=== PATIENT | male | born 1960 | race Caucasian/White ===

== ENCOUNTER 2023-04-23 03:15 | Emergency (ER) | payer BC, SELFPAY ==
[2023-04-23 03:21] VITALS: BP 136/75
--- NOTE | 2023-04-23 04:43 | ED.GENMED ---
History of Present Illness
<LON Canales - Last Filed: 04/23/23 05:30>
General
Chief Complaint: Abdominal Pain
Source: patient
Exam Limitations: none
Time Seen by Provider: 04/23/23 04:43
Nursing documentation reviewed up to this point in time: agreed with
Travel History
Have you had any contact with someone who has COVID-19?: No
Do you have any symptoms of coronavirus? Fever > 100 degrees, chills, cough, shortness of breath, sore throat, loss of taste or smell, muscle aches, or headache?: No
History of Present Illness
History of Present Illness:
This is a 63 YOM with PMHx of diverticulosis, renal stones presenting with epigastric pain x1 week. Pt mentioned intermittent nonradiating sharp/burning 4/10 abd pain with belching and acidic taste in his mouth upon waking. Pt was unable to sleep
due to the pain and worries related to his condition. Pt had one previous episode a few months ago. Pt took PeptoBismol and antacids with mild relief over the past week intermittently. Pt also mentioned feeling a bulging mass in epigastric area. Pt
mentioned feeling constipated over the past few days but had normal BM yesterday. Pt denied chest pain, SOB, N/V/D/C, FRANKS, dizziness, vision changes, MSK weakness, sensory changes. Pt has FHx of ACS in both parents, father with mild IA and mother
with CAD and stenting. PE significant for palpable epigastric ventral abd mass.
Past History
<LON Canales - Last Filed: 04/23/23 05:30>
Past History
ED Past Medical History: None; Negative HTN, Hypercholesterolemia or NIDDM
ED Past Surgical History: Urological (Kidney stone)
Social History
Tobacco: Former smoker
Alcohol: None
Personal:
Living: with family
Review of Systems
<LON Canales - Last Filed: 04/23/23 05:30>
Review of Systems
Allergies reviewed?: Yes
All Other Systems: ROS reviewed and negative except as documented in HPI and ROS
Constitutional: Reports no symptoms
EENT: Reports no symptoms
Respiratory: Reports no symptoms
Cardiac: Reports no symptoms
ABD/GI: Reports abdominal pain
: Reports no symptoms
Musculoskeletal: Reports no symptoms
Skin: Reports no symptoms
Neurological: Reports no symptoms
Hematologic/Lymphatic: Reports no symptoms
Psychiatric: Reports no symptoms
Phy Exam
<LON Canales - Last Filed: 04/23/23 05:30>
General Physical Exam
General Presentation: well appearing
General age: appears stated age
General Skin: warm and dry
General Habitus: normal
General Mental: alert
General Hydration: appears well hydrated
ENT Exam
ENT Exam: EOMI, neck supple and swallowing well
Eye Exam
Eye Exam: PERRL and EOMI
Cardiovascular Exam
Cardiovascular Exam: regular rate/rhythm
Pulmonary Exam
Pulmonary Exam: lungs clear, no respiratory distress, no rales, chest non tender, no crackles, no rhonchi, no stridor, no wheezing and no cough
Gastrointestinal Exam
Gastrointestinal Exam: normal bowel sounds, non tender, soft, no pulsatile mass, non distended and mass (ventral hernia)
Neurological Exam
Neurological Exam: alert, oriented x3, no motor deficits, no sensory deficits and speech normal
Skin Exam
Skin Exam: normal color and warm/dry
Psychiatric Exam
Psychiatric Exam: normal mood/affect
Course
<LON Canales - Last Filed: 04/23/23 05:30>
Orders/Labs/Results
Orders:
Orders
04/23/23 03:30
EKG [Electrocardiogram (*1)] Urgent
Reason for Study: Abdominal Pain
EKG- Treatment ONCE
04/23/23 05:16
IV Insert/Care/Rem.- Treatment PRN
04/23/23 05:18
Pantoprazole [Protonix IV] 40 mg IV NOW STA
04/23/23 05:33
Complete Blood Count/With Diff Urgent
Comprehensive Metabolic Panel Urgent
Lipase Urgent
Troponin I Urgent
Abnormal Lab Results
04/23/23
05:33
Absolute Monos (auto) 1.0 H 10^3/uL
(0.1-0.6)
Monocytes % 15.9 H %
(1.7-9.3)
Glucose 113 H mg/dl
(70-99)
04/23/23 05:33
04/23/23 05:33
Vital Signs
Initial and Last Documented VS:
Initial Vital Signs
Temp Pulse Resp BP Pulse Ox
98.1 F 70 16 136/75 97
04/23/23 03:21 04/23/23 03:21 04/23/23 03:21 04/23/23 03:21 04/23/23 03:21
Last Documented Vital Signs
Temp Pulse Resp BP Pulse Ox
98.1 F 60 23 125/64 97
04/23/23 03:21 04/23/23 05:45 04/23/23 05:42 04/23/23 05:42 04/23/23 05:45
<Toro Justice, DO - Last Filed: 04/23/23 06:30>
Orders/Labs/Results
Orders:
Orders
04/23/23 03:30
EKG [Electrocardiogram (*1)] Urgent
Reason for Study: Abdominal Pain
EKG- Treatment ONCE
04/23/23 05:16
IV Insert/Care/Rem.- Treatment PRN
04/23/23 05:18
Pantoprazole [Protonix IV] 40 mg IV NOW STA
04/23/23 05:33
Complete Blood Count/With Diff Urgent
Comprehensive Metabolic Panel Urgent
Lipase Urgent
Troponin I Urgent
Abnormal Lab Results
04/23/23
05:33
Absolute Monos (auto) 1.0 H 10^3/uL
(0.1-0.6)
Monocytes % 15.9 H %
(1.7-9.3)
Glucose 113 H mg/dl
(70-99)
04/23/23 05:33
04/23/23 05:33
Vital Signs
Initial and Last Documented VS:
Initial Vital Signs
Temp Pulse Resp BP Pulse Ox
98.1 F 70 16 136/75 97
04/23/23 03:21 04/23/23 03:21 04/23/23 03:21 04/23/23 03:21 04/23/23 03:21
Last Documented Vital Signs
Temp Pulse Resp BP Pulse Ox
98.1 F 60 23 125/64 97
04/23/23 03:21 04/23/23 05:45 04/23/23 05:42 04/23/23 05:42 04/23/23 05:45
<LON Canales - Last Filed: 04/23/23 05:30>
MDM/Problems Addressed
Differential Diagnosis Includes:
IA, cholecystitis, pancreatitis, GERD, hiatal hernia
MDM/Problems Addressed:
63 YOM presenting with epigastric pain
<LON Canales - Last Filed: 04/23/23 05:30>
*Pulse Oximetry
Patient hypoxic: no
*Critical Care Note
Total Time (30-74mins, 75-104mins- exclusive of procedures): Not Applicable
<Toro Justice DO - Last Filed: 04/23/23 06:30>
*EKG
Interpreted by ED Provider?: Yes
EKG Intrepretation Date: 04/23/23
EKG Intrepretation Time: 03:40
Interpretation: abnormal
Comparison EKG: no comparison EKG present
Heart Rate: 57
Rate: bradycardiac
Rhythm: sinus
[place]: normal axis
Interval: normal interval
QRS Pattern: normal QRS
Ischemia: no ischemia
*Telecommunications Professional Interpretation
Rate: bradycardiac
Interpretation: normal
Heart Rate: 58
Rhythm: sinus
Data Reviewed
Further Testing Considered But Not Given:
Chest x-ray, ultrasound abdomen and CT chest not indicated
<Toro Justice, - Last Filed: 04/23/23 06:30>
Patient Management
Social determinants of health affecting care: Living situation
Escalation/DeEscalation of care consider admission/obs:
Admit not indicated
ED Attending Note
<LON Canales - Last Filed: 04/23/23 05:30>
-
Portions of this chart may have been created with voice recognition software.� Occasional wrong word or��sound alike� substitutions may have occurred due to the inherent limitations of voice recognition software.
<Toro Justice DO - Last Filed: 04/23/23 06:30>
ED Attending Note
Patient seen and examined by attending physician: Yes
I performed the substantive portion of visit, reviewed & personally made and approve the management plan that is documented in note by myself or ANNI.: Yes
I performed a history and physical exam of patient and discussed management with resident, I reviewed resident's note and agree with documented findings and plan of care.: Yes
ED Attending Note:
I have reviewed and agree with history and treatment plan by Torie Astudillo. My exam revealed
Physical Exam
General: no apparent distress, not acutely ill
Neck: supple. no meningeal signs. normal posterior pharynx
Heart: s1/s2 regular rate and rhythm, no murmur. equal radial
pulses.
HEENT: Pupils equal round reactive to light, EOMI
Lungs: no acute respiratory distress. clear bilaterally
Abdomen: normal bowel sounds. not tender. no CVAT, ventral hernia, epigastric region
Neuro: alert and oriented. no focal neurological deficits cranial nerves II through XII intact
Skin: no rash
Psychiatric: well kept. interactive and cooperative
Extremities: no edema. no calf tenderness. negative homans. good distal pulses
63-year-old male with epigastric pain, symptoms consistent with reflux. EKG normal, troponin lipase and LFTs negative. Patient feels improved after IV Protonix. Discharged with prescription Protonix. Return precautions given.
Discharge Plan
Departure
Patient Disposition: Home (Routine Discharge)
Date of Disposition: 04/23/23
Time of Disposition: 06:22
Patient with high blood pressure during this ER visit?: Yes
Condition: Good
Discharge Problem:
Acute epigastric pain, Gastroesophageal reflux disease
Instructions: Acid Reflux and GERD in Adults (DC), Abdominal Pain, BLOOD PRESSURE
Prescriptions:
New
pantoprazole [Protonix] 40 mg tablet,delayed release (DR/EC)
40 mg PO DAILY Qty: 30 0RF
No Action
psyllium 425 GM powder
1 dose PO DAILY
Referrals:
Claude Argueta CRNP [Family Provider] -
Interventions
Interventions:
*General Assessment Last Done: 04/23/23 03:21
*Neglect/Abuse Screening Last Done: 04/23/23 03:21
ED- Fall Risk Assessment Last Done: 04/23/23 03:21
*ED COVID-19 Vaccine History Last Done: 04/23/23 03:21
[2023-04-23 05:37] LABS: % Basophils 0.5 % (0-2); % Eosinophils 0.8 % (0-6); % Immature Granulocytes 0.3 % (0-0.5); % Lymphocytes 25.8 % (20.5-51.1); % Monocytes 15.9 % (1.7-9.3); % Neutrophils 56.7 % (42.2-75.2); Absolute Eosinophils 0.1 10^3/uL (0-0.7); Absolute Lymphocytes 1.7 10^3/uL (1.2-3.4); Absolute Neutrophils 3.7 10^3/uL (1.4-6.5); Hematocrit 46.6 % (39.0-52.0); Hemoglobin 16.6 g/dL (13.0-18.0); Mean Corp Hgb Conc. 35.6 g/dL (33.0-37.0); Mean Corpuscular Hgb 30.9 pg (27.0-31.0); Mean Corpuscular Volume 86.6 fL (80.0-94.0); Mean Platelet Volume 8.1 fL (7.4-10.4); Nucleated Red Blood Cells % 0 % (-); Platelet Count 202 10^3/uL (130-400); Red Blood Cell Count 5.38 10^6/uL (4.70-6.10); Red Cell Dist. Width 13.2 % (11.5-14.5); White Blood Cell Count 6.6 10^3/uL (4.8-10.8)
[2023-04-23] MEDS: PROTONIX IV 40 MG IV (05:39)
[2023-04-23 05:42] VITALS: BP 125/64
[2023-04-23 05:54] LABS: ALT (SGPT) 29 U/L (0-50); AST (SGOT) 25 U/L (17-59); Albumin 4.2 g/dl (3.5-5.0); Alkaline Phosphatase 64 U/L (38-126); Blood Urea Nitrogen 16 mg/dl (9-20); Calcium 9.2 mg/dl (8.4-10.2); Carbon Dioxide 27 mmol/L (22-30); Chloride 106 mmol/L (98-107); Glucose 113 mg/dl (70-99); Lipase 131 U/L (23-300); Potassium 4.1 mmol/L (3.5-5.1); Sodium 136 mmol/L (135-145); Total Bilirubin 0.8 mg/dl (0.2-1.3); Total Protein 6.7 g/dl (6.3-8.2); eGFR > 60.00
[2023-04-23 06:05] LABS: Troponin I < 0.012 ng/ml
== END 2023-04-23 07:04 | disposition home or self-care (01) ==
LOC: EMR 03:15
PROVIDERS: EMERGENCY PHYSICIAN Emergency Medicine; FAMILY PHYSICIAN Registered Nurse
DX: R10.13 Epigastric pain (principal); K21.9 Gastro-esophageal reflux disease without esophagitis; Z82.49 Family history of ischemic heart disease and other diseases of the circulatory system; Z87.442 Personal history of urinary calculi; Z87.891 Personal history of nicotine dependence
CPT/HCPCS: 99283; 96374; 80053; 83690; 84484; 85025; 93005

== ENCOUNTER 2023-04-25 06:15 | Emergency (ER) | payer BC, SELFPAY ==
[2023-04-25 06:17] VITALS: BP 140/80
--- NOTE | 2023-04-25 07:50 | ED.GENMED ---
History of Present Illness
<CHARLES Lacey - Last Filed: 04/25/23 17:13>
General
Chief Complaint: Abdominal Pain
Source: patient
Exam Limitations: none
Time Seen by Provider: 04/25/23 07:06
Nursing documentation reviewed up to this point in time: agreed with
Travel History
Have you had any contact with someone who has COVID-19?: No
Do you have any symptoms of coronavirus? Fever > 100 degrees, chills, cough, shortness of breath, sore throat, loss of taste or smell, muscle aches, or headache?: No
History of Present Illness
History of Present Illness:
63-year-old male presents to the ER for evaluation of upper abdominal pain. Patient reports he was here 2 days ago. He was diagnosed with reflux at that time. He Does complain of pain in the epigastric area but now feels pain more in the right
upper quadrant area. Patient denies any nausea/vomiting. Patient was going to try Pepto-Bismol but did not. Patient reports pain seems to be constantly there but becomes worse at times. He is unsure if it is made worse with food. He was
diagnosed with ventral hernia when he was seen here 2 days ago. He does feel a bulge in his upper abdominal region.
He denies any chest pain back pain. He denies any recent fever chills.
Past History
<CHARLES Lacey - Last Filed: 04/25/23 17:13>
Past History
ED Past Medical History: None; Negative HTN, Hypercholesterolemia or NIDDM
ED Past Surgical History: Urological (Kidney stone)
Social History
Tobacco: Former smoker
Alcohol: None
Personal:
Living: with family
Review of Systems
<CHARLES Lacey - Last Filed: 04/25/23 17:13>
Review of Systems
Allergies reviewed?: Yes
All Other Systems: ROS reviewed and negative except as documented in HPI and ROS
Constitutional: Reports no symptoms; Denies fever, fatigue or chills
EENT: Reports no symptoms
Respiratory: Reports no symptoms
Cardiac: Reports no symptoms
ABD/GI: Reports abdominal pain; Denies nausea, vomiting or diarrhea
: Reports no symptoms
Skin: Reports no symptoms
Neurological: Reports no symptoms
Psychiatric: Reports no symptoms
Phy Exam
<CHARLES Lacey - Last Filed: 04/25/23 17:13>
General Physical Exam
General Presentation: no apparent distress
General age: appears stated age
General Skin: warm and dry
General Habitus: normal
General Mental: alert
General Hydration: appears well hydrated
Gastrointestinal Exam
Gastrointestinal Exam: non tender and soft
Neurological Exam
Neurological Exam: alert and oriented x3
Musculoskeletal Exam
Musculoskeletal Exam: full ROM
Skin Exam
Skin Exam: normal color and warm/dry
Psychiatric Exam
Psychiatric Exam: normal mood/affect
Course
<CHARLES Lacey - Last Filed: 04/25/23 17:13>
Orders/Labs/Results
Orders:
Orders
04/25/23 07:45
IV Insert/Care/Rem.- Treatment PRN
0.9% Sodium Chloride 1000 ml [Nss] 1,000 ml IV BOLUS
04/25/23 07:49
Mag Hydrox/Al Hydrox/Simeth [Maalox] 30 ml Phenobarb/Hyoscy/Atropine/Scop [] 10 ml PO NOW
04/25/23 07:51
US Abdomen Complete/Upper Urgent
Comment:
Reason For Exam: epigastric/ruq pain
04/25/23 08:08
Mag Hydrox/Al Hydrox/Simeth [Maalox] 30 ml .ROUTE .STK-MED ONE
Phenobarb/Hyoscy/Atropine/Scop [] 10 ml .ROUTE .STK-MED ONE
04/25/23 08:09
Complete Blood Count/With Diff Urgent
Comprehensive Metabolic Panel Urgent
Lipase Urgent
04/25/23 10:37
CT Abd/pelvis W Iv Cont Urgent
Comment:
Reason For Exam: Upper abd pain
Abnormal Lab Results
04/25/23
08:09
Absolute Monos (auto) 0.8 H 10^3/uL
(0.1-0.6)
Monocytes % 14.4 H %
(1.7-9.3)
Sodium 134 L mmol/L
(135-145)
Glucose 113 H mg/dl
(70-99)
04/25/23 08:09
04/25/23 08:09
Vital Signs
Initial and Last Documented VS:
Initial Vital Signs
Temp Pulse Resp BP Pulse Ox
97.8 F 70 24 140/80 98
04/25/23 06:17 04/25/23 06:17 04/25/23 06:17 04/25/23 06:17 04/25/23 06:17
Last Documented Vital Signs
Temp Pulse Resp BP Pulse Ox
97.8 F 63 18 119/70 97
04/25/23 06:17 04/25/23 12:18 04/25/23 12:18 04/25/23 12:18 04/25/23 12:18
Clinical Lab Scientist consulted with Physician
Clinical Lab Scientist consulted with physician?: Yes
Name of Physician Consulted: elmo
<Mark Prieto, DO - Last Filed: 04/25/23 10:43>
Orders/Labs/Results
Orders:
Orders
04/25/23 07:45
IV Insert/Care/Rem.- Treatment PRN
0.9% Sodium Chloride 1000 ml [Nss] 1,000 ml IV BOLUS
04/25/23 07:49
Mag Hydrox/Al Hydrox/Simeth [Maalox] 30 ml Phenobarb/Hyoscy/Atropine/Scop [] 10 ml PO NOW
04/25/23 07:51
US Abdomen Complete/Upper Urgent
Comment:
Reason For Exam: epigastric/ruq pain
04/25/23 08:08
Mag Hydrox/Al Hydrox/Simeth [Maalox] 30 ml .ROUTE .STK-MED ONE
Phenobarb/Hyoscy/Atropine/Scop [] 10 ml .ROUTE .STK-MED ONE
04/25/23 08:09
Complete Blood Count/With Diff Urgent
Comprehensive Metabolic Panel Urgent
Lipase Urgent
04/25/23 10:37
CT Abd/pelvis W Iv Cont Urgent
Comment:
Reason For Exam: Upper abd pain
Abnormal Lab Results
04/25/23
08:09
Absolute Monos (auto) 0.8 H 10^3/uL
(0.1-0.6)
Monocytes % 14.4 H %
(1.7-9.3)
Sodium 134 L mmol/L
(135-145)
Glucose 113 H mg/dl
(70-99)
04/25/23 08:09
04/25/23 08:09
Vital Signs
Initial and Last Documented VS:
Initial Vital Signs
Temp Pulse Resp BP Pulse Ox
97.8 F 70 24 140/80 98
04/25/23 06:17 04/25/23 06:17 04/25/23 06:17 04/25/23 06:17 04/25/23 06:17
Last Documented Vital Signs
Temp Pulse Resp BP Pulse Ox
97.8 F 63 18 119/70 97
04/25/23 06:17 04/25/23 12:18 04/25/23 12:18 04/25/23 12:18 04/25/23 12:18
<CHARLES Lacey - Last Filed: 04/25/23 17:13>
MDM/Problems Addressed
Differential Diagnosis Includes:
not limited to: Reflux, biliary colic, pancreatitis
MDM/Problems Addressed:
Patient was seen here 2 days ago diagnosed with acute epigastric pain/reflux. Patient was given a prescription for Protonix. He reports he took 1 dose of Protonix and actually 1 dose of Zantac. He believes the Zantac may have helped a little bit
but presented to the ER today again with complaints of epigastric discomfort more discomfort in the right upper quadrant. With pain increased in the right upper quadrant today and ultrasound was performed which was negative for acute findings.
LFTs are normal. Patient was given GI cocktail he will feel slight improve. Symptoms still consistent reflux will need GI, endoscopy.
Pt was eval by ED physician CAT scan ordered which does also show constipation.
Will DC with patient continuing Protonix will give GI follow-up and have patient start Miralax. Patient does have his own GI specialist Dr. Giovanni Tapia whom he will like to see
<CHARLES Lacey - Last Filed: 04/25/23 17:13>
*Radiology
Radiology exam reviewed: radiology read reviewed
*Pulse Oximetry
Patient hypoxic: no
*Critical Care Note
Total Time (30-74mins, 75-104mins- exclusive of procedures): Not Applicable
Data Reviewed
Review of Other/Old Records Reveals: Other (prior ED visit )
ED Attending Note
<CHARLES Lacey - Last Filed: 04/25/23 17:13>
-
Portions of this chart may have been created with voice recognition software.� Occasional wrong word or��sound alike� substitutions may have occurred due to the inherent limitations of voice recognition software.
<Mark Prieto DO - Last Filed: 04/25/23 10:43>
ED Attending Note
Patient seen and examined by attending physician: Yes
I performed the substantive portion of visit, reviewed & personally made and approve the management plan that is documented in note by myself or ANNI.: Yes
ED Attending Note:
I have seen and evaluated the patient with a [id number] encounter. I have spoken to the advance practicer provider and involved in the medical history, the physical exam, medical decision making.
Evaluation and management service: agree unless noted differently below.
Results interpretation: agree unless noted differently below.
Focused HPI: 63-year-old male presenting with upper abdominal pain. He was seen in the emergency department recently and discharged with plan for GI follow-up. It was presumed gastritis. However, symptoms have worsened.
Physical exam: Well-appearing and nontoxic. Mild epigastric discomfort
Medical Decision Making: Ultrasound performed showing no evidence of gallbladder pathology. Given the persistent symptoms, will obtain CT but discussed likely gastritis, treatment and follow-up with GI
Discharge Plan
Departure
Patient Disposition: Home (Routine Discharge)
Date of Disposition: 04/25/23
Time of Disposition: 12:03
Patient with high blood pressure during this ER visit?: Yes
Condition: Fair
Covid-19: Not Applicable
Discharge Problem:
upper abdominal pain , Acute constipation
Instructions: Constipation, Adult (DC), Abdominal Pain, BLOOD PRESSURE
Prescriptions:
No Action
pantoprazole [Protonix] 40 mg tablet,delayed release (DR/EC)
40 mg PO DAILY Qty: 30 0RF
acetaminophen [Tylenol Extra Strength] 500 mg Tablet
1,000 mg PO BIDPRN PRN (Reason: mild pain)
carboxymethylcellulose sodium [Refresh Tears] 0.5 % Drops
1 drp BOTH EYES BID PRN (Reason: dry eyes)
naproxen sodium [Aleve] 220 mg Tablet
220 mg PO DAILYPRN PRN (Reason: mild pain)
magnesium 200 mg Tablet
400 mg PO QPM
Visbiome 112.5 billion cell Capsule
1 cap PO DAILY
Centrum Silver 400-250 mcg Tablet,Chewable
2 tab PO DAILY
Metamucil 3.4 gram/5.4 gram Powder
1 tsp PO HS
Referrals:
Claude Argueta CRNP [Family Provider] -
Activity Restrictions/Additional Instructions:
Follow-up with your GI specialist as soon as possible for further reevaluation. You likely may need endoscopy. Call today for an appointment. Continue previously prescribed Protonix. You may also continue to take Metamucil as discussed and for
constipation please start MiraLAX daily. Return if any worsening of symptoms.
Interventions
Interventions:
*Risk Screen - Suicide Last Done: 04/25/23 06:17
*General Assessment Last Done: 04/25/23 09:35
*Neglect/Abuse Screening Last Done: 04/25/23 06:17
ED- Fall Risk Assessment Last Done: 04/25/23 09:35
*ED COVID-19 Vaccine History Last Done: 04/25/23 09:35
*Nursing Disposition Last Done: 04/25/23 12:18
[id number] Assessment Last Done: 04/25/23 09:35
Discharge Date and Time
Discharge Date/Time: 04/25/23 12:18
[2023-04-25] MEDS: MAALOX 40 PO (08:11)
[2023-04-25] MEDS: NSS 1000 IV (08:13)
[2023-04-25 08:25] LABS: % Basophils 0.9 % (0-2); % Eosinophils 0.7 % (0-6); % Immature Granulocytes 0.2 % (0-0.5); % Lymphocytes 23.9 % (20.5-51.1); % Monocytes 14.4 % (1.7-9.3); % Neutrophils 59.9 % (42.2-75.2); Absolute Basophils 0.1 10^3/uL (0-0.2); Absolute Lymphocytes 1.4 10^3/uL (1.2-3.4); Absolute Monocytes 0.8 10^3/uL (0.1-0.6); Absolute Neutrophils 3.4 10^3/uL (1.4-6.5); Hematocrit 46.7 % (39.0-52.0); Hemoglobin 16.5 g/dL (13.0-18.0); Mean Corp Hgb Conc. 35.3 g/dL (33.0-37.0); Mean Corpuscular Hgb 30.8 pg (27.0-31.0); Mean Corpuscular Volume 87.3 fL (80.0-94.0); Mean Platelet Volume 8.3 fL (7.4-10.4); Nucleated Red Blood Cells % 0 % (-); Platelet Count 203 10^3/uL (130-400); Red Blood Cell Count 5.35 10^6/uL (4.70-6.10); Red Cell Dist. Width 12.9 % (11.5-14.5); White Blood Cell Count 5.6 10^3/uL (4.8-10.8)
[2023-04-25 08:39] LABS: ALT (SGPT) 25 U/L (0-50); AST (SGOT) 24 U/L (17-59); Albumin 4.2 g/dl (3.5-5.0); Alkaline Phosphatase 63 U/L (38-126); Blood Urea Nitrogen 15 mg/dl (9-20); Calcium 8.7 mg/dl (8.4-10.2); Carbon Dioxide 29 mmol/L (22-30); Chloride 101 mmol/L (98-107); Glucose 113 mg/dl (70-99); Lipase 77 U/L (23-300); Potassium 4.2 mmol/L (3.5-5.1); Sodium 134 mmol/L (135-145); Total Bilirubin 0.8 mg/dl (0.2-1.3); Total Protein 6.5 g/dl (6.3-8.2); eGFR > 60.00
[2023-04-25 12:18] VITALS: BP 119/70
== END 2023-04-25 12:18 | disposition home or self-care (01) ==
LOC: EMR 06:15
PROVIDERS: Nurse Practitioner; EMERGENCY PHYSICIAN Student in an Organized Health Care Education/Training Program; FAMILY PHYSICIAN Registered Nurse
DX: R10.11 Right upper quadrant pain (principal); K59.09 Other constipation; K21.9 Gastro-esophageal reflux disease without esophagitis; Z87.442 Personal history of urinary calculi; Z87.891 Personal history of nicotine dependence
CPT/HCPCS: 99284; 96360; 74177; 76700; 80053; 83690; 85025; Q9967

== ENCOUNTER 2023-11-10 12:54 | Inpatient (IN) | payer BC, SELFPAY ==
[2023-11-10] VITALS (18 sets, daily range): BP systolic 109–151; BP diastolic 53–102; BMI 24.3
[2023-11-10 08:18] LABS: % Basophils 0.5 % (0-2); % Immature Granulocytes 0.2 % (0-0.5); % Lymphocytes 22.7 % (20.5-51.1); % Monocytes 13.9 % (1.7-9.3); % Neutrophils 59.7 % (42.2-75.2); Absolute Eosinophils 0.2 10^3/uL (0-0.7); Absolute Lymphocytes 1.4 10^3/uL (1.2-3.4); Absolute Monocytes 0.8 10^3/uL (0.1-0.6); Absolute Neutrophils 3.6 10^3/uL (1.4-6.5); Hematocrit 45.3 % (39.0-52.0); Hemoglobin 15.9 g/dL (13.0-18.0); Mean Corp Hgb Conc. 35.1 g/dL (33.0-37.0); Mean Corpuscular Hgb 30.2 pg (27.0-31.0); Mean Corpuscular Volume 86.1 fL (80.0-94.0); Mean Platelet Volume 8.3 fL (7.4-10.4); Nucleated Red Blood Cells % 0 % (-); Platelet Count 201 10^3/uL (130-400); Red Blood Cell Count 5.26 10^6/uL (4.70-6.10); Red Cell Dist. Width 12.8 % (11.5-14.5)
[2023-11-10 08:32] LABS: ALT (SGPT) 25 U/L (0-50); AST (SGOT) 26 U/L (17-59); Albumin 4.3 g/dl (3.5-5.0); Alkaline Phosphatase 57 U/L (38-126); Blood Urea Nitrogen 24 mg/dl (9-20); Calcium 9.5 mg/dl (8.4-10.2); Carbon Dioxide 26 mmol/L (22-30); Chloride 106 mmol/L (98-107); Estimated Creatinine Clearance 85 ml/min; Glucose 130 mg/dl (70-99); Potassium 4.2 mmol/L (3.5-5.1); Sodium 138 mmol/L (135-145); Total Bilirubin 0.5 mg/dl (0.2-1.3); Total Protein 6.4 g/dl (6.3-8.2); eGFR > 60.00
--- NOTE | 2023-11-10 08:36 | ED.GENMED ---
History of Present Illness
General
Chief Complaint: Chest Pain
Source: patient
Exam Limitations: none
Time Seen by Provider: 11/10/23 07:57
Nursing documentation reviewed up to this point in time: agreed with
History of Present Illness
History of Present Illness:
63-year-old male past medical history of hyperlipidemia presenting to the emergency department today with concerns of chest pain radiation to his neck and some degree of headache starting this morning after walking downstairs. Also some discomfort
into his left arm. Was doing some squats just prior to this exercising this morning. Denies similar symptoms in the past had some mild associated shortness of breath nausea and also felt mildly sweaty but believes this may have been from his
exercise. Denies any recent trauma surgery immobilization, leg swelling.
Past History
Past History
ED Past Medical History: None; Negative HTN, Hypercholesterolemia or NIDDM
ED Past Surgical History: Urological (Kidney stone)
Social History
Tobacco: Former smoker
Alcohol: None
Personal:
Living: with family
Review of Systems
Review of Systems
Allergies reviewed?: Yes
All Other Systems: ROS reviewed and negative except as documented in HPI and ROS
Phy Exam
Physical Exam
Physical Exam:
GENERAL: Alert , in no apparent distress
EYE: pupils equal and reactive
NECK: Supple, no significant adenopathy.
ENT: o/p clr, mmm.
CARDIAC: Regular rate and rhythm .
LUNGS: Clear breath sounds bilaterally, no acute respiratory distress, no wheezes/rales/rhonchi
ABDOMEN: Soft, without focal tenderness, no r/g, no cvat
NEUROLOGICAL: Alert and oriented, no focal neuro deficits
SKIN: Warm and dry, skin intact.
MUSCULOSKELETAL: No edema, well perfused.
PSYCH: Normal and appropriate interaction.
Scores
Heart Score for Chest Pain Patients
STEMI patient?: No
History: Highly Suspicious
ECG: Nonspecific Repolarization
Age: >45 - <65 years
Risk Factors: 1 or 2 Risk Factors
Troponin: >/= 3 x Normal Limit
Heart Score for Chest Pain Patients: 7
Heart Score Risk: 72.7 % MACE over next 6 weeks
Course
Orders/Labs/Results
Orders:
Orders
11/10/23
Electrocardiogram (*1) Stat
Comment: DONE EMR
11/10/23 07:37
Electrocardiogram (*1) Urgent
Reason for Study: Chest Pain
EKG- Treatment ONCE
11/10/23 08:08
Complete Blood Count/With Diff Urgent
Comprehensive Metabolic Panel Urgent
Troponin I Urgent
11/10/23 08:17
Aspirin 325 mg PO NOW STA
Chest [CR Chest - 2 Views ] Urgent
Comment:
Reason For Exam: cp
11/10/23 09:43
CT Head W/o Iv Contrast Urgent
Comment:
Reason For Exam: FRANKS, new severe, no hx
Diphenhydramine [Benadryl] 25 mg IV NOW STA
Metoclopramide [Reglan] 10 mg IV NOW STA
11/10/23 09:44
0.9% Sodium Chloride 1000 ml [Nss] 1,000 ml IV BOLUS
11/10/23 10:20
EKG [Electrocardiogram (*1)] Urgent
Reason for Study: Chest Pain
EKG- Treatment ONCE
11/10/23 11:02
Troponin I Urgent
Urinalysis Reflex To Culture Urgent
Date Specimen was Collected: 11/10/23
Time Specimen was Collected: 10:55
11/10/23 12:34
PTT Urgent
Comment: Obtain baseline before beginning heparin infusion if not already collected
Heparin 4,000 units IV NOW STA
Nursing to Place Non Medication Order As Directed
Physician Order: PTT 6 hours after initial start of Heparin infusion
11/10/23 12:36
Nitroglycerin Sublingual [Nitrostat (Sublingual)] 0.4 mg SL [id number] PRN
11/10/23 12:37
Admit/Transfer Patient As Directed
Co-Sign Provider:
Level of Care: Inpatient admission
Assign to:: IVU
Physician / Group: Dr. Avilez
Diagnosis: NSTEMI
Reason for Hospitalization: NSTEMI
Expected length of stay greater than two midnights?: Yes
ELOS- Estimated Length of Stay in days: 3
I certify the patient meets the requirements for IP care: Yes
11/10/23 12:45
Heparin 17391 Units/250 ml 25,000 units in 250 ml IV PER PROTOCOL
Weight to be used for heparin protocol in kilograms (kg):: 81.1
Protocol:: Cardiac Tx/Acute Coronary
PTT Goal Range to be used:: PTT 73 to 111 seconds
Order type:: Initial
INITIAL Infusion Dose (UNITS/KG/hr) & then follow protocol:: 15 units/kg/hr
Infusion Dose in UNITS/hr & then follow protocol (UNITS/hr):: 1,200
INFUSION RATE in mL/hr & then follow protocol (mL/hr):: 12
PTT less than or equal to 64 seconds:: Increase rate by 200 units/hr (+ 2 mL/hr)
PTT 64.1 to 72.9 seconds:: Increase rate by 100 units/hr (+ 1 mL/hr)
PTT 73 to 111 seconds:: Target Range. No change in rate.
PTT 111.1 to 130.9 seconds:: Decrease rate by 100 units/hr (- 1 mL/hr)
PTT 131 to 199.9 seconds:: HOLD for 1 hr. Then decrease rate by 200 units/hr (- 2 mL/hr)
PTT greater than or equal to 200 seconds:: HOLD for 2 hrs & Notify Provider. Then decrease by 200 units/hr (-
2 mL/hr)
Lab follow-up:: Each change, PTT q6h until 2 consecutive are therapeutic. Then PTT
daily.
Abnormal Lab Results
11/10/23 11/10/23
08:08 11:02
Absolute Monos (auto) 0.8 H 10^3/uL
(0.1-0.6)
Monocytes % 13.9 H %
(1.7-9.3)
BUN 24 H mg/dl
(9-20)
Glucose 130 H mg/dl
(70-99)
Troponin I 0.758 H* D ng/ml
11/10/23 08:08
11/10/23 08:08
Vital Signs
Initial and Last Documented VS:
Initial Vital Signs
Temp Pulse Resp BP Pulse Ox
97.7 F 64 16 137/81 99
11/10/23 07:46 11/10/23 07:46 11/10/23 07:46 11/10/23 07:46 11/10/23 07:46
Last Documented Vital Signs
Temp Pulse Resp BP Pulse Ox
97.7 F 50 18 132/75 98
11/10/23 07:46 11/10/23 12:00 11/10/23 12:00 11/10/23 12:00 11/10/23 12:00
MDM/Problems Addressed
MDM/Problems Addressed:
63-year-old male presenting to the emergency department today with concerns of chest pressure to the central chest with radiation to his neck he claims that he had some sweatiness and nausea associated. Also some mild shortness of breath. Symptoms
have improved since arrival here. Initial EKG appears normal no signs of ischemia or arrhythmia. No change from previous chest x-ray normal patient with mildly elevated blood pressure otherwise vital signs are normal labs unremarkable. Second
troponin ordered elevated concerning for NSTEMI EKG without significant changes Case discussed with cardiology that will accept to their care. Patient started on heparin drip
*Critical Care Note
Total Time (30-74mins, 75-104mins- exclusive of procedures): Not Applicable
ED Attending Note
-
Portions of this chart may have been created with voice recognition software.� Occasional wrong word or��sound alike� substitutions may have occurred due to the inherent limitations of voice recognition software.
Discharge Plan
Departure
Patient Disposition: Admit
Date of Disposition: 11/10/23
Time of Disposition: 12:59
Admit to: IVU
Admit to doctor: Fatmata
Presentation/result/management discussed w/ accepting MD/DO: Cardiology
Patient with high blood pressure during this ER visit?: No
Condition: Good
Covid-19: Not Applicable
Discharge Problem:
Acute non-ST elevation myocardial infarction (NSTEMI)
Interventions
Interventions:
*Risk Screen - Suicide Last Done: 11/10/23 07:56
*General Assessment Last Done: 11/10/23 07:56
*Neglect/Abuse Screening Last Done: 11/10/23 07:56
ED- Fall Risk Assessment Last Done: 11/10/23 07:56
*ED COVID-19 Vaccine History Last Done: 11/10/23 07:56
ED- Cardiac Assessment Last Done: 11/10/23 07:56
[2023-11-10 08:41] LABS: Troponin I 0.033 ng/ml
[2023-11-10] MEDS: ASPIRIN 325 MG PO (09:14)
[2023-11-10] MEDS: NSS 1000 IV (11:05)
[2023-11-10] MEDS: REGLAN 10 MG IV (11:06)
[2023-11-10] MEDS: BENADRYL 25 MG IV (11:06)
[2023-11-10 11:48] LABS: Urine Albumin Negative (Neg - Trace); Urine Bilirubin Negative (Negative); Urine Character Clear (Clear); Urine Color Yellow; Urine Glucose Negative (Negative); Urine Ketone Negative (Negative); Urine Leukocyte Negative (Negative); Urine Nitrite Negative (Negative); Urine Occult Blood Negative (Negative); Urine Specific Gravity 1.015 (<1.030); Urine Urobilinogen Negative (Neg - 1+)
[2023-11-10 11:52] LABS: Troponin I 0.758 ng/ml
--- NOTE | 2023-11-10 12:43 | HPS.HSE ---
Addendum entered and electronically signed by Geremias Avilez MD 11/10/23 14:20:
I saw and examined the patient.
The DIGITAL MEDIA COORDINATOR's note was reviewed and I agree with the note.
Comment: 63 y/o male with dyslipidemia and GERD who is here for evaluation of chest pressure radiating to his neck with associated SOB and FRANKS that started this AM. This is consistent with NSTEMI.
- Heparin gtt
- Risk factor modification
- aspirin statin
- TTE
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
Original Note:
Family Physician
-
Family Physician: CHARLES Stone
Chief Complaint
-
chest discomfort
History of Present Illness
63 y/o male with dyslipidemia and GERD who is here for evaluation of chest pressure radiating to his neck with associated SOB and FRANKS that started this AM. It is improved at the time of assessment. Troponin is 0.758. EKG shows SB, but is otherwise
unremarkable. He is in no distress at the time of my assessment.
Medical History
Past Medical History
Past Medical History: Reports GERD and Hypercholesterolemia
Past Surgical History: Reports Other (kidney stone procedure 2009)
Social History
Tobacco: Former Smoker
Family History
Family History: CAD (mom)
Allergies / Home Medications
Allergies reflects when Allergies were last updated in [employer].
Home Medications with original date entered in [employer]
Allergy/Medication List:
allergy: amoxicillin and codeine
home meds:
Tylenol 1000 mg PO BID PRN
vitamin B12 1000 mcg PO BID
magnesium 400 mg PO BID
pravastatin 20 mg PO QHS
Metamucil 1 tsp PO QHS
rabeprazole 20 mg PO daily
Review of Systems
-
History Source: Patient
A 12 point ROS was completed and negative except as noted: Yes
Respiratory: Reports Trouble Breathing
Cardiac: Reports Chest Pain
Neurological: Reports Headache
Physical Exam
Vital Signs
Vital Signs
Temp Pulse Resp BP Pulse Ox
97.7 F 50 18 132/75 98
11/10/23 07:46 11/10/23 12:00 11/10/23 12:00 11/10/23 12:00 11/10/23 12:00
Physical Exam
General: Well Developed, Well Nourished and No Apparent Distress
HEENT: NormoCephalic and Anicteric
Respiratory: Clear and Non Labored Respirations
Cardiac: Regular Rhythm (SB)
Skin: Warm and Dry
Neuro: AO x 3
Psych: Calm
Laboratory Results
-
11/10/23 08:08
11/10/23 08:08
Laboratory Results
Total Bilirubin 0.5 mg/dl (0.2-1.3) 11/10/23 08:08
AST 26 U/L (17-59) 11/10/23 08:08
ALT 25 U/L (0-50) 11/10/23 08:08
Alkaline Phosphatase 57 U/L (38-126) 11/10/23 08:08
Troponin I 0.758 ng/ml H* D 11/10/23 11:02
Data Reviewed
-
Diagnostic Radiology: Report Reviewed by me (No acute cardiopulmonary abnormality.)
CT Scan: Report Reviewed by me (No acute intracranial abnormality noted.)
Medical Tests (Nuc Med, Echo, EKG etc): Image Personally Visualized and interpreted (EKG SB 45 BPM)
Lab Data: Labs Reviewed by me
Impression/Plan
-
IMPRESSION/PLAN:
NSTEMI:
-this diagnosis is threat to life
-ASA, heparin, nitro. Heparin drip requires intensive monitoring for toxicity.
-trend trops to peak, follow EKG's
-check echo
-check lipids, hgbA1C
-cardiac cath today
Dyslipidemia:
-check lipids
-notes and convo suggest some intolerance to statins (muscle cramps), but does not think he has been on Crestor. Will trial Crestor 40 mg PO daily now with suspected CAD.
GERD:
-on PPI as OP, I ordered protonix here
[2023-11-10 13:15] LABS: APTT 28.7 Sec (23.4-35.0)
[2023-11-10] MEDS: HEPARIN 4000 UNITS IV (13:40)
[2023-11-10] MEDS: HEPARIN 25000 UNITS/250 ML IV (13:44)
[2023-11-10 15:25] LABS: ACT-LR - POC 295 Seconds (116-155)
[2023-11-10] MEDS: TYLENOL 650 MG PO (16:59)
--- NOTE | 2023-11-10 17:18 | PTCARENOTE ---
Patient received from medical laboratory technologist. Tylenol given for headache. SB HR 40's. Right radial band CDI, POX 98% on the right hand. Voided in the urinal, at bedside
[2023-11-10] MEDS: CRESTOR 40 MG PO (18:01)
--- NOTE | 2023-11-10 18:09 | ITS.CL.ANGIO ---
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
Angioplasty
Procedure Report:
Procedure Report:
CARDIAC CATHETERIZATION REPORT
Date of Procedure: 11/10/2023
Referring: Dr. Geremias vAilez MD
HEMODYNAMIC DATA
AO: 106/65 (mean 84) mmHg
LV: 104/6 (EDP 20) mmHg
PROCEDURES PERFORMED:
1. Coronary angiography
2. Left heart catheterization
3. iFR of LCx
4. IVUS of LCx
5. PCI in setting of acute PA to 100% occluded OM1 and 95% occluded OM2
CORONARY ANGIOGRAPHY
Dominance: Right
Left Main: Normal
LAD: gives rise a small early D1, small D2, and moderate sized D3. There is a 80% focal stenosis in the proximal vessel with MICHELE 3 flow. There appears to be a healthy landing zone in the ostial LAD.
Circumflex: The LCx gives rise to a large OM1 and moderate caliber OM2. There is a near flush occlusion of OM1 with MICHELE 0 flow distally (this was felt to be the culprit lesion for the patient's presentation). OM2 has a proximal 95% occlusion with
MICHELE 3 flow.
RCA: gives rise to a large RPDA and large RPL branch. There are serial 30-40% stenoses in the proximal to mid vessel.
Angioplasty (PCI to OM1 and OM2)
The decision was made to intervene on the LCx, both the 100% OM1 and 95% OM2. Given the patient's young age and pre-DM, PCI of the LAD was deferred with plan to offer staged revascularization with either HAWKINS-LAD vs. PCI. A Runthrough coronary wire
was placed in OM1. Serial balloon dilation was performed in OM1 with a 2.0x12 mm Euphora with adventist of distal flow. IVUS was performed demonstrating a 3.0 mm reference diameter in OM1, 4.0 mm reference diameter in the prox LCx, and lipid rich
plaque with minimal calcium extending back to the OM1 ostium. It was felt that stenting across the LCx continuation would potentially be required, thus jailing OM2, so, the decision was made to first intervene on the OM2. A second Runthrough wire
was placed in OM2. Initial lesion preparation was performed in OM2 with the 2.0x12 mm balloon taken to nominal pressure. This resulted in no reflow distally. The patient remained stable. Serial balloon dilation was performed without improvement. IC
nitroglycerin 150 mcg was given without improvement. A TwinPass dual lumen microcatheter was then advanced to the OM2 and used to directly inject 0.75 mg verapamil. This resulted in sinus bradycardiac that was asymptotic and rapidly improved with
administration of 0.5 mg atropine. Angiography demonstrated adventist of distal flow. IVUS was then performed demonstrating a 2.0 mm distal reference vessel and 2.75 mm proximal reference vessel (the mid-LCx). A 2.0x18 mm Medtronic [place] ROCIO was
deployed at nominal pressure. There was a small area of underexpansion angiographically which was post-dilated with a 2.0x12 mm NC balloon to high pressure with improvement. POT was performed in the mid-LCx with a 2.75x8 mm NC balloon to nominal
pressure. Final angiography demonstrated an excellent result with MICHELE 3 flow and no evidence of complication. We turned our attention back to OM1. A 3.0x22 mm Medtronic [place] ROCIO was delivered and deployed at nominal pressure. This was
placed 'nailing' the ostium of OM1. There was slight protrusion back into the prox-LCx with slight angiographic pinching of the continuation of the mid-LCx but MICHELE 3 flow. Repeat IVUS confirmed approximately 1 mm overhang proximally into the
mid-LCx but good apposition and expansion throughout and no distal edge dissection. Final angiograph demonstrated an excellent result without complication. The patient was loaded with 180 mg Ticagrelor and taken to the cath recovery unit in stable
condition.
Closure Device: Perclose x1
CONCLUSIONS:
1. Mildly elevated LV filling pressures with no aortic stenosis
2. Two-vessel obstructive coronary artery disease with culprit 100% thrombotic occlusion of a large OM1, as well as non-culprit 95% OM2 stenosis and 80% proximal LAD stenosis.
3. Successful IVUS-guided PCI to the OM2 with placement of a 2.0x18 mm [place] ROCIO post-dilated to high pressure with a 2.0 mm NC balloon and proximally with a 2.75 mm NC balloon.
4. Successful IVUS-guided PCI to the OM1 with placement of a 3.0x22 mm ROCIO
RECOMMENDATIONS:
1. DAPT with ASA/Ticagrelor for at least 1 year.
2. Aggressive secondary prevention of coronary artery disease including goal LDL<70
3. Cardiac rehab
4. Staged revascularization of the proximal LAD with consideration for robotic HAWKINS-LAD given young age and pre-DM, though PCI would be feasible in this vessel and would not jeopardize future HAWKINS touchdown if required
5. Follow up with Dr. Robb as scheduled
Copy To: Delano Robb,
Signed: Jose Mosquera MD, PhD
[2023-11-10] MEDS: MAG-TAB SR 84 MG PO (19:53)
[2023-11-10] MEDS: FLUSH (NSS) 1 FLUSH IV (19:54)
[2023-11-10] MEDS: VITAMIN B-12 PO (19:54)
[2023-11-10] MEDS: METAMUCIL, KONSYL 1 PACKET PO (21:21)
--- NOTE | 2023-11-10 22:07 | PTCARENOTE ---
Patient received at change of shift. Awake, alert, and oriented in bed. Right radial site clean, dry and intact. Removed radial band at 2029. New dressing applied to radial site. BP 109/62, HR SB-SR 50s-60s. Ambulatory to the bathroom. Discussed
calling the nurse if any pain or bleeding begins at site. Call clarke within reach.
Patient brought in medications from home. Sent down to pharmacy.
[2023-11-11 04:32] VITALS: BP 115/49
--- NOTE | 2023-11-11 04:53 | PTCARENOTE ---
No chest pain overnight. Vital signs stable. Right wrist clean, dry and intact. Patient ambulating in the room independently.
[2023-11-11 05:04] LABS: Hematocrit 40.6 % (39.0-52.0); Hemoglobin 14.6 g/dL (13.0-18.0); Mean Corpuscular Hgb 30.4 pg (27.0-31.0); Mean Corpuscular Volume 84.6 fL (80.0-94.0); Mean Platelet Volume 8.8 fL (7.4-10.4); Platelet Count 194 10^3/uL (130-400); Red Cell Dist. Width 12.9 % (11.5-14.5); White Blood Cell Count 9.5 10^3/uL (4.8-10.8)
[2023-11-11 05:30] LABS: Blood Urea Nitrogen 15 mg/dl (9-20); Calcium 8.9 mg/dl (8.4-10.2); Carbon Dioxide 23 mmol/L (22-30); Chloride 103 mmol/L (98-107); Estimated Creatinine Clearance 85 ml/min; Glucose 113 mg/dl (70-99); HDL Cholesterol 50 mg/dl; LDL Cholesterol, Calculated 117 mg/dl; Potassium 4.1 mmol/L (3.5-5.1); Sodium 133 mmol/L (135-145); Total Cholesterol 191 mg/dl (50-199); Triglyceride 121 mg/dl (10-149); Very Low Density Lipoprotein 24 mg/dl (0-30); eGFR > 60.00
[2023-11-11 06:34] VITALS: BP 114/70
--- NOTE | 2023-11-11 06:38 | PTCARENOTE ---
Patient had a 9 beat run of VT back into sinus rhythm. Asymptomatic, resting in bed. BP 114/70.
[2023-11-11 06:50] VITALS: BMI 23.8
[2023-11-11] MEDS: MAG-TAB SR 84 MG PO ×2 (07:36→20:00)
[2023-11-11] MEDS: VITAMIN B-12 1000 MCG PO (07:36)
[2023-11-11] MEDS: LOW STRENGTH ASPIRIN 81 MG PO (07:36)
[2023-11-11] MEDS: BRILINTA 90 MG PO ×2 (07:36→20:00)
[2023-11-11] MEDS: NON-FORMULARY ITEM 1 UNIT PO ×2 (07:37→07:38)
[2023-11-11 08:10] LABS: ACT-LR - POC > 397 Seconds (116-155)
[2023-11-11 10:12] LABS: Glycohemoglobin (HgbA1c) 6.1 % (4.0-5.6)
[2023-11-11 11:30] VITALS: BP 116/78
[2023-11-11] MEDS: LOPRESSOR 25 MG PO ×2 (11:40→20:00)
--- NOTE | 2023-11-11 12:01 | CM ---
Reviewed chart. Met with Mr. Nelson to review discharge plans. He states prior to admission he resides with his spouse in a two story home without any steps to enter. He states he has a full flight of steps to get to bedroom/full bathroom. He
states he has a powder room on the first floor. He states prior to admission he was independent with ambulation and adls. He states he does not have any DME in the home. He states he has a prescription plan with [facility] and uses [facility]. Medical work-up in progress. The discharge plan is to return home with her spouse when medically stable.
Telephone call to [facility], ([phone]) to check on co-pay for Brilinta 90 mg pobid. His co-pay for 30 day is $20.00 a month and for 90 day supply via mail order the co-pay is $30.00. He has commercial insurance so he can use the $5.00
coupon. Placed the coupon in his red discharge folder. Reviewed co-pay for him and he is agreeable to the co-pay. Telephone call to [facility] to check if they have Brilinta 90 mg po bid in stock. [facility] states they do not have it in
stock. If Brililnta is ordered today, they will have it in on Tuesday11/14/23 after 3:00 p.m. Reviewed with Anne and she will give him samples to cover him until the Brilinta comes in on Tuesday.
--- NOTE | 2023-11-11 14:42 | W.PN.CD ---
Today's Communication / Plan
-
monitor on tele for further NSVT; monitor HR/BP on new start metoprolol/lisinopril; check ticag for cost; discharge tomorrow if stable
Impression / Plan
-
63 year old man presenting with acute onset chest pain, found to have NSTEMI now status post PCI to LCx x2.
# NSTEMI
# CAD s/p ROCIO to LCx x2
- status post successful PCI to culprit 100% large OM1 and smaller 95% OM2, deferred stenting of 80% proximal LAD to allow discussion of revascularization options (surgical vs. percutaneous)
- troponin peak at 53
- TTE today without RWMA, normal EF
- short run of NSVT overnight, asymptomatic
--> asa/ticagrelor, which run for cost
--> beta girish and ACEi
--> will follow up with Dr. Robb for continued cardiology care and to discuss options for LAD revascularization. Though not technically a STEMI, he presented with an KAHLIL, thus, based on the COMPLETE trial, he is strongly indicated for non-culprit
revascularization of his proximal LAD. Given his young age and pre-DM status, it is reasonable to consider surgical revascularization with a robotic HAWKINS-LAD, with PCI as an alternative. These options will be discussed in follow up.
# HLD
- prior issues with statin intolerance and was on pravastatin at home
--> given AR, transitioned to high intensity statin
--> if further issues with intolerance, can trial different statin medications and other classes of agents, with goal LDL at least <70, ideally <55
# pre-DM
- A1c 6.2
- monitor for progression
# GERD: cont. PPI
Physical Exam
Vital Signs/Labs
Vital Signs
Temp Pulse Resp BP Pulse Ox
36.9 C 74 16 116/78 98
11/11/23 11:28 11/11/23 11:30 11/11/23 11:28 11/11/23 11:30 11/11/23 11:28
11/10/23 11/11/23 11/12/23
06:59 06:59 06:59
Actual Weight 79.5 kg
11/11/23 04:34
11/11/23 04:35
APTT Cancelled 11/10/23 19:45
Triglycerides 121 mg/dl (10-149) 11/11/23 04:35
LDL Cholesterol, Calc 117 mg/dl 11/11/23 04:35
VLDL Cholesterol, Calc 24 mg/dl (0-30) 11/11/23 04:35
HDL Cholesterol 50 mg/dl 11/11/23 04:35
LAB Results
11/10/23 11/10/23 11/10/23
08:08 11:02 17:24
Troponin I 0.033 0.758 H* D 59.100 H* D
11/10/23
22:47
Troponin I 53.400 H*
Physical Exam
Constitutional: No acute distress, Comfortable and Confusion
Cardiovascular: Rhythm & rate is regular, Pedal edema is absent, JVD pressure is normal, Systolic murmur absent and Diastolic murmur absent
Respiratory: Respiratory effort normal, Lungs clear to auscul., Wheeze Absent, Crackles Absent and Rhonchi Absent
GI: Soft and Distention absent
Neuro/Psych: Alert, Oriented and AO x 3
Other: Cath Site (c/d/i)
Data Reviewed
-
Date of Service: November 11, 2023
Medical Decision Making: Reviewed Test Results
EKG: Tracing Personally Visualized and interpreted
Echo: Tracing Personally Visualized and interpreted
Labs: Labs Reviewed by me
[2023-11-11 15:08] VITALS: BP 109/61
[2023-11-11] MEDS: CRESTOR 40 MG PO (17:13)
[2023-11-11 18:26] VITALS: BP 118/68
[2023-11-11] MEDS: VITAMIN B-12 PO (19:59)
[2023-11-11] MEDS: METAMUCIL, KONSYL 1 PACKET PO (21:36)
[2023-11-11 23:07] VITALS: BP 114/69
[2023-11-12 04:39] VITALS: BP 101/66
[2023-11-12 04:55] VITALS: BMI 23.2
[2023-11-12 05:49] LABS: Hematocrit 45.4 % (39.0-52.0); Hemoglobin 15.7 g/dL (13.0-18.0); Mean Corp Hgb Conc. 34.6 g/dL (33.0-37.0); Mean Corpuscular Hgb 30.5 pg (27.0-31.0); Mean Corpuscular Volume 88.2 fL (80.0-94.0); Mean Platelet Volume 8.5 fL (7.4-10.4); Platelet Count 190 10^3/uL (130-400); Red Blood Cell Count 5.15 10^6/uL (4.70-6.10); Red Cell Dist. Width 12.9 % (11.5-14.5); White Blood Cell Count 7.9 10^3/uL (4.8-10.8)
[2023-11-12 06:12] LABS: Blood Urea Nitrogen 16 mg/dl (9-20); Calcium 9.2 mg/dl (8.4-10.2); Carbon Dioxide 26 mmol/L (22-30); Chloride 104 mmol/L (98-107); Estimated Creatinine Clearance 85 ml/min; Glucose 109 mg/dl (70-99); Potassium 4.3 mmol/L (3.5-5.1); Sodium 137 mmol/L (135-145); eGFR > 60.00
[2023-11-12 08:50] VITALS: BP 113/59
[2023-11-12] MEDS: LOPRESSOR 25 MG PO (09:08)
[2023-11-12] MEDS: LOW STRENGTH ASPIRIN 81 MG PO (09:09)
[2023-11-12] MEDS: ZESTRIL 5 MG PO (09:09)
[2023-11-12] MEDS: MAG-TAB SR 84 MG PO (09:09)
[2023-11-12] MEDS: VITAMIN B-12 1000 MCG PO (09:09)
[2023-11-12] MEDS: BRILINTA 90 MG PO (09:10)
[2023-11-12] MEDS: NON-FORMULARY ITEM 1 UNIT PO ×2 (09:10→09:11)
--- NOTE | 2023-11-12 09:46 | W.PN.CD ---
Today's Communication / Plan
-
d/c today
Impression / Plan
-
63 year old man presenting with acute onset chest pain, found to have NSTEMI now status post PCI to LCx x2.
# NSTEMI
# CAD s/p ROCIO to LCx x2
- status post successful PCI to culprit 100% large OM1 and smaller 95% OM2, deferred stenting of 80% proximal LAD to allow discussion of revascularization options (surgical vs. percutaneous)
- troponin peak at 53
- TTE today without RWMA, normal EF
- short run of NSVT overnight, asymptomatic
--> asa/ticagrelor, which run for cost
--> beta girish and ACEi
--> will follow up with Dr. Robb for continued cardiology care and to discuss options for LAD revascularization. Though not technically a STEMI, he presented with an KAHLIL, thus, based on the COMPLETE trial, he is strongly indicated for non-culprit
revascularization of his proximal LAD. Given his young age and pre-DM status, it is reasonable to consider surgical revascularization with a robotic HAWKINS-LAD, with PCI as an alternative. These options will be discussed in follow up.
# HLD
- prior issues with statin intolerance and was on pravastatin at home
--> given PA, transitioned to high intensity statin
--> if further issues with intolerance, can trial different statin medications and other classes of agents, with goal LDL at least <70, ideally <55
# pre-DM
- A1c 6.2
- monitor for progression
# GERD: cont. PPI
Physical Exam
Vital Signs/Labs
Vital Signs
Temp Pulse Resp BP Pulse Ox
99.0 F 65 18 113/59 97
11/12/23 08:50 11/12/23 09:08 11/12/23 08:50 11/12/23 09:08 11/12/23 08:50
11/11/23 11/12/23 11/13/23
06:59 06:59 06:59
Actual Weight 175 lb 4.28 oz 170 lb 10.205 oz
11/12/23 04:52
11/12/23 04:52
APTT Cancelled 11/10/23 19:45
Triglycerides 121 mg/dl (10-149) 11/11/23 04:35
LDL Cholesterol, Calc 117 mg/dl 11/11/23 04:35
VLDL Cholesterol, Calc 24 mg/dl (0-30) 11/11/23 04:35
HDL Cholesterol 50 mg/dl 11/11/23 04:35
LAB Results
11/10/23 11/10/23 11/10/23
08:08 11:02 17:24
Troponin I 0.033 0.758 H* D 59.100 H* D
11/10/23
22:47
Troponin I 53.400 H*
Physical Exam
Constitutional: No acute distress and Comfortable
Cardiovascular: Rhythm & rate is regular and Pedal edema is absent
Respiratory: Respiratory effort normal and Lungs clear to auscul.
GI: Soft
Neuro/Psych: AO x 3
Data Reviewed
-
Date of Service: November 12, 2023
Medical Decision Making: Reviewed Test Results
EKG: Tracing Personally Visualized and interpreted (sr)
Echo: Tracing Personally Visualized and interpreted and Report Reviewed by me
Labs: Labs Reviewed by me
[2023-11-12 11:26] VITALS: BP 107/75
--- NOTE | 2023-11-14 08:13 | W.DS.TRANS ---
DC Summary - [employer]
-
Discharge Instructions:
Discharge Diagnosis/Procedures NSTEMI
Angioplasty with stent x1 to first OM and x1 to
Second OM arteries
Diet Low Cholesterol,Diabetic, Carb Controlled
Activity No strenuous activity
Additional Activity NO heavy lifting >10lbs, strenuous activity or
sexual intimacy until seen by Dr. Robb/after
cardiac surgery. If you get chest pain, place a
nitroglycerin under your tongue and call 911/go
to ER immediately.
Driving Restrictions No driving for 24 hours
Bathing Restrictions OK to Shower
Other Services Cardiac Rehab
Instructions:
Stand-Alone Forms: DC Instructions- Cath/EP Lab
Return to Work
Changes to Home Medications: Yes
Discharge Medications:
DC Medications w/original date entered in [employer]
acetaminophen 500 mg tablet (Tylenol Extra Strength) 1,000 mg PO BIDPRN PRN mild pain 04/25/23
magnesium 200 mg tablet 400 mg PO BID 04/25/23
psyllium husk 3.4 gram/5.4 gram oral powder (Metamucil) 1 tsp PO HS 04/25/23
cyanocobalamin (vitamin B-12) 1,000 mcg tablet 1,000 mcg PO BID 11/10/23
rabeprazole 20 mg tablet,delayed release 20 mg PO DAILY 11/10/23
aspirin 81 mg chewable tablet 81 mg PO DAILY #30 tabs 11/11/23
lisinopril 5 mg tablet 5 mg PO DAILY #90 tabs 11/11/23
metoprolol tartrate 25 mg tablet 25 mg PO BID #180 tabs 11/11/23
nitroglycerin 0.4 mg sublingual tablet 0.4 mg sublingual [id number] PRN chest pain #25 tabs 11/11/23
rosuvastatin 40 mg tablet 40 mg PO QPM #90 tabs 11/11/23
ticagrelor 90 mg tablet (Brilinta) 90 mg PO BID #60 tabs 11/11/23
Home Medication Changes
NEW: ticagrelor, rosuvastatin, nitrostat, metoprolol tartrate, lisinopril, aspirin
STOP: pravastatin
Pending Results: No
== END 2023-11-12 11:58 | disposition home or self-care (01) | DRG 322 ==
LOC: IVU 12:54
PROVIDERS: Nurse Practitioner; Physician Assistant; Student in an Organized Health Care Education/Training Program; ADMITTING PHYSICIAN Internal Medicine Cardiovascular Disease; EMERGENCY PHYSICIAN Emergency Medicine; FAMILY PHYSICIAN Registered Nurse
PROC: 4A033BC Measurement of Arterial Pressure, Coronary, Percutaneous Approach (ICD-10-PCS; 2023-11-10)
PROC: B240ZZ3 Ultrasonography of Single Coronary Artery, Intravascular (ICD-10-PCS; 2023-11-10)
PROC: 027135Z Dilation of Coronary Artery, Two Arteries with Two Drug-eluting Intraluminal Devices, Percutaneous Approach (ICD-10-PCS; 2023-11-10)
PROC: B2111ZZ Fluoroscopy of Multiple Coronary Arteries using Low Osmolar Contrast (ICD-10-PCS; 2023-11-10)
PROC: 4A023N7 Measurement of Cardiac Sampling and Pressure, Left Heart, Percutaneous Approach (ICD-10-PCS; 2023-11-10)
DX: I21.4 Non-ST elevation (NSTEMI) myocardial infarction (principal); I47.29 Other ventricular tachycardia; I25.10 Atherosclerotic heart disease of native coronary artery without angina pectoris; E78.00 Pure hypercholesterolemia, unspecified; K21.9 Gastro-esophageal reflux disease without esophagitis; R73.03 Prediabetes; Z79.899 Other long term (current) drug therapy; Z87.891 Personal history of nicotine dependence; Z87.442 Personal history of urinary calculi; Z88.8 Allergy status to other drugs, medicaments and biological substances; Z82.49 Family history of ischemic heart disease and other diseases of the circulatory system
CPT/HCPCS: 70450; 71046; 80048; 80053; 80061; 81003; 83036; 84484; 85025; 85027; 85347; 85730; 92978; 93005; 93306; 93458; 93571; 96361; 96365; 96375; 99285; C1725; C1753; C1874; C1887; C1894; C9600; C9601; Q9967

== ENCOUNTER 2023-11-14 18:20 | Observation (INO) | payer BC, SELFPAY ==
[2023-11-14] VITALS (13 sets, daily range): BP systolic 97–131; BP diastolic 63–90; BMI 23.7; BMI 22.9
[2023-11-14 11:37] LABS: % Basophils 0.4 % (0-2); % Eosinophils 1.9 % (0-6); % Immature Granulocytes 0.1 % (0-0.5); % Lymphocytes 17.7 % (20.5-51.1); % Monocytes 15.7 % (1.7-9.3); % Neutrophils 64.2 % (42.2-75.2); Absolute Eosinophils 0.1 10^3/uL (0-0.7); Absolute Lymphocytes 1.2 10^3/uL (1.2-3.4); Absolute Monocytes 1.1 10^3/uL (0.1-0.6); Absolute Neutrophils 4.5 10^3/uL (1.4-6.5); Hematocrit 45.2 % (39.0-52.0); Hemoglobin 15.7 g/dL (13.0-18.0); Mean Corp Hgb Conc. 34.7 g/dL (33.0-37.0); Mean Corpuscular Hgb 30.7 pg (27.0-31.0); Mean Corpuscular Volume 88.5 fL (80.0-94.0); Nucleated Red Blood Cells % 0 % (-); Platelet Count 218 10^3/uL (130-400); Red Blood Cell Count 5.11 10^6/uL (4.70-6.10); Red Cell Dist. Width 12.6 % (11.5-14.5)
--- NOTE | 2023-11-14 11:38 | ED.GENMED ---
History of Present Illness
<Mayrellen Rosen PA-C - Last Filed: 11/14/23 18:33>
General
Chief Complaint: Chest Pain
Source: patient
Exam Limitations: none
Time Seen by Provider: 11/14/23 10:56
Nursing documentation reviewed up to this point in time: agreed with
History of Present Illness
History of Present Illness:
Patient is a 63-year-old male with history CAD s/p 2 stents 3 days ago, known occlusion of LAD, hypertension, hyperlipidemia, Beyer's esophagus presenting to the emergency department with right-sided chest pressure starting this morning around
9:15 AM. Patient states that he was just sitting around this morning on 915 when he noticed a pressure in his right chest with some radiation up to his right jaw. Patient reports very mild associated shortness of breath and lightheadedness at that
time which is resolved. He did take 1 nitro at pain onset. Symptoms have somewhat improved but he still does notice pressure in his right chest.
Patient denies any diaphoresis, nausea, vomiting, severe back pain. He does state, however, that this was similar to pain he felt last prior to stent placement although less severe.
Patient has been taking all medications as prescribed upon discharge.
He is scheduled for an outpatient follow-up with Dr. Vergara to discuss possible bypass surgery in the near future for known LAD occlusion that was not stented.
Past History
<Maryellen Rosen PA-C - Last Filed: 11/14/23 18:33>
Past History
ED Past Medical History: None; Negative HTN, Hypercholesterolemia or NIDDM
ED Past Surgical History: Urological (Kidney stone)
Social History
Tobacco: Former smoker
Alcohol: None
Personal:
Living: with family
Review of Systems
<Maryellen Rosen PA-C - Last Filed: 11/14/23 18:33>
Review of Systems
Allergies reviewed?: Yes
All Other Systems: ROS reviewed and negative except as documented in HPI and ROS
Phy Exam
<Maryellen Rosen PA-C - Last Filed: 11/14/23 18:33>
Physical Exam
Physical Exam:
Vitals: Patient's vital signs are stable. Afebrile
General: Patient is well appearing, no acute distress. Nontoxic-appearing
Skin: Warm and dry, no rashes or lesions
Head: Normocephalic, atraumatic
Eyes: Sclera nonicteric. EOMs intact. No nystagmus.
Throat: Protecting airway
Neck: Normal ROM, no cervical spine tenderness, no meningismus
Cardiac: Regular rate and rhythm, no murmurs. No JVD
Pulm: Normal respiratory effort, no wheezes, rales, rhonchi heard on exam.
Abdomen: Abdomen soft. No abdominal tenderness.
Extremities: No evidence of cyanosis or edema. Bilateral upper and lower extremities with palpable and equal pulses.
Neuro: AAOx3. CN II-XII intact. No focal neurologic deficits.
Psychiatric: Normal affect.
Scores
<Maryellen Rosen PA-C - Last Filed: 11/14/23 18:33>
Heart Score for Chest Pain Patients
STEMI patient?: No
History: Moderately Suspicious
ECG: Nonspecific Repolarization
Age: >45 - <65 years
Risk Factors: >/= 3 Risk Factors or History of CAD
Troponin: >/= 3 x Normal Limit
Heart Score for Chest Pain Patients: 7
Heart Score Risk: 72.7 % MACE over next 6 weeks
<Toro Justice DO - Last Filed: 11/15/23 19:10>
Heart Score for Chest Pain Patients
Heart Score for Chest Pain Patients: 7
Heart Score Risk: 72.7 % MACE over next 6 weeks
Course
<Maryellen Rosen PA-C - Last Filed: 11/14/23 18:33>
Orders/Labs/Results
Orders:
Orders
11/14/23 10:00
ECG [Electrocardiogram (*1)] Urgent
Reason for Study: Chest Pain
EKG- Treatment ONCE
11/14/23 11:14
CMP [Comprehensive Metabolic Panel] Urgent
Complete Blood Count/With Diff Urgent
Troponin I Urgent
11/14/23 11:53
Consult Cardiology [CARDIOLOGY CONSULT] Urgent
Consulting Provider: Ivan Rodriguez
Was physician already notified: Yes
11/14/23 12:29
Morphine Sulfate 2 mg IV NOW STA
Ondansetron Injectable [Zofran] 4 mg IV NOW STA
11/14/23 14:15
Electrocardiogram (*1) Urgent
Reason for Study: Chest Pain
EKG- Treatment ONCE
11/14/23 14:35
Troponin I Urgent
11/14/23 14:41
Nitroglycerin Sublingual [Nitrostat (Sublingual)] 0.4 mg SL [id number] PRN
11/14/23 Dinner
Cholesterol Lowering
At Your Request: Full Participation
Does patient need a safe tray?: No
Cholesterol Lowering: Sodium, 2 Gram
Cholesterol Lowering
At Your Request: Full Participation
11/14/23 16:49
Troponin I Urgent
11/14/23 16:50
Electrocardiogram (*1) Urgent
Reason for Study: Chest Pain
EKG- Treatment ONCE
11/14/23 17:36
Admit/Transfer Patient As Directed
Co-Sign Provider:
Level of Care: Observation services
Assign to:: IVU
Physician / Group: Dr. Robb
Diagnosis: chest pain
11/14/23 19:31
Acetaminophen [Tylenol] 1,000 mg PO BIDPRN PRN
Enoxaparin Sodium [Lovenox] 40 mg SC QPM
Nitroglycerin Sublingual [Nitrostat (Sublingual)] 0.4 mg SL [id number] PRN
Rosuvastatin Calcium [Crestor] 40 mg PO QPM
11/14/23 19:31
Activity As Directed
Activity Level: Bathroom Privileges
With Assistance
INT (Intravenous Needle Therapy) As Directed
Comment: maintain peripheral IV access
Intake/ Output As Directed
Frequency: Per unit guidelines
Nursing to Place Non Medication Order As Directed
Physician Order: Please notify environmental health sanitarian MD if troponin level rises
Above order entered?: Yes
Vital Signs As Directed
Frequency: q4h
Weight As Directed
Frequency: Once
DX Deep Vein Thrombosis Video Routine
11/14/23 20:00
Cyanocobalamin [Vitamin B-12] 1,000 mcg PO BID
Magnesium l-Lactate [Mag-Tab Sr] 84 mg PO BID
Metoprolol [Lopressor] 25 mg PO BID
Ticagrelor [Brilinta] 90 mg PO BID
11/14/23 22:00
Electrocardiogram (*1) Q6H
Reason for Study: Chest Pain
Comment: at admission and Q3H for total of 3, to be done with each troponin
Psyllium [Metamucil, Konsyl] 1 packet PO HS
11/14/23 22:07
Troponin I Q6H
11/15/23 04:00
Electrocardiogram (*1) Q6H
Reason for Study: Chest Pain
Comment: at admission and Q3H for total of 3, to be done with each troponin
11/15/23 04:23
Basic Metabolic Panel IN AM
Complete Blood Count/No Diff IN AM
11/15/23 04:25
Troponin I Q6H
Comment: at admit & Q3H for 3 total including ED draws, obtain ECG with each level
11/15/23 Breakfast
NPO
Allow oral meds: Yes
Allow clear liquids: No
11/15/23 08:00
Aspirin Chewable [Low Strength Aspirin] 81 mg PO DAILY
Lisinopril [Zestril] 5 mg PO DAILY
rabeprazole 20 mg PO DAILY
Abnormal Lab Results
11/14/23 11/14/23 11/14/23
11:14 14:35 16:49
Absolute Monos (auto) 1.1 H 10^3/uL
(0.1-0.6)
Lymphocytes % 17.7 L %
(20.5-51.1)
Monocytes % 15.7 H %
(1.7-9.3)
BUN 25 H mg/dl
(9-20)
Glucose 101 H mg/dl
(70-99)
Troponin I 4.190 H* ng/ml 4.060 H* ng/ml 4.060 H* ng/ml
11/14/23 11:14
11/14/23 11:14
Vital Signs
Initial and Last Documented VS:
Initial Vital Signs
Temp Pulse Resp BP Pulse Ox
98.3 F 59 18 110/63 97
11/14/23 09:57 11/14/23 09:57 11/14/23 09:57 11/14/23 09:57 11/14/23 09:57
Last Documented Vital Signs
Temp Pulse Resp BP Pulse Ox
98.7 F 60 16 95/84 97
11/15/23 11:58 11/15/23 11:40 11/15/23 11:58 11/15/23 11:40 11/15/23 11:58
<Toro Justice, DO - Last Filed: 11/15/23 19:10>
Orders/Labs/Results
Orders:
Orders
11/14/23 10:00
ECG [Electrocardiogram (*1)] Urgent
Reason for Study: Chest Pain
EKG- Treatment ONCE
11/14/23 11:14
CMP [Comprehensive Metabolic Panel] Urgent
Complete Blood Count/With Diff Urgent
Troponin I Urgent
11/14/23 11:53
Consult Cardiology [CARDIOLOGY CONSULT] Urgent
Consulting Provider: Ivan Rodriguez
Was physician already notified: Yes
11/14/23 12:29
Morphine Sulfate 2 mg IV NOW STA
Ondansetron Injectable [Zofran] 4 mg IV NOW STA
11/14/23 14:15
Electrocardiogram (*1) Urgent
Reason for Study: Chest Pain
EKG- Treatment ONCE
11/14/23 14:35
Troponin I Urgent
11/14/23 14:41
Nitroglycerin Sublingual [Nitrostat (Sublingual)] 0.4 mg SL [id number] PRN
11/14/23 Dinner
Cholesterol Lowering
At Your Request: Full Participation
Does patient need a safe tray?: No
Cholesterol Lowering: Sodium, 2 Gram
Cholesterol Lowering
At Your Request: Full Participation
11/14/23 16:49
Troponin I Urgent
11/14/23 16:50
Electrocardiogram (*1) Urgent
Reason for Study: Chest Pain
EKG- Treatment ONCE
11/14/23 17:36
Admit/Transfer Patient As Directed
Co-Sign Provider:
Level of Care: Observation services
Assign to:: IVU
Physician / Group: Dr. Robb
Diagnosis: chest pain
11/14/23 19:31
Acetaminophen [Tylenol] 1,000 mg PO BIDPRN PRN
Enoxaparin Sodium [Lovenox] 40 mg SC QPM
Nitroglycerin Sublingual [Nitrostat (Sublingual)] 0.4 mg SL [id number] PRN
Rosuvastatin Calcium [Crestor] 40 mg PO QPM
11/14/23 19:31
Activity As Directed
Activity Level: Bathroom Privileges
With Assistance
INT (Intravenous Needle Therapy) As Directed
Comment: maintain peripheral IV access
Intake/ Output As Directed
Frequency: Per unit guidelines
Nursing to Place Non Medication Order As Directed
Physician Order: Please notify environmental health sanitarian MD if troponin level rises
Above order entered?: Yes
Vital Signs As Directed
Frequency: q4h
Weight As Directed
Frequency: Once
DX Deep Vein Thrombosis Video Routine
11/14/23 20:00
Cyanocobalamin [Vitamin B-12] 1,000 mcg PO BID
Magnesium l-Lactate [Mag-Tab Sr] 84 mg PO BID
Metoprolol [Lopressor] 25 mg PO BID
Ticagrelor [Brilinta] 90 mg PO BID
11/14/23 22:00
Electrocardiogram (*1) Q6H
Reason for Study: Chest Pain
Comment: at admission and Q3H for total of 3, to be done with each troponin
Psyllium [Metamucil, Konsyl] 1 packet PO HS
11/14/23 22:07
Troponin I Q6H
11/15/23 04:00
Electrocardiogram (*1) Q6H
Reason for Study: Chest Pain
Comment: at admission and Q3H for total of 3, to be done with each troponin
11/15/23 04:23
Basic Metabolic Panel IN AM
Complete Blood Count/No Diff IN AM
11/15/23 04:25
Troponin I Q6H
Comment: at admit & Q3H for 3 total including ED draws, obtain ECG with each level
11/15/23 Breakfast
NPO
Allow oral meds: Yes
Allow clear liquids: No
11/15/23 08:00
Aspirin Chewable [Low Strength Aspirin] 81 mg PO DAILY
Lisinopril [Zestril] 5 mg PO DAILY
rabeprazole 20 mg PO DAILY
Abnormal Lab Results
11/14/23 11/14/23 11/14/23
11:14 14:35 16:49
Absolute Monos (auto) 1.1 H 10^3/uL
(0.1-0.6)
Lymphocytes % 17.7 L %
(20.5-51.1)
Monocytes % 15.7 H %
(1.7-9.3)
BUN 25 H mg/dl
(9-20)
Glucose 101 H mg/dl
(70-99)
Troponin I 4.190 H* ng/ml 4.060 H* ng/ml 4.060 H* ng/ml
11/14/23 11:14
11/14/23 11:14
Vital Signs
Initial and Last Documented VS:
Initial Vital Signs
Temp Pulse Resp BP Pulse Ox
98.3 F 59 18 110/63 97
11/14/23 09:57 11/14/23 09:57 11/14/23 09:57 11/14/23 09:57 11/14/23 09:57
Last Documented Vital Signs
Temp Pulse Resp BP Pulse Ox
98.7 F 60 16 95/84 97
11/15/23 11:58 11/15/23 11:40 11/15/23 11:58 11/15/23 11:40 11/15/23 11:58
<Maryellen Rosen PA-C - Last Filed: 11/14/23 18:33>
MDM/Problems Addressed
Differential Diagnosis Includes:
Not limited to: Stable angina, unstable angina/ACS, pericarditis, myocarditis, muscle strain
MDM/Problems Addressed:
63-year-old male with history of hypertension, hyperlipidemia, CAD s/p 2 stent placements 4 days ago and known 80% occlusion of LAD presenting with right-sided chest discomfort with radiation to right jaw this morning at 9:15 AM. No significant
associated lightheadedness, dizziness, nausea, or diaphoresis. Symptoms not exertional or pleuritic in nature. Patient did take 1 nitro at home with mild resolution of pain prior to arrival.
On arrival vital signs are stable. Patient is well-appearing, in no apparent distress. Heart regular rate and rhythm, lungs clear bilaterally. Patient is perfusing well with great distal pulses equally. Initial EKG obtained in triage shows some
nonspecific ST changes although similar to prior. Labs were initiated which show no acute abnormalities. Initial troponin obtained was elevated at 4.190. Did compare to patient's most recent admission following stent placement last week where
troponin did peak at 59.1 on 11/10/23.
Case discussed with cardiology, Dr. Rodriguez. Recommended nitro and morphine for patient symptomatic chest pain. Patient's blood pressure has been soft in 100s/60s�will avoid nitro at this time. Patient was given 2 mg morphine for chest pain.
Troponin will be repeated in 3 hours and trended.
Into reassess patient�chest pain-free following morphine. Patient asymptomatic without any acute complaints.
Repeat troponin is 4.060. Mildly decreased from initial. Patient seen by Dr. Robb with interventional cardiology. Current plan for patient is bypass for LAD occlusion in a month or so. Dr. Vergara recommends 1 additional repeat troponin to
determine whether patient safe for discharge if continues to trend down versus admit for emergent cardiac catheterization.
Repeat troponin completely stable at 4.060. Patient once again seen by Dr. Vergara who recommends observation overnight to continue to trend troponins given no further decline. Patient remains asymptomatic and chest pain-free. Patient will be
admitted Dr. Garner service. Patient seen with attending physician.
Chronic conditions affecting care:
CAD, hypertension, hyperlipidemia
Acute Exacerbation and/or Progression of Chronic Illness:
CAD, elevated troponin
<Maryellen Rosen PA-C - Last Filed: 11/14/23 18:33>
*Pulse Oximetry
Patient hypoxic: no
*EKG
Interpreted by ED Provider?: Yes
EKG Intrepretation Date: 11/14/23
Interpretation: normal
Comparison EKG: no changes
Heart Rate: 54
Rate: bradycardiac
Rhythm: sinus
[place]: normal axis
Interval: normal interval
QRS Pattern: normal QRS
Ischemia: non-specific ST changes
*[employer] Interpretation
Rate: bradycardiac
Interpretation: normal
Heart Rate: 54
Rhythm: sinus
*Critical Care Note
Total Time (30-74mins, 75-104mins- exclusive of procedures): Not Applicable
Data Reviewed
Review of Other/Old Records Reveals: Labs (Troponin peaking on 11/09 at 59), Records, Operative Reports (Cardiac catheterization from 11/09 showing stent placement in OM1 and OM 2 with 80% occlusion of LAD) and Progress Notes
<Maryellen Rosen PA-C - Last Filed: 11/14/23 18:33>
Patient Management
Discussion with other providers: Call Center Agent (Dr. Robb)
Escalation/DeEscalation of care consider admission/obs:
Admit for observation and further trending of troponin
ED Attending Note
<Maryellen Rosen PA-C - Last Filed: 11/14/23 18:33>
-
Portions of this chart may have been created with voice recognition software.� Occasional wrong word or��sound alike� substitutions may have occurred due to the inherent limitations of voice recognition software.
<Toro Justice, - Last Filed: 11/15/23 19:10>
ED Attending Note
Patient seen and examined by attending physician: Yes
I performed a history and physical exam of patient and discussed management with resident, I reviewed resident's note and agree with documented findings and plan of care.: Yes
ED Attending Note:
I have reviewed and agree with history treatment plan by Magnus Nelson. My exam revealed
Physical Exam
General: no apparent distress, not acutely ill
Neck: supple. no meningeal signs. normal posterior pharynx
Heart: s1/s2 regular rate and rhythm, no murmur. equal radial
pulses.
HEENT: Pupils equal round reactive to light, EOMI
Lungs: no acute respiratory distress. clear bilaterally
Abdomen: normal bowel sounds. not tender. no CVAT
Neuro: alert and oriented. no focal neurological deficits cranial nerves II through XII intact
Skin: no rash
Psychiatric: well kept. interactive and cooperative
Extremities: no edema. no calf tenderness. negative homans. good distal pulses
Admit to Dr. Robb for further eval of chest pain, elevated troponin.
Discharge Plan
Departure
Patient Disposition: Admit
Date of Disposition: 11/14/23
Time of Disposition: 17:40
Presentation/result/management discussed w/ accepting MD/DO: Dr. Robb
Discharge Problem:
Elevated troponin, CAD (coronary artery disease)
Interventions
Interventions:
*Risk Screen - Suicide Last Done: 11/14/23 09:57
*General Assessment Last Done: 11/14/23 09:57
*Neglect/Abuse Screening Last Done: 11/14/23 09:57
ED- Fall Risk Assessment Last Done: 11/14/23 10:55
*ED COVID-19 Vaccine History Last Done: 11/14/23 10:55
*Nursing Disposition Last Done: 11/14/23 19:10
ED- Cardiac Assessment Last Done: 11/14/23 10:55
Discharge Date and Time
Discharge Date/Time: 11/14/23 19:10
[2023-11-14 12:00] LABS: ALT (SGPT) 25 U/L (0-50); AST (SGOT) 33 U/L (17-59); Albumin 4.2 g/dl (3.5-5.0); Alkaline Phosphatase 50 U/L (38-126); Blood Urea Nitrogen 25 mg/dl (9-20); Calcium 8.8 mg/dl (8.4-10.2); Carbon Dioxide 25 mmol/L (22-30); Chloride 102 mmol/L (98-107); Estimated Creatinine Clearance 77 ml/min; Glucose 101 mg/dl (70-99); Potassium 4.3 mmol/L (3.5-5.1); Sodium 135 mmol/L (135-145); Total Bilirubin 0.7 mg/dl (0.2-1.3); Total Protein 6.5 g/dl (6.3-8.2); eGFR > 60.00
[2023-11-14] MEDS: ZOFRAN 4 MG IV (12:34)
[2023-11-14] MEDS: MORPHINE SULFATE 2 MG IV (12:35)
--- NOTE | 2023-11-14 16:33 | CON.CAR ---
Addendum entered and electronically signed by Delano Robb DO 11/14/23 17:50:
Repeat troponin 4.060 (exactly the same).
We will admit for overnight observation.
Check troponin q6h.
If troponin rises significantly, we will restart heparin gtt.
Original Note:
Documented by User: CHARLES Nails 11/14/23 16:39
Consultation
Consultation Request
Date/Time Consultation Requested: 11/14/23 1153
Date/Time Consultation Performed: 11/14/23 1300
Requesting Provider: Maryellen MITCHELL
Performing Provider: Breanne SOTO for Dr. Robb
Reason for Consultation: chest pain
Medical History
-
Chief Complaint: chest pain
History of Present Illness:
63 y/o male with dyslipidemia, GERD, preDM, and CAD with recent NSTEMI and stenting (s/p PCI to OM2 and OM1) with residual LAD disease (80%) with plans to discuss management as OP (percutaneous versus surgery). However, this AM around 9 AM at rest,
he developed right-sided chest pressure with radiation to neck, and he felt a little SOB. It was not as bad as his [facility] presentation, but felt a little similar overall. He is CP free at the time of my assessment s/p IV morphine. Nitro not given due to
BP's borderline, but BP is fine currently. He took one nitro at home and is not sure if it helped.
Past Medical History
Past Medical History: CAD, GERD and Hypercholesterolemia
Social History
Tobacco: Former Smoker
Family History
Family History: CAD (mom)
Allergies / Home Medications
Allergy/AdvReac Type Severity Reaction Status Date / Time
amoxicillin Allergy Shortness Verified 11/14/23 09:57
of Breath
codeine Allergy Nausea Verified 11/14/23 09:57
�Medication �Instructions �Recorded �Confirmed �Type
acetaminophen 500 mg tablet 1,000 mg PO BIDPRN PRN mild pain 04/25/23 11/14/23 History
(Tylenol Extra Strength)
magnesium 200 mg tablet 400 mg PO BID 04/25/23 11/14/23 History
psyllium husk 3.4 gram/5.4 gram 1 tsp PO HS 04/25/23 11/14/23 History
oral powder (Metamucil)
cyanocobalamin (vitamin B-12) 1,000 mcg PO BID 11/10/23 11/14/23 History
1,000 mcg tablet
rabeprazole 20 mg tablet,delayed 20 mg PO DAILY 11/10/23 11/14/23 History
release
aspirin 81 mg chewable tablet 81 mg PO DAILY #30 tabs 11/11/23 11/14/23 Rx
lisinopril 5 mg tablet 5 mg PO DAILY #90 tabs 11/11/23 11/14/23 Rx
metoprolol tartrate 25 mg tablet 25 mg PO BID #180 tabs 11/11/23 11/14/23 Rx
nitroglycerin 0.4 mg sublingual 0.4 mg sublingual [id number] PRN 11/11/23 11/14/23 Rx
tablet chest pain #25 tabs
rosuvastatin 40 mg tablet 40 mg PO QPM #90 tabs 11/11/23 11/14/23 Rx
ticagrelor 90 mg tablet (Brilinta) 90 mg PO BID #60 tabs 11/11/23 11/14/23 Rx
Review of Systems
-
History Source: Patient
All other systems: Negative unless noted
Respiratory: Trouble Breathing
Cardiac: Chest Pain
Physical Exam
Vital Signs
Temp Pulse Resp BP Pulse Ox
98.3 F 48 21 110/68 98
11/14/23 09:57 11/14/23 15:00 11/14/23 15:00 11/14/23 15:00 11/14/23 14:00
Lab Results
11/14/23 11:14
11/14/23 11:14
Troponin I 4.060 ng/ml H* 11/14/23 14:35
Physical Exam
General: Well Developed, Well Nourished and No Apparent Distress
HEENT: Normocephalic and Anicteric
Respiratory: Clear and Non Labored Respirations
Cardiac: Regular Rhythm (SB/SR)
Musculoskeletal: No Edema
Skin: Warm and Dry
Neuro: AO x 3
Psych: Calm
Impression / Plan
-
Chest pain: resolved
-give nitro if needed
-recent ACS with peak troponin 59
-trop here 4. Check another troponin. Will discuss case with Dr. Robb.
-EKG is stable
CAD with recent stenting (OM1, OM2), residual 80% LAD disease:
-Continue ASA, Brilinta- he took this AM
-continue metoprolol, lisinopril, and statin
Dyslipidemia:
-continue Crestor
Pre-DM:
-diet control
-monitor over time with PCP
GERD:
-on PPI
Data Reviewed
-
EKG: Tracing Personally Visualized and interpreted (SB 54 BPM)
Medical Tests (Nuc Med, Echo etc): Report Reviewed by me (echo 11/11/23: 60-65% by Patel's method of discs. Normal diastolic function. Normal right ventricular size and function. No significant valvular disease.)
Labs: Labs Reviewed by me

Documented by User: Delano Robb, DO 11/14/23 17:35
Impression / Plan
-
Chest pain: resolved
-give nitro if needed
-recent ACS with peak troponin 59
-trop here 4. Check another troponin. Will discuss case with Dr. Robb.
-EKG is stable
CAD with recent stenting (OM1, OM2), residual 80% LAD disease:
-Continue ASA, Brilinta- he took this AM
-continue metoprolol, lisinopril, and statin
Dyslipidemia:
-continue Crestor
Pre-DM:
-diet control
-monitor over time with PCP
GERD:
-on PPI
Attestation: I have seen and examined the patient. I can confirm Ms. Shields's findings and I agree with her assessment and plan as documented.
63-year-old gentleman with a history of GERD/Beyer's esophagus and coronary artery disease/NSTEMI presenting with atypical, right-sided chest pain/pressure. Past medical history is notable for hyperlipidemia with statin intolerance and recent
non-ST elevation myocardial infarction treated with PCI to the obtuse marginal tree. The patient had a residual 80% proximal LAD lesion which was deferred at that time for staged PCI versus MIDCAB. This morning, the patient was in his normal state
of health when he began experiencing right-sided chest discomfort with a slight pain along the right rib cage radiating up into his right neck. This was different than the pain that brought him in for his non-ST elevation myocardial infarction. He
has been faithful with taking his medications. Because of his recent cardiac issues, he decided to present to [facility] emergency room. Initial EKG is unchanged from discharge EKG. His initial troponin is 4.190, then trending down to
4.060 over 3 hours. Recall that peak troponin for the NSTEMI was 59.1 on 11/10/2023, thus a troponin around 4 and falling would be appropriate given the time course of his cardiac consult.
The patient has been chest pain-free since his arrival at [facility].
His exam is benign.
Aside from his elevated troponin, his there are no other significant abnormal lab findings.
As noted, his EKG is unchanged from discharge EKG. There is very mild T wave inversion in the high lateral limb leads. This was present at his discharge.
The patient has atypical chest discomfort and has not been experiencing any exertional pain.
His pain is different from his prior presentation and he does carry a diagnosis of GERD/Beyer's esophagus.
Review of his coronary angiography shows that his proximal LAD lesion, while significant, did not appear unstable and it would be unlikely that a lesion of that caliber would be electrocardiographically silent.
He was previously discussed for proximal LAD PCI versus MIDCAB given his borderline diabetes and relatively young age.
We will cycle 1 more troponin. If his troponin continues to trend down, he may be discharged for outpatient follow-up including a referral to CT surgery for consideration of single-vessel bypass.
If his troponin elevates, we will admit him for overnight observation and likely staged PCI of the LAD tomorrow.
Continue aggressive secondary prevention measures.
Data Reviewed
-
Radiology: Report Reviewed by me
Medical Tests (Nuc Med, Echo etc): Image Personally Visualized and interpreted
Labs: Discussed with Physician and Discussed with Nurse
--- NOTE | 2023-11-14 17:49 | W.PN.UPDATE ---
Update Note
Progress Note Update
Patient trop is unchanged. Discussed with Dr. Robb and will admit patient for observation. Follow trops overnight- if they go up start heparin, but currently will hold off. Will make NPO after MN, then reassess plan in AM. Dr. Robb to discuss
with patient.
[2023-11-14] MEDS: MAG-TAB SR 84 MG PO (20:02)
[2023-11-14] MEDS: BRILINTA 90 MG PO (20:02)
[2023-11-14] MEDS: LOVENOX 40 MG SC (20:02)
[2023-11-14] MEDS: LOPRESSOR 25 MG PO (20:02)
[2023-11-14] MEDS: VITAMIN B-12 PO (20:03)
[2023-11-14] MEDS: CRESTOR 40 MG PO (20:11)
--- NOTE | 2023-11-14 20:15 | PTCARENOTE ---
Pt admitted to room 2250. Pt AAOx3. Denies pain or discomfort. Able to ambulate without help. Oriented to room. All safety measures in place
[2023-11-14] MEDS: METAMUCIL, KONSYL 1 PACKET PO (22:11)
[2023-11-15 04:01] VITALS: BP 102/61
[2023-11-15 04:37] LABS: Hematocrit 41.5 % (39.0-52.0); Hemoglobin 14.8 g/dL (13.0-18.0); Mean Corp Hgb Conc. 35.7 g/dL (33.0-37.0); Mean Corpuscular Volume 84.2 fL (80.0-94.0); Mean Platelet Volume 8.6 fL (7.4-10.4); Platelet Count 208 10^3/uL (130-400); Red Blood Cell Count 4.93 10^6/uL (4.70-6.10); Red Cell Dist. Width 12.7 % (11.5-14.5); White Blood Cell Count 6.4 10^3/uL (4.8-10.8)
[2023-11-15 05:05] LABS: Blood Urea Nitrogen 25 mg/dl (9-20); Calcium 9.1 mg/dl (8.4-10.2); Carbon Dioxide 24 mmol/L (22-30); Chloride 104 mmol/L (98-107); Estimated Creatinine Clearance 76 ml/min; Glucose 93 mg/dl (70-99); Potassium 4.6 mmol/L (3.5-5.1); Sodium 136 mmol/L (135-145); eGFR > 60.00
[2023-11-15 07:41] VITALS: BP 105/79
[2023-11-15] MEDS: LOPRESSOR 25 MG PO (08:29)
[2023-11-15] MEDS: BRILINTA 90 MG PO (08:29)
[2023-11-15] MEDS: MAG-TAB SR 84 MG PO (08:30)
[2023-11-15] MEDS: ZESTRIL 5 MG PO (08:30)
[2023-11-15] MEDS: VITAMIN B-12 1000 MCG PO (08:30)
[2023-11-15] MEDS: LOW STRENGTH ASPIRIN 81 MG PO (08:30)
--- NOTE | 2023-11-15 09:12 | W.PN.CD ---
Today's Communication / Plan
-
discharge on current regimen, follow up with Dr. Robb nd Dr. Fink
Impression / Plan
-
63M with HLD, pre-DM, Beyer's esophagus, and recent NSTEMI s/p PCIx2 to LCx with unrevascularized 80% proximal LAD, who presented with recurrent chest pain.
Chest pain: resolved
-notes pain was less severe and of different quality than index presentation
-recent NSTEMI with peak troponin 59, continued to downtrend 4-->3 on this admission
-EKG is stable from prior discharge
-will discharge today on same medical regimen with plan to follow up with Dr. Robb and Dr. Fink for consideration of robotic HAWKINS-LAD
CAD with recent stenting (OM1, OM2), residual 80% LAD disease:
-Continue ASA, Brilinta
-continue metoprolol, lisinopril, and statin
Dyslipidemia:
-continue Crestor
Pre-DM:
-diet control
-monitor over time with PCP
GERD:
-on PPI
Physical Exam
Vital Signs/Labs
Vital Signs
Temp Pulse Resp BP Pulse Ox
36.7 C 54 18 102/61 97
11/15/23 07:47 11/15/23 04:01 11/15/23 07:47 11/15/23 04:01 11/15/23 07:47
11/14/23 11/15/23 11/16/23
06:59 06:59 06:59
Actual Weight 76.6 kg
11/15/23 04:23
11/15/23 04:23
LAB Results
11/14/23 11/14/23 11/14/23
11:14 14:35 16:49
Troponin I 4.190 H* 4.060 H* 4.060 H*
08/19/24 08/20/24
22:07 04:25
Troponin I 3.590 H* 3.150 H*
Physical Exam
Constitutional: No acute distress
Cardiovascular: Rhythm & rate is regular
Respiratory: Respiratory effort normal
Neuro/Psych: Alert, Oriented and AO x 3
Data Reviewed
-
Date of Service: November 15, 2023
Medical Decision Making: Reviewed Test Results
EKG: Tracing Personally Visualized and interpreted
Labs: Labs Reviewed by me
--- NOTE | 2023-11-15 09:17 | PTCARENOTE ---
Received pt from care management specialist RN; pt AAOx3 and resting comfortably in bed; Sinus Jeff on monitor and VSS; lungs clear; positive bowel sounds and pt voiding clear yellow urine; no edema noted; palpable pulse throughout; see nursing documentation for
further details.
--- NOTE | 2023-11-15 09:28 | W.DS.TRANS ---
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
-
Discharge Instructions:
Discharge Diagnosis/Procedures Chest pain
Diet Diabetic, Carb Controlled,Low Cholesterol
Activity No strenuous activity
Additional Activity Continue post-procedure activity restrictions.
No heavy lifting >10lbs, strenuous activity or
sexual intimacy until seen by Dr. Robb and/or
cardiac surgeon.
Driving Restrictions As prior to admission
Bathing Restrictions OK to Shower
Instructions:
Stand-Alone Forms:
Changes to Home Medications: No
Discharge Medications:
DC Medications w/original date entered in [employer]
acetaminophen 500 mg tablet (Tylenol Extra Strength) 1,000 mg PO BIDPRN PRN mild pain 04/25/23
magnesium 200 mg tablet 400 mg PO BID 04/25/23
psyllium husk 3.4 gram/5.4 gram oral powder (Metamucil) 1 tsp PO HS 04/25/23
cyanocobalamin (vitamin B-12) 1,000 mcg tablet 1,000 mcg PO BID 11/10/23
rabeprazole 20 mg tablet,delayed release 20 mg PO DAILY 11/10/23
aspirin 81 mg chewable tablet 81 mg PO DAILY #30 tabs 11/11/23
lisinopril 5 mg tablet 5 mg PO DAILY #90 tabs 11/11/23
metoprolol tartrate 25 mg tablet 25 mg PO BID #180 tabs 11/11/23
nitroglycerin 0.4 mg sublingual tablet 0.4 mg sublingual [id number] PRN chest pain #25 tabs 11/11/23
rosuvastatin 40 mg tablet 40 mg PO QPM #90 tabs 11/11/23
ticagrelor 90 mg tablet (Brilinta) 90 mg PO BID #60 tabs 11/11/23
Home Medication Changes
Pending Results: No
--- NOTE | 2023-11-15 09:38 | CM ---
Reviewed chart. Met with Mr. Nelson to review discharge plans. He states prior to admission he resides with his spouse in a two story home without any steps to enter. He states he has a full flight of steps to get to bedroom/full bathroom. He
states he a powder room on the first floor. He states prior to admission he was independent with ambulation and adls. He states he does not have any DME in the home. He states he has a prescription plan and uses [facility]. The discharge
plan is to return home with his spouse when medically stable.
[2023-11-15 11:40] VITALS: BP 95/84
== END 2023-11-15 13:00 | disposition home or self-care (01) ==
LOC: IVU 18:20
PROVIDERS: Nurse Practitioner; Physician Assistant; ADMITTING PHYSICIAN Internal Medicine Cardiovascular Disease; EMERGENCY PHYSICIAN Emergency Medicine; FAMILY PHYSICIAN Registered Nurse
DX: R07.89 Other chest pain (principal); I25.10 Atherosclerotic heart disease of native coronary artery without angina pectoris; I21.4 Non-ST elevation (NSTEMI) myocardial infarction; I10 Essential (primary) hypertension; E11.9 Type 2 diabetes mellitus without complications; K21.9 Gastro-esophageal reflux disease without esophagitis; E78.00 Pure hypercholesterolemia, unspecified; I25.2 Old myocardial infarction; Z87.442 Personal history of urinary calculi; Z87.891 Personal history of nicotine dependence; Z95.5 Presence of coronary angioplasty implant and graft; Z87.19 Personal history of other diseases of the digestive system; Z82.49 Family history of ischemic heart disease and other diseases of the circulatory system; Z88.5 Allergy status to narcotic agent; Z88.0 Allergy status to penicillin; Z79.82 Long term (current) use of aspirin; Z79.02 Long term (current) use of antithrombotics/antiplatelets
CPT/HCPCS: 80048; 80053; 84484; 85025; 85027; 93005; 96374; 96375; 99285; G0378

== ENCOUNTER → 2023-12-19 07:29 | Outpatient (REF) | payer BC, SELFPAY | LOC: RAD 07:29 | PROVIDERS: ATTENDING PHYSICIAN Registered Nurse | DX: R31.0 Gross hematuria (principal); R04.2 Hemoptysis | CPT/HCPCS: 71270; 76770; Q9967 ==

== ENCOUNTER 2023-12-20 07:34 | Inpatient (IN) | payer BC, SELFPAY ==
[2023-12-14 12:12] VITALS: BMI 23.3
--- NOTE | 2023-12-14 13:21 | CM ---
Addendum entered by Damaris Ansari RN 12/14/23 13:24:
Confirmed patient is going for CT Scan 12/18 at .
Original Note:
Chart reviewed. Met with the patient in PAT. Patient is independent of ADLS, lives with his in a 2 STH, 0 MARIAJOSE, 0 DME. 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 Reviewed preoperative and postoperative instructions and restrictions,
along with showering guidelines. Gave patient 2 soaps. Patient is agreeable to a home visit by CT Transitional RN. Plan is for the patient to return home with CT Transitional RN.
[2023-12-14 14:27] LABS: Urine Albumin Negative (Neg - Trace); Urine Bilirubin Negative (Negative); Urine Character Clear (Clear); Urine Color Yellow; Urine Glucose Negative (Negative); Urine Ketone Negative (Negative); Urine Leukocyte Negative (Negative); Urine Nitrite Negative (Negative); Urine Occult Blood Negative (Negative); Urine Urobilinogen Negative (Neg - 1+); Urine pH 6.5 (5.0-9.0)
[2023-12-14 14:32] LABS: % Basophils 0.8 % (0-2); % Immature Granulocytes 0.3 % (0-0.5); % Lymphocytes 23.7 % (20.5-51.1); % Monocytes 12.1 % (1.7-9.3); % Neutrophils 58.1 % (42.2-75.2); Absolute Basophils 0.1 10^3/uL (0-0.2); Absolute Eosinophils 0.3 10^3/uL (0-0.7); Absolute Lymphocytes 1.5 10^3/uL (1.2-3.4); Absolute Monocytes 0.8 10^3/uL (0.1-0.6); Absolute Neutrophils 3.8 10^3/uL (1.4-6.5); Hematocrit 44.4 % (39.0-52.0); Hemoglobin 15.2 g/dL (13.0-18.0); Mean Corp Hgb Conc. 34.2 g/dL (33.0-37.0); Mean Corpuscular Hgb 29.9 pg (27.0-31.0); Mean Corpuscular Volume 87.2 fL (80.0-94.0); Mean Platelet Volume 9.1 fL (7.4-10.4); Nucleated Red Blood Cells % 0 % (-); Platelet Count 194 10^3/uL (130-400); Red Blood Cell Count 5.09 10^6/uL (4.70-6.10); Red Cell Dist. Width 12.6 % (11.5-14.5); White Blood Cell Count 6.5 10^3/uL (4.8-10.8)
[2023-12-14 14:41] LABS: PT 13.2 Sec (11.4-14.6)
[2023-12-14 14:42] LABS: APTT 30.8 Sec (23.4-35.0)
[2023-12-14 15:46] LABS: ALT (SGPT) 34 U/L (0-50); AST (SGOT) 31 U/L (17-59); Albumin 4.7 g/dl (3.5-5.0); Alkaline Phosphatase 56 U/L (38-126); Blood Urea Nitrogen 20 mg/dl (9-20); Calcium 9.3 mg/dl (8.4-10.2); Carbon Dioxide 27 mmol/L (22-30); Chloride 100 mmol/L (98-107); Direct Bilirubin 0.2 mg/dl (0.0-0.4); Estimated Creatinine Clearance 85 ml/min; Glucose 85 mg/dl (70-99); Potassium 4.4 mmol/L (3.5-5.1); Sodium 142 mmol/L (135-145); Total Bilirubin 0.7 mg/dl (0.2-1.3); Total Protein 6.7 g/dl (6.3-8.2); eGFR > 60.00
[2023-12-20] VITALS (16 sets, daily range): BP systolic 89–135; BP diastolic 49–76; PULSE 2–46
--- NOTE | 2023-12-20 08:00 | PTCARENOTE ---
Pt admitted to CVICU 2264 as SDA. Pt reports being NPO since midnight, and having taken 2 CHG showers. Admission history completed and home medication list reviewed. Pt clipped and prepped per guidelines. CHG wipe bath completed. ABO2 obtained. Call
clarke within reach. Pt's went home, contact information in chart.
[2023-12-20] MEDS: LOPRESSOR 25 MG PO (10:28)
[2023-12-20] MEDS: BACTROBAN 2% OINTMENT 1 APPLIC NASAL ×2 (10:28→20:31)
[2023-12-20] MEDS: NON-FORMULARY ITEM 20 MG PO (10:29)
[2023-12-20] MEDS: MAGNESIUM OXIDE 500 MG PO (10:29)
--- NOTE | 2023-12-20 11:30 | CM ---
Chart reviewed. Patient is in the OR today. Patient is independent of ADLS, lives with his in a 2 STH, 0 MARIAJOSE, 0 DME. Plan is for the patient to return home with CT Transitional RN. CM to follow
[2023-12-20 12:03] LABS: ACT+ - POC 104 Seconds (82-134)
[2023-12-20 12:42] LABS: Urine Albumin Negative (Neg - Trace); Urine Bilirubin Negative (Negative); Urine Character Clear (Clear); Urine Color Yellow; Urine Glucose Negative (Negative); Urine Ketone Negative (Negative); Urine Leukocyte Negative (Negative); Urine Nitrite Negative (Negative); Urine Occult Blood 4+ (Negative); Urine Urobilinogen Negative (Neg - 1+)
[2023-12-20 13:12] LABS: Urine Bacteria Few (Negative); Urine Mucus Few; Urine Red Blood Cell 26-30 /HPF (0-2); Urine White Cell 0-2 /HPF (0-5)
[2023-12-20 13:58] LABS: B.E. - POC 0.1 mmol/L; Glucose - POC 102 mg/dl (70-99); HCO3 - POC 25 mmol/L (21-29); Hematocrit - POC 41 % PCV (42-52); Hemodilution- POC Yes; Hemoglobin Calculated - POC 13.9; Ionized Calcium - POC 1.15 mmol/L (1.12-1.27); PCO2 - POC 39 mmHg (35-45); PO2 - POC 406 mmHg (80-100); POC Comment PRE; Potassium - POC 3.7 mmol/L (3.6-5.0); Sodium - POC 141 mmol/L (135-145); pH - POC 7.41 (7.35-7.45)
[2023-12-20 14:08] LABS: ACT+ - POC 520 Seconds (82-134)
--- NOTE | 2023-12-20 14:55 | CON.INTV ---
Consultation
Consultation Request
Date/Time Consultation Requested: 12/20/2023 - 1559
Date/Time Consultation Performed: 12/20/2023 - 1428
Requesting Provider: Padmini Jaffe PA-C
Performing Provider: Ok Cardoso MD
Reason for Consultation: s/p MIDCAB
Medical History
-
Chief Complaint: Elective MIDCAB
History of Present Illness:
63-year-old male former tobacco smoker (quit in 1979) with a past medical history of hepatitis A, hyperlipidemia, IFG, BPH, Beyer's esophagus, hiatal hernia, GERD and CAD with history of NSTEMI (October 2023 - ROCIO to OM1 and OM2) who presents with
elective MIDCAB. Patient known to cardiothoracic service with last visit on 12/07/[address] Fink. Patient had an NSTEMI in October 2023 with LHC performed on 11/10/2023 showing two-vessel obstructive coronary disease requiring IVUS guided PCI to
the OM 2+ OM1 with placement of ROCIO to each vessel. Patient had mildly elevated filling pressures with LVEDP of 20 mmHg. Since the cath, patient has been feeling well except had an episode of right-sided dull chest pain that subsided with rest.
Last echo on 11/11/2023 showed LVEF preserved at 60-65% with normal RV size and function with mild pulmonary hypertension with PASP 25 mmHg assuming an RAP of 3 mmHg. There was no significant valvular disease either. Surgical intervention with
robotic assisted MIDCAB with HAWKINS to LAD bypass was discussed including its risks and benefits. Today he underwent robotic assisted MIDCAB with robotic assisted harvest of internal mammary artery with anterolateral minithoracotomy for CABG.
Patient tolerated the procedure well with no immediate complications and was transferred to the CVICU postoperatively. Pulmonary Physical Therapist services consulted for additional management/recommendations.
When I saw the patient he was resting in bed. He was already extubated in the OR. He was currently on BiPAP 10/5 bled with 8 L/min, with TVe of 360 mL. Heart rate 68, BP via A-line (right radial) of 106/52, SpO2 96% and BP via NIBP: 94/55. He is
currently on insulin drip at 2.3 units/hr. Left pleural chest tube in place. He is still slightly sedated from his procedure and also had mild hypercapnia (pCO2 58). He otherwise denies chest pain, FRANKS, abdominal pain, nausea, fevers or chills.
PMHx: Headaches, history of hepatitis A, seasonal allergies, hyperlipidemia, impaired fasting glucose, BPH, Beyer's esophagus, hiatal hernia, CAD s/p stents x 2, prediabetes, GERD, dyslipidemia
PSHx: Kidney stone, coronary stent x 2 (October 2023)
Past Medical History
Past Medical History: Other (Above as per HPI)
Past Surgical History: Other (Above as per HPI)
Social History
Tobacco: Former Smoker (Quit smoking in 1979)
Alcohol: None
Drug: None
Personal:
Living: With Family
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
Family History
Family History: CAD (Mother), Cancer (Father: Prostate cancer + bladder cancer; mother: Adrenal gland cancer), Hypertension (Mother) and Other (Mother: Thyroid disease)
Allergies / Home Medications
Allergies
Allergy/AdvReac Type Severity Reaction Status Date / Time
atorvastatin Allergy Mild Leg pain Verified 12/20/23 08:11
amoxicillin Allergy Shortness Verified 12/09/23 10:05
of Breath
codeine AdvReac Nausea, Verified 12/09/23 10:05
anxiety
Home Medications
�Medication �Instructions �Recorded �Confirmed �Last Taken �Type
acetaminophen 500 mg tablet 500 mg PO BIDPRN PRN mild pain 04/25/23 12/20/23 12/18/23 History
(Tylenol Extra Strength)
psyllium husk 3.4 gram/5.4 gram 1 tsp PO HS 04/25/23 12/20/23 12/12/23 22:15 History
oral powder (Metamucil)
rabeprazole 20 mg tablet,delayed 20 mg PO DAILY 08/12/20/23 12/19/23 08:00 History
release
aspirin 81 mg chewable tablet 81 mg PO DAILY #30 tabs 11/11/23 12/20/23 12/19/23 08:00 Rx
lisinopril 5 mg tablet 5 mg PO DAILY #90 tabs 11/11/23 12/20/23 12/17/23 08:17 Rx
metoprolol tartrate 25 mg tablet 25 mg PO BID #180 tabs 11/11/23 12/20/23 12/19/23 20:00 Rx
nitroglycerin 0.4 mg sublingual 0.4 mg sublingual [id number] PRN 11/11/23 12/20/23 11/14/23 Rx
tablet chest pain #25 tabs
rosuvastatin 40 mg tablet 40 mg PO QPM #90 tabs 11/11/23 12/20/23 12/19/23 20:00 Rx
ticagrelor 90 mg tablet (Brilinta) 90 mg PO BID #60 tabs 11/11/23 12/20/23 12/14/23 20:00 Rx
cyanocobalamin (vitamin B-12) 500 500 mcg PO BID 12/09/23 12/20/23 12/12/23 14:00 History
mcg tablet (Vitamin B-12)
magnesium glycinate 210 mg PO BID 12/09/23 12/20/23 12/19/23 16:00 History
Lactobacillus acidophilus 10 10,000 mmu cells PO DAILY 12/20/23 12/20/23 12/12/23 08:00 History
billion cell capsule (Probiotic)
Review of Systems
-
History Source: Patient
All other systems: Negative unless noted
Vitals / Labs / Diagnostic Testing
Vital Signs
Temp Pulse Resp BP Pulse Ox
97.1 F 67 27 124/76 96
12/20/23 16:00 12/20/23 16:00 12/20/23 16:00 12/20/23 10:28 12/20/23 16:00
Lab Data
12/20/23 16:13
Laboratory Results
12/20/23 12/20/23
16:12 16:13
PT 16.4 H
INR 1.34
APTT 32.9
pH 7.25 L
pCO2 58 H
pO2 87
HCO3 25.4
O2 Delivery Level
Diagnostic Testing:
Physical Exam
-
HEENT: Normocephalic and Anicteric
Cardiovascular: S1/S2 and Peripheral Edema (negative)
Respiratory: Wheeze (negative), Rales (negative), Rhonchi (negative), Non-Labored Respirations and Other (On BiPAP with full face mask)
GI: Soft, Non Distended, Non Tender and Normal Bowel Sounds
Neurology: Other (Lethargic but easily arousable and answering questions appropriately)
Skin: Warm and Dry
General: Respiratory Distress (negative), Comfortable, Chills (negative) and Sweats (negative)
Assessment
-
Assessment: 63-year-old male former tobacco smoker (quit in 1979) with a past medical history of hepatitis A, hyperlipidemia, IFG, BPH, Beyer's esophagus, hiatal hernia, GERD and CAD with history of NSTEMI (October 2023 - ROCIO to OM1 and OM2) who
presents with elective MIDCAB. Patient known to cardiothoracic service with last visit on 12/07/[address] Fink. Patient had an NSTEMI in October 2023 with LHC performed on 11/10/2023 showing two-vessel obstructive coronary disease requiring IVUS
guided PCI to the OM 2+ OM1 with placement of ROCIO to each vessel. Patient had mildly elevated filling pressures with LVEDP of 20 mmHg. Since the cath, patient has been feeling well except had an episode of right-sided dull chest pain that subsided
with rest. Last echo on 11/11/2023 showed LVEF preserved at 60-65% with normal RV size and function with mild pulmonary hypertension with PASP 25 mmHg assuming an RAP of 3 mmHg. There was no significant valvular disease either. Surgical
intervention with robotic assisted MIDCAB with HAWKINS to LAD bypass was discussed including its risks and benefits. On 12/20/2023, the pt underwent robotic assisted MIDCAB with robotic assisted harvest of internal mammary artery with anterolateral
minithoracotomy for CABG. Patient tolerated the procedure well with no immediate complications and was transferred to the CVICU postoperatively. Pulmonary Physical Therapist services consulted for additional management/recommendations.
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
Impression:
#CAD with proximal LAD involvement with recent NSTEMI requiring PCI + LCx stenting s/p robotic assisted MIDCAB (POD #0)
#Acute respiratory failure with hypercapnia now on BiPAP
#Personal history COVID-19 (diagnosed in February 2020)
#Former tobacco smoker (quit in 1979)
#Impaired fasting glucose/prediabetes (HbA1C: 6 on 12/14/2023)
#BPH
#CAD with history of NSTEMI s/p ROCIO x 2 to OM1 + OM2 (10/2023)
Plan:
Patient already extubated to BiPAP in the OR and is currently tolerating PAP with appropriate exhale tidal volume
Trend blood gas to assure pCO2 + pH are improving
Keep SpO2 >90-94%
If hypercapnia still persists despite being on BiPAP then would continue with BiPAP with sleep
prn nebulized bronchodilators � patient currently not bronchospastic
Pulmonary artery catheter parameters will be followed
Pressors/antihypertensive/inotropes/diuretics will be provided as needed
Maintain MAP>65
Replete electrolytes with K>4, Mg>2
Monitor chest tube output (left pleural chest tube X1)
Monitor hemoglobin
Monitor platelet count and coags
Transfuse blood products as needed to maintain Hb>7g/dL, plt>50k (given post-operative status)
CT surgery managing chest tubes
Monitor blood sugar to maintain euglycemia with goal BG 140-180
Insulin drip per protocol
Aspiration precautions
DVT prophylaxis
Early nutrition
Early mobilization
Critical care statement: A total of 41 minutes of critical care time was provided for this patient today. This includes management of ventilator, spontaneous breathing trial, arterial blood gases, pressors, of unstable vital signs, evaluation of the
patient at bedside, reviewing the patient's pertinent medical records including radiographs, microbiology, laboratory evaluations, and discussion with primary team and critical care nursing.
Data:
CXR 12/20/2023: Right apical and perihilar patchy opacities, likely atelectasis in the setting of recent surgery. No visible pneumothorax.
[2023-12-20 14:59] LABS: B.E. - POC -2.3 mmol/L; Glucose - POC 170 mg/dl (70-99); HCO3 - POC 24 mmol/L (21-29); Hematocrit - POC 43 % PCV (42-52); Hemodilution- POC Yes; Hemoglobin Calculated - POC 14.7; Ionized Calcium - POC 1.09 mmol/L (1.12-1.27); O2 Saturation %Calculated-POC 99.8 5 (92-96); PCO2 - POC 48 mmHg (35-45); PO2 - POC 251 mmHg (80-100); POC Comment ABG; Potassium - POC 4.3 mmol/L (3.6-5.0); Sodium - POC 141 mmol/L (135-145); pH - POC 7.31 (7.35-7.45)
[2023-12-20 15:04] LABS: ACT+ - POC 93 Seconds (82-134)
--- NOTE | 2023-12-20 15:26 | W.PN.CT.SURG ---
CT Surgery Operative Note
-
CARDIAC SURGERY OPERATIVE REPORT
Preoperative Diagnosis: Coronary Artery Disease with proximal LAD involvement and recent NSTEMI requiring PCI and stenting to circumflex
Postoperative Diagnosis: Same
Procedure(s) Performed:
1. Robotic assisted MIDCAB (single-vessel bypass HAWKINS in situ to LAD)
2. Robotic assisted harvest of internal mammary artery with anterolateral mini thoracotomy for CABG
3. Transesophageal echocardiography
4. Transonic Flowprobe assessment of HAWKINS graft
Date of Surgery: 12/20/2023
Comorbidities:
1. Residual coronary artery disease involving the proximal LAD
2. Recent NM requiring urgent stenting to both OM's
3. Hepatitis A [remote]
4. Hyperlipidemia
5. Beyer's esophagus
6. Hiatal hernia
7. Prediabetes
8. Hyperlipidemia
9. GERD
Attending Surgeon: Anthony Fink MD, MS
Assistants: Padmini Jaffe PA-C (present and necessary to workforce development assistant, exchanging robotic instruments, retraction, suction, exposure, suture management, and wound closure under my direction)
Anesthesiology: Jacob Rosen MD and Otoniel Gutiérrez CRNA
Scrub and Circulating RNs: Erin Yu RN, Gege Sanchez RN
Practice Architect: Kaity Hoffmann CCP
Anesthesia: GETA
EBL: per perfusion records
Products: None
Indication(s) for Procedures: This is a 63-year-old male who back in October had an NSTEMI requiring IVUS guided PCI stenting of OM1 and OM 2. He is also found to have residual proximal LAD disease and so was referred for HAWKINS to LAD grafting. The
STS risk was discussed with the patient in the office and the shared decision making was to pursue a single-vessel bypass using his mammary artery to his LAD via a mini invasive approach.
Conduit(s) Quality/Internal Diameter:
HAWKINS -good size, excellent conduit, flow probe analysis, mean flow of 31 cc/min, PI of 2.7
Target(s) Quality/Internal Diameter:
LAD -good sized target, easily accommodated a 2.0 mm shunt, could have accommodated a 2.5 mm shunt as there was still flow around the shunt
Findings: His left ventricular ejection fraction preoperatively was 60 to 65% with no significant regional wall motion abnormalities. Following surgery his EF remained the same. There were no new regional wall motion abnormalities at the inclusion
of the case. The HAWKINS was harvested in a skeletonized fashion. The mammary graft was verified with Transonic flow probe to have excellent signals. Of note, we identified a fruit fly toward the end of the case while we were closing the wound, which
did not land into the surgical field, however, we did exchange suction tips and gloves as I swatted at the fly. Risk, ID, and our charge nurse were all notified of the event.
Description of Procedure: The patient was taken to the operating room. Their identity and procedure to be performed were verified and they were positioned supine on the operating table. Induction via general anesthesia with endotracheal intubation
was performed and central venous access and arterial monitoring were inserted. A preoperative transesophageal echocardiogram was performed to assess cardiac function and valvular function. The patient was then prepped and draped from chin to feet in
a sterile fashion and positioned with left side bumped up and left arm down. A preoperative time-out was performed with all members of the team present. A Veress needle was used to enter the chest after stopping ventilation with the left lung
verified by anesthesia. We started with slow pressure insufflation which they tolerated. An 8 mm port was inserted in the fourth intercostal space laterally and a camera was inserted verifying no intrathoracic iatrogenic injuries. 2 additional
ports(12 mm and 8mm) were placed along the midaxillary line on either side of the camera port. The robotic platform was then docked and targeted towards the mammary. The mammary was harvested in a skeletonized fashion. A posterior pericardiotomy
was created to facilitate drainage. Once sufficient length was obtained, an anterior pericardiotomy was created to identify the distal target. This was marked with a marker robotically. The cardiac stabilizer arm was then inserted through one of
the robotic ports under direct vision and aimed up towards the anterior chest wall. Full heparinization was given (a total of 24,000 units). 3 Hem-o-leslie clips were used to occlude and divide the mammary distally at its bifurcation, and a single 5-0
prolene suture was used to secure the mammary to the pericardium overlying the LAD target. The robot platform was then undocked and the patient and a left anterior thoracotomy was created over the target vessel. Upon entering the thoracic cavity
the mammary and LAD were visible. A soft tissue and thoracotomy retractor was placed to facilitate exposure and a pericardial well was created. The ACT was confirmed to be over 400.
The cardiac suction stabilizer was used to isolate the LAD target. The distal end of the mammary was prepped and beveled to size. We verified orientation and length of the REN and found brisk flow. A coronary arteriotomy was created and enlarged
with coronary rock scissors. A 2mm shunt was inserted to facilitate exposure and continued chitina coronary perfusion. There is still significant amount of flow around the shunt and so a Silastic blunt tip vessel loop was placed around the
proximal LAD and cinched down. An end-to-side anastomosis was created with a 7-0 prolene and secured with a micro corknot. The bulldog on the mammary was removed which demonstrated excellent graft flow. The shunt was then remove and demonstrated
excellent chitina flow. Appropriate hemostasis was confirmed. The mammary graft was inspected and was free from kinking or twisting and flowprobe evaluation demonstrated good flow and PI. A test dose of protamine was administered and the patient was
monitored for any adverse reaction before resuming protamine. A 19F angie drain into the pericardium and through the posterior pericardiotomy into the left chest. Fascia was approximated with #1 vicryl suture. Local analgesia was administered to
the surgical sites. The subcutaneous, dermis and epidermis were closed in layers in a running fashion. The skin wound was cleansed and dressed.
All instrument, sponge, and needle counts were confirmed to be correct x 2 at the end of the operation. The patient was transferred to the cardiac intensive care unit extubated in critical but stable condition.
I, Dr. Anthony Fink, was present, scrubbed for, and performed all critical elements of this procedure.
Anthony Fink MD, MS
Cardiothoracic Surgeon
[facility]
This operative dictation was created using the [employer] dictation system. Please excuse any grammatical, typographical, or 'sound alike' errors
--- NOTE | 2023-12-20 15:43 | W.PN.CD ---
Addendum entered and electronically signed by Geremias Avilez MD 12/20/23 16:33:
I saw and examined the patient.
The INFORMATION SYSTEMS CONSULTANT's note was reviewed and I agree with the note.
Comment: 63M with HLD, pre-DM, Beyer's esophagus, and recent NSTEMI s/p PCIx2 to LCx with unrevascularized 80% proximal LAD, who presented for MIDCAB
- ECG NSR
- extubated and doing OK without any pressor support
- cont routine postop care
Original Note:
Today's Communication / Plan
-
Follow telemetry
Impression / Plan
-
BACKGROUND: 63M with HLD, pre-DM, Beyer's esophagus, and recent NSTEMI s/p PCIx2 to LCx with unrevascularized 80% proximal LAD, who presented for MIDCAB
Primary Optometry Assistant: Dr. Robb
CAD S/P MIDCABG (HAWKINS-LAD) on 12/20/[address] Fink
-NSTEMI with ROCIO OM1, OM2 (11/10/2023)
-Ticagrelor resumption per cardiac surgery
-Pre-LVEF 60-65% without regional wall motion abnormality, unchanged postoperatively
-EKG sinus rhythm
-Already extubated, requiring no vasopressor support
-Follow telemetry
HLD with statin intolerance (atorvastatin), on rosuvastatin, goal LDL < 55, update fasting lipid panel around mid December
Prediabetes, Hgba1c 6.0%
Former smoker, continued cessation recommended
SUBJECTIVE:
Operative notes reviewed.
DATA:
Coronary angiography, 11/10/2023 (Dr. Mosquera):
1. Mildly elevated LV filling pressures with no aortic stenosis
2. Two-vessel obstructive coronary artery disease with culprit 100% thrombotic occlusion of a large OM1, as well as non-culprit 95% OM2 stenosis and 80% proximal LAD stenosis.
3. Successful IVUS-guided PCI to the OM2 with placement of a 2.0x18 mm [place] ROCIO post-dilated to high pressure with a 2.0 mm NC balloon and proximally with a 2.75 mm NC balloon.
4. Successful IVUS-guided PCI to the OM1 with placement of a 3.0x22 mm ROCIO
Transthoracic echocardiogram, 11/11/2023:
Normal left ventricular size, wall thickness and systolic function.
LV ejection fraction is 60-65% by Patel's method of discs. Normal diastolic
function.
Normal right ventricular size and function.
No significant valvular disease.
Estimated pulmonary artery pressure of 25 mmHg. Assuming a right atrial
pressure of 3 mmHg.
No prior study available for comparison.
Physical Exam
Vital Signs/Labs
Vital Signs
Temp Pulse Resp BP Pulse Ox
98.1 F 62 20 124/76 99
12/20/23 07:36 12/20/23 10:28 12/20/23 07:36 12/20/23 10:28 12/20/23 07:36
12/14/23 12:01
PT 13.2 Sec (11.4-14.6) 12/14/23 12:01
INR 1.00 12/14/23 12:01
APTT 30.8 Sec (23.4-35.0) 12/14/23 12:01
Physical Exam
Constitutional: No acute distress and Comfortable
EENT: Anicteric and Moist mucous membranes
Cardiovascular: Rhythm & rate is regular, S1S2 is normal and Rub present
Respiratory: Respiratory effort normal and Lungs clear to auscul.
GI: Soft, Distention absent, Flat and Non tender
Neuro/Psych: Other (Drowsy)
Other: Skin (Warm and dry)
Data Reviewed
-
Date of Service: December 20, 2023
EKG: Report Reviewed by me
Labs: Labs Reviewed by me
Old Records: Reviewed
[2023-12-20 15:59] LABS: Glucose - Point of Care 130 mg/dl (70-99)
[2023-12-20 16:19] LABS: B.E. -2.9 mmol/L; HCO3 25.4 mmol/L (21-28); Hematocrit 40.6 % (39.0-52.0); Hemoglobin 14.1 g/dL (13.0-18.0); PCO2 58 mmHg (35-48); PO2 87 mmHg (83-108); Platelet Count 157 10^3/uL (130-400); Potassium 3.9 mMOL/L (3.5-5.1); Sodium 134 mMOL/L (136-145); pH 7.25 (7.35-7.45)
--- NOTE | 2023-12-20 16:22 | PTCARENOTE ---
received pt from [facility], pt awake drowsy, temp 97.2 w/ elder hugger, able to verbalize name and date of , pt able to move al extremities, NSR per monitor, BP 97/63 MAP 66, CVP 6, palpable pulses, pox 95% 15L non rebreather, CTx1 L pleural to -20
wall suction, no air leaks or crepitus draining red in color, hypoactive bs, galvez draining clear yellow urine, left chest incisions approx. with surgical adhesive, insulin per glycemic protocol, RIJ Cordis w/ KVO infusing w/ slic, R A-line intact,
post-op EKG, labs collected,
[2023-12-20 16:33] LABS: INR 1.34; PT 16.4 Sec (11.4-14.6)
[2023-12-20 16:34] LABS: APTT 32.9 Sec (23.4-35.0)
[2023-12-20 16:38] LABS: Blood Urea Nitrogen 18 mg/dl (9-20); Estimated Creatinine Clearance 95 ml/min; Glucose 136 mg/dl (70-99); Magnesium 2.2 mg/dl (1.6-2.3)
[2023-12-20 17:06] LABS: Glucose - Point of Care 119 mg/dl (70-99)
[2023-12-20] MEDS: NSS 500 IV (17:11)
[2023-12-20] MEDS: KCL 50 IV ×2 (17:12→18:07)
[2023-12-20] MEDS: CALCIUM CHLORIDE 10% SYRINGE 50 ML IV (17:12)
[2023-12-20] MEDS: CALCIUM CHLORIDE 10% SYRINGE 50 MG IV (17:12)
[2023-12-20] MEDS: AZACTAM 2000 MG IV ×2 (17:13)
[2023-12-20] MEDS: NEURONTIN PO (17:14)
[2023-12-20] MEDS: NOVOLOG FLEXPEN SC ×2 (17:14→17:15)
[2023-12-20] MEDS: PACERONE PO (17:15)
[2023-12-20] MEDS: LR 250 ML IV ×2 (17:20→21:34)
--- NOTE | 2023-12-20 17:31 | PTCARENOTE ---
labs reviewed, iCal & K replaced, pt placed on BiPap per order. CVP 5-8 LR bolus 250 given.
[2023-12-20] MEDS: VANCOCIN 200 IV ×2 (17:34→21:58)
[2023-12-20 17:51] LABS: Glucose - Point of Care 117 mg/dl (70-99)
[2023-12-20 17:57] LABS: B.E. -1.8 mmol/L; HCO3 23.7 mmol/L (21-28); O2 Saturation % 99.3 % (94-98); PCO2 42 mmHg (35-48); PO2 99 mmHg (83-108); Potassium 3.8 mMOL/L (3.5-5.1); Sodium 135 mMOL/L (136-145); pH 7.36 (7.35-7.45)
[2023-12-20] MEDS: CRESTOR PO (18:22)
[2023-12-20 19:00] LABS: Glucose - Point of Care 109 mg/dl (70-99)
[2023-12-20] MEDS: OFIRMEV 100 IV (19:09)
--- NOTE | 2023-12-20 20:00 | PTCARENOTE ---
Assumed care of patient at 1900. Patient found in bed at time of assessment. Patient is AOx4, reports drowsiness, follows commands appropriately, moves all extremities. Lung sounds are diminished throughout, patient was on Bipap@8L however recently
transitioned to 6L via NC with ABG to be drawn at 2030. There is a L pleural CT in place draining red sanguineous. Heart sounds are audible, patient is SB on the monitor, there are normal palpable pulses, and no observable edema. Patient has active
BS throughout all four quadrants and an indwelling galvez catheter draining clear yellow. There is a L upper chest incision approx with surg adhesive DISPENSARY ATTENDANT ecchymotic around site, a L lateral chest incisionx2 approx with surg adhesive DISPENSARY ATTENDANT, and a 4x[address] dressing over CT wound site that is CDI. Patient has a R IJ cordis with slic, R radial [place], and R FA PIV. Patient is on an insulin gtt. Vital signs as follows T-98.0 P-55 BP-135/64 MAP-87 RR-21 saO2-100% CVP-4. Patient given ofirmev for 10/04
pain 2/2 L upper chest incision.
[2023-12-20 20:08] LABS: Glucose - Point of Care 93 mg/dl (70-99)
[2023-12-20] MEDS: SENOKOT-S 1 TABLET PO (20:30)
[2023-12-20] MEDS: BRILINTA 90 MG TUBE (20:30)
[2023-12-20 20:45] LABS: B.E. -1.3 mmol/L; HCO3 23.7 mmol/L (21-28); Ionized Calcium 1.23 mMOL/L (1.15-1.33); PCO2 40 mmHg (35-48); PO2 166 mmHg (83-108); Potassium 4.8 mMOL/L (3.5-5.1); pH 7.38 (7.35-7.45)
[2023-12-20 21:00] LABS: Hemoglobin 13.8 g/dL (13.0-18.0); Platelet Count 150 10^3/uL (130-400)
[2023-12-20] MEDS: ROXICODONE 5 MG PO (21:58)
[2023-12-20] MEDS: NEURONTIN 100 MG PO (21:58)
[2023-12-20] MEDS: LOW STRENGTH ASPIRIN 81 MG PO (21:58)
[2023-12-20] MEDS: TYLENOL PO (21:59)
[2023-12-20 22:09] LABS: Glucose - Point of Care 96 mg/dl (70-99)
[2023-12-21] VITALS (25 sets, daily range): BP systolic 80–118; BP diastolic 44–76; PULSE 61; O2SAT 98–99; BMI 23.2
[2023-12-21 00:16] LABS: Glucose - Point of Care 120 mg/dl (70-99)
[2023-12-21] MEDS: FLEXERIL 5 MG PO ×2 (00:17→13:31)
[2023-12-21] MEDS: DILAUDID 0.25 MG IV (02:11)
[2023-12-21 02:19] LABS: Glucose - Point of Care 100 mg/dl (70-99)
[2023-12-21] MEDS: LR 250 ML IV ×2 (03:15→16:29)
--- NOTE | 2023-12-21 03:30 | PTCARENOTE ---
Patient received resting in bed. Patient A+A+Ox3. No neurological deficits noted. Patient with c/o 6/10 Left chest and left middle back pain - IV Dilaudid 0.25 mg administered with positive relief provided. No s/s of respiratory distress. No
c/o SOB. O2 at 6L via NC. SpO2 100%. Left Pleural chest tube - Intact and patent - No air leak, tidaling or crepitus noted. Dressing intact. Sinus Bradycardia. Heart rate 50's. Patient with no c/o chest pain, pressure or discomfort.
Normoactive bowel sounds. No BM. No c/o nausea. No vomiting. Sams catheter - Temperature sensing - Yellow urine - Outputs as documented. Right I.J. Cordis with [place] Catheter. Right radial arterial line. A-Line and CVP - Pressure bag and
saline flush - Flush without difficulty - Zeroed and calibrated - waveform within normal limits. CVP 5. LR Bolus 250 ml administered for decreased urine output and CVP <6. Left anterior chest with incision - Intact - Surgical adhesive. Left
lateral chest with two puncture sites open to air. Positive, palpable pulses. Assessment as documented.
--- NOTE | 2023-12-21 03:43 | W.PN.CT ---
Today's Communication / Plan
-
-pod #1
-no significant issues overnight, mild hypotension - improved with ivf (got total 750 LR)
-sinus alesha low 50s overnight (preop ECG with sinus alesha hr 48)
-Brilinta restarted 12/19 d/t recent ROCIO stents in October
-drips: insulin
-L pleural CT put out 90/170 in 1224 hrs, no air leak
-deline
-continue insulin (HgA1c 6.0)
-d/c Sams
-current meds (ASA, Brilinta, Crestor, Lopressor, Amio, Aciphex)
-encourage IS, OOB
Assessment / Plan
-
- CAD with proximal LAD involvement - s/p Robotic assisted MIDCAB (single-vessel bypass HAWKINS in situ to LAD) on 12/20/23, pod #1
- Intraop RADHA: LVEF preop and post was 60 to 65% with no significant regional wall motion abnormalities.
- Recent NSTEMI requiring PCI and stents to OM1 and OM2 on 11/10/23- on ASA and Brilinta preop
- Hepatitis A [remote]
- HTN/Hyperlipidemia
- Beyer's esophagus
- Hiatal hernia
- Prediabetes (HgA1c 6.0)
- GERD
- BPH
- Former tobacco, quit 1979
- Headaches
- Acute postop pericarditis/ +rub
- Acute postop atelectasis
- Acute postop hypovolemia with subsequent hypervolemia
Discussed patient care with: Nursing and Care Team
Subjective
Procedure
- s/p Robotic assisted MIDCAB (single-vessel bypass HAWKINS in situ to LAD) on 12/20/23
-
Date of Service: December 21, 2023
Objective Data
-
PT 16.4 Sec (11.4-14.6) H 12/20/23 16:12
INR 1.34 12/20/23 16:12
APTT 32.9 Sec (23.4-35.0) 12/20/23 16:12
Vital Signs
Vital Signs
Temp Pulse Resp BP Pulse Ox
98.2 F 52 13 94/57 98
12/21/23 03:00 12/21/23 03:30 12/21/23 03:30 12/21/23 03:00 12/21/23 03:30
CT Intake/Output/Weight
12/20/23 12/20/23 12/21/23
06:59 18:59 06:59
Intake Total 471.0 / 919.0 448.0 / 919.0
Output Total 220 / 820 600 / 820
Balance 251.0 / 99.0 -152.0 / 99.0
SaO2: 98
Physical Exam
-
General: Awake and AOx3
Cardiovascular: Regular rate & rhythm, No Murmurs and Rub
Respiratory: Decreased Breath Sounds
Sternum: Stable
Incision: Clean, Dry and Dressing Intact
Extremities: No Edema (2+ DPs b/l)
Abdomen: soft, nontender, nondistended, + decreased bowel sounds
Data Reviewed
-
Lab Results: Results Reviewed
Medications: Active Meds Reviewed
Chest X-Ray: Report Reviewed and Image Reviewed
ECG: Report Reviewed and Image Reviewed
[2023-12-21 04:32] LABS: Glucose - Point of Care 92 mg/dl (70-99)
[2023-12-21 04:47] LABS: Hematocrit 36.9 % (39.0-52.0); Mean Corp Hgb Conc. 35.2 g/dL (33.0-37.0); Mean Corpuscular Hgb 29.7 pg (27.0-31.0); Mean Corpuscular Volume 84.4 fL (80.0-94.0); Mean Platelet Volume 8.9 fL (7.4-10.4); Platelet Count 146 10^3/uL (130-400); Red Blood Cell Count 4.37 10^6/uL (4.70-6.10); Red Cell Dist. Width 12.4 % (11.5-14.5); White Blood Cell Count 12.4 10^3/uL (4.8-10.8)
[2023-12-21] MEDS: ROXICODONE 5 MG PO ×4 (05:10→19:46)
[2023-12-21] MEDS: TYLENOL 1000 MG PO ×3 (05:10→19:48)
[2023-12-21 05:14] LABS: Blood Urea Nitrogen 17 mg/dl (9-20); Calcium 8.5 mg/dl (8.4-10.2); Carbon Dioxide 24 mmol/L (22-30); Chloride 106 mmol/L (98-107); Estimated Creatinine Clearance 95 ml/min; Glucose 93 mg/dl (70-99); Magnesium 2.1 mg/dl (1.6-2.3); Potassium 4.6 mmol/L (3.5-5.1); Sodium 139 mmol/L (135-145); eGFR > 60.00
[2023-12-21 05:59] LABS: Glucose - Point of Care 114 mg/dl (70-99)
--- NOTE | 2023-12-21 06:35 | PTCARENOTE ---
Patient A+A+Ox3. No neurological deficits noted. AM labs collected and sent. Patient de-lined. Sams d/c - Due to void at 1230 pm. OOB to chair without difficulty. Assessment/Interventions as documented.
--- NOTE | 2023-12-21 07:39 | W.PN.ANS.POP ---
Anesthesia Post Operative
- Anesthesia Post Op Note
Vital Signs Stable-See Nursing Note: Yes
Airway Patent: Yes
Adequate Pain Control: Yes
Change in Mental Status: No
Current Postoperative Nausea & Vomiting: No
Anesthesia Complications: No
General Anesthetic Recall: No
Unplanned Admission: No
Post Op Hydration Adequate: Yes
--- NOTE | 2023-12-21 08:08 | W.PN.CD ---
Today's Communication / Plan
-
Continue DAPT.
Restart rosuvastatin.
Incentive spirometry.
Limited TTE this morning to assess wall motion, pericardium.
Impression / Plan
-
Impression/Plan: 63M with HLD, pre-DM, Beyer's esophagus, and recent NSTEMI s/p PCIx2 to LCx with unrevascularized 80% proximal LAD, admitted for elective MIDCAB.
#CAD
-Chronic, stable.
-S/P Medtronic [place] 2.0 x 18 ROCIO to culprit OM2, Medtronic [place] 3.0 x 22 to OM1 for NSTEMI, 11/10/2023.
-S/P MIDCABG (HAWKINS-LAD) on 12/20/[address] Fink.
-Pre-LVEF 60-65% without regional wall motion abnormality, unchanged postoperatively.
-Continue aspirin, metoprolol, ticagrelor.
-Restart rosuvastatin 40 mg daily when taking PO.
-Encourage incentive spirometry/ambulation.
-ST/T wave changes with recent MID-CAB. Concern for pericarditis (much less likely an acute ischemic insult).
-Limited TTE this morning to assess wall motion, pericardium.
#HLD with statin intolerance (atorvastatin)
-Chronic, stable.
-Continue rosuvastatin, goal LDL < 55.
#Prediabetes, Hgba1c 6.0%
#Former smoker, continued cessation recommended
Primary Fiber Product Cutting Machine Operator: Dr. Robb
Subjective/Interval History:
Operative notes reviewed.
Weight down 0.6 kg (77.4 <-- 78 kg).
HR 40's to 60.
BP relatively stable.
SaO2 98% on 2LNC.
Chest pain managed with roxicodone.
EKG shows T wave peaking > QRS segment in anteroseptal precordium. There is somewhat diffuse ST elevation in most leads.
DATA:
Coronary angiography, 11/10/2023 (Dr. Mosquera):
1. Mildly elevated LV filling pressures with no aortic stenosis
2. Two-vessel obstructive coronary artery disease with culprit 100% thrombotic occlusion of a large OM1, as well as non-culprit 95% OM2 stenosis and 80% proximal LAD stenosis.
3. Successful IVUS-guided PCI to the OM2 with placement of a 2.0x18 mm [place] ROCIO post-dilated to high pressure with a 2.0 mm NC balloon and proximally with a 2.75 mm NC balloon.
4. Successful IVUS-guided PCI to the OM1 with placement of a 3.0x22 mm ROCIO
Transthoracic echocardiogram, 11/11/2023:
Normal left ventricular size, wall thickness and systolic function.
LV ejection fraction is 60-65% by Patel's method of discs. Normal diastolic
function.
Normal right ventricular size and function.
No significant valvular disease.
Estimated pulmonary artery pressure of 25 mmHg. Assuming a right atrial
pressure of 3 mmHg.
No prior study available for comparison.
Physical Exam
Vital Signs/Labs
Vital Signs
Temp Pulse Resp BP Pulse Ox
36.7 C 54 18 105/58 98
12/21/23 06:00 12/21/23 07:00 12/21/23 06:00 12/21/23 06:00 12/21/23 06:00
12/19/23 12/20/23 12/21/23
11:59 11:59 11:59
Actual Weight 77.4 kg
12/21/23 04:28
12/21/23 04:28
PT 16.4 Sec (11.4-14.6) H 12/20/23 16:12
INR 1.34 12/20/23 16:12
APTT 32.9 Sec (23.4-35.0) 12/20/23 16:12
Magnesium 2.1 mg/dl (1.6-2.3) 12/21/23 04:28
Physical Exam
Constitutional: No acute distress and Comfortable
EENT: Anicteric and Moist mucous membranes
Cardiovascular: Rhythm & rate is regular, Pedal edema is absent, JVD pressure is normal, S1S2 is normal and Murmur/rub/gallop absent
Respiratory: Respiratory effort normal, Lungs clear to auscul., Wheeze Absent, Crackles Absent and Rhonchi Absent
GI: Soft, Distention absent, Flat, Non tender and Normal bowel sounds
Neuro/Psych: AO x 3
Data Reviewed
-
Date of Service: December 21, 2023
Medical Decision Making: Reviewed Test Results, Independent Historian Assessment, Test Interpretation and Review of Case with other Provider
EKG: Tracing Personally Visualized and interpreted and Report Reviewed by me
Echo: Ordered by me
X-Ray/CT/US/MRI/NUC/PET: Image Personally Visualized and interpreted and Report Reviewed by me
Medical Tests (PFT, Pathology etc): Image Personally Visualized and interpreted and Report Reviewed by me
Labs: Labs Reviewed by me
Old Records: Reviewed
[2023-12-21 08:24] LABS: Glucose - Point of Care 82 mg/dl (70-99)
--- NOTE | 2023-12-21 08:30 | PTCARENOTE ---
Assumed care of patient at 0700. Pt is awake, alert, and oriented. Pt with complaints of left lateral chest pain, pain medication administered per order. Pt remains SR/SB with HR 50's-60's. BP 107/66 MAP 78. Pulse oximetry 98% on room air. Left
lateral pleural chest tube in place, no sign of air leak or crepitus, drainage serosanguineous. Pt tolerating PO medications. Pt due to void. Left chest incision approximated and VERNELL. Right IJ cordis in place with KVO. Pt currently resting
comfortably OOB in chair at this time with call clarke within reach.
[2023-12-21] MEDS: TORADOL 15 MG IV ×3 (08:32→19:48)
[2023-12-21] MEDS: MAGNESIUM OXIDE 500 MG PO ×2 (08:32→19:48)
[2023-12-21] MEDS: NEURONTIN 100 MG PO ×3 (08:32→19:47)
[2023-12-21] MEDS: NON-FORMULARY ITEM 20 MG PO (08:32)
[2023-12-21] MEDS: LOW STRENGTH ASPIRIN 81 MG PO (08:32)
[2023-12-21] MEDS: BRILINTA 90 MG TUBE ×2 (08:33→19:47)
[2023-12-21] MEDS: PACERONE PO ×2 (08:33→08:40)
[2023-12-21] MEDS: SENOKOT-S 1 TABLET PO ×2 (08:33→19:48)
[2023-12-21] MEDS: COLCHICINE 0.3 MG PO (08:33)
[2023-12-21] MEDS: BACTROBAN 2% OINTMENT 1 APPLIC NASAL ×2 (08:33→19:48)
--- NOTE | 2023-12-21 08:34 | W.PN.INTV ---
Today's Communication / Plan
Recommendations
Up OOB as tolerated
Encourage incentive spirometer use
Cardiac rehab consult
Maintain SpO2 >90-94%
To be weaned off insulin drip this afternoon and then would recommend insulin SQ supplementation to maintain BG goal at 140�180
Once off insulin drip and downgraded to telemetry then [employer]/Pulmonary service will sign off. Please call back with any questions or concerns.
Assessment
-
Assessment: 63-year-old male former tobacco smoker (quit in 1979) with a past medical history of hepatitis A, hyperlipidemia, IFG, BPH, Beyer's esophagus, hiatal hernia, GERD and CAD with history of NSTEMI (October 2023 - ROCIO to OM1 and OM2) who
presents with elective MIDCAB. Patient known to cardiothoracic service with last visit on 12/07/[address] Fink. Patient had an NSTEMI in October 2023 with LHC performed on 11/10/2023 showing two-vessel obstructive coronary disease requiring IVUS
guided PCI to the OM 2+ OM1 with placement of ROCIO to each vessel. Patient had mildly elevated filling pressures with LVEDP of 20 mmHg. Since the cath, patient has been feeling well except had an episode of right-sided dull chest pain that subsided
with rest. Last echo on 11/11/2023 showed LVEF preserved at 60-65% with normal RV size and function with mild pulmonary hypertension with PASP 25 mmHg assuming an RAP of 3 mmHg. There was no significant valvular disease either. Surgical
intervention with robotic assisted MIDCAB with HAWKINS to LAD bypass was discussed including its risks and benefits. On 12/20/2023, the pt underwent robotic assisted MIDCAB with robotic assisted harvest of internal mammary artery with anterolateral
minithoracotomy for CABG. Patient tolerated the procedure well with no immediate complications and was transferred to the CVICU postoperatively. [employer] services consulted for additional management/recommendations.
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
Impression:
#CAD with proximal LAD involvement with recent NSTEMI requiring PCI + LCx stenting s/p robotic assisted MIDCAB (POD #1)
#Acute respiratory failure with hypercapnia requiring BiPAP --> now on room air
#Personal history COVID-19 (diagnosed in February 2020)
#Former tobacco smoker (quit in 1979)
#Impaired fasting glucose/prediabetes (HbA1C: 6 on 12/14/2023)
#BPH
#CAD with history of NSTEMI s/p ROCIO x 2 to OM1 + OM2 (10/2023)
Plan:
Patient already extubated to BiPAP in the OR on 12/20/2023, and is now on room air and saturating well with SpO2 98%
Keep SpO2 >90-94%
prn nebulized bronchodilators � patient currently not bronchospastic
Maintain MAP>65
Replete electrolytes with K>4, Mg>2
Monitor chest tube output (left pleural chest tube X1)
Monitor hemoglobin
Monitor platelet count and coags
Transfuse blood products as needed to maintain Hb>7g/dL, plt>50k (given post-operative status)
CT surgery managing chest tubes
Monitor blood sugar to maintain euglycemia with goal BG 140-180
Insulin drip per protocol --> planning on being stopped this afternoon, at which point would recommend starting insulin SQ supplementation to keep BG at goal as above
Aspiration precautions
DVT prophylaxis
Early nutrition
Encourage IS use - 10x per hour for at least 4 hrs total a day
Early mobilization/cardiac rehab consult
Patient will be weaned off insulin drip this afternoon and then transferred to CVICU�telemetry status. Once off insulin drip and downgraded to telemetry then we will sign off. Please call back with any questions or concerns. Thank you for
allowing us to be involved in the care of this patient.
Data:
CXR 12/20/2023: Right apical and perihilar patchy opacities, likely atelectasis in the setting of recent surgery. No visible pneumothorax.
CXR 12/21/2023: No active pulmonary process; Stable support devices.
Total time spent today was 75 minutes for this encounter. Time includes reviewing laboratory test/imaging results, reviewing pertinent medical records, obtaining and reviewing medical history, performing an appropriate exam, ordering medications,
tests and procedures. Time also includes documentation of this encounter, coordinating patient care and communicating with other healthcare professionals. Total time does not include separately billed tests performed on this date of service.
Subjective Dataa
Subjective Data
Date of Service:
Date of Service: December 21, 2023
Chief Complaint: [employer] Follow Up and Pulmonary Follow Up
Subjective:
Patient was seen and evaluated today at bedside. Currently on insulin drip at 1.2 units/hr. He is sitting in the chair in no acute distress. Left pleural chest tube in place. He is on room air saturating 98%, heart rate 79 BP 94/56. No acute
events reported overnight. Patient's + daughter are in the room and all questions were answered. He feels well, denying chest pain or shortness of breath. He feels weird as he has to be assisted when he ambulates or goes to the bathroom.
Review of Systems
General: Other (Negative unless mentioned above)
Objective Data
Data Reviewed
Vital Signs / I&O / Oxygen:
Vital Signs
Temp Pulse Resp BP Pulse Ox
98.4 F 61 16 107/66 100
12/21/23 08:00 12/21/23 08:24 12/21/23 08:00 12/21/23 08:24 12/21/23 08:00
Intake and Output
12/20/23 12/21/23 12/22/23
06:59 06:59 06:59
Intake Total 1292.5 / 1304.8 22.5 / 22.5
Output Total 1480 / 1480 20 / 20
Balance -187.5 / -175.2 2.5 / 2.5
SaO2 100
Nasal Cannula flow liters per 2
minute
Physical Exam
General: Respiratory Distress (negative), Comfortable, Chills (negative) and Sweats (negative)
HEENT: Normocephalic and Anicteric
Cardiovascular: S1-S2 and Peripheral Edema (negative)
Respiratory: Clear, Wheeze (negative), Crackles (negative), Rhonchi (negative), Non-Labored Respirations and Chest Tube (Left pleural chest tube x 1)
GI: Soft, Non Distended, Non Tender and Normal Bowel Sounds
Neurology: AO x 3 and Tremors (negative)
Skin: Warm, Dry, Cyanosis (negative) and Jaundice (negative)
Labs/Micro/Reports
Lab Data
12/21/23 04:28
12/21/23 04:28
Laboratory Results
12/20/23 12/20/23 12/20/23
16:12 16:13 17:51
PT 16.4 H
INR 1.34
APTT 32.9
pH 7.25 L 7.36
pCO2 58 H 42
pO2 87 99
HCO3 25.4 23.7
O2 Delivery Level
12/20/23
20:39
PT
INR
APTT
pH 7.38
pCO2 40
pO2 166 H
HCO3 23.7
O2 Delivery Level
[2023-12-21] MEDS: LOPRESSOR 12.5 MG PO ×2 (08:40→19:47)
[2023-12-21] MEDS: VANCOCIN 200 IV (10:09)
[2023-12-21] MEDS: NOVOLOG FLEXPEN 4 UNITS SC ×2 (10:09→13:52)
[2023-12-21 10:11] LABS: Glucose - Point of Care 100 mg/dl (70-99)
[2023-12-21 12:26] LABS: Glucose - Point of Care 130 mg/dl (70-99)
--- NOTE | 2023-12-21 12:29 | PTCARENOTE ---
Pt remains SR/SB with HR 50's-60's. BP 90/50 MAP 63. Pulse oximetry 96% on room air. Left pleural chest tube remains in place, no sign of air leak or crepitus. Chest tube dressing changed. Pt tolerated clear liquid diet. Voided without issue. Pt
currently resting comfortably in bed awaiting ECHO.
[2023-12-21 13:52] LABS: Glucose - Point of Care 104 mg/dl (70-99)
[2023-12-21] MEDS: PACERONE 200 MG PO ×2 (15:18→19:47)
[2023-12-21] MEDS: NSS IV (15:22)
--- NOTE | 2023-12-21 15:26 | CM ---
Chart reviewed. Patient is independent of ADLS, lives with his in a 2 S[address], 0 MARIAJOSE, 0 DME. Plan is for the patient to return home with CT Transitional RN when medically stable. CM to follow
--- NOTE | 2023-12-21 15:49 | PTCARENOTE ---
Pt with no changes in assessment. Remains SR with HR 60's. BP 102/58 MAP 67. Pulse oximetry 98% on room air. Pt with continued complaints of left lateral chest pain, PRN Roxicodone administered for relief.
[2023-12-21 16:16] LABS: Glucose - Point of Care 143 mg/dl (70-99)
--- NOTE | 2023-12-21 16:34 | PTCARENOTE ---
Addendum entered by Topher Andrews RN 12/21/23 17:34:
BP 80/46 MAP 57
Original Note:
BP 80/46 MP 57, repeat BP 88/51 MAP 62. Pt asymptomatic. Reviewed with CT FIREARMS EXPERT, Melissa, 250mL LR bolus administered.
[2023-12-21] MEDS: CRESTOR 40 MG PO (17:47)
--- NOTE | 2023-12-21 20:49 | PTCARENOTE ---
assumed care of patient @ 1900. received pt sitting in chair, AOx3. VSS. moderate c/o pain, medicated with 5 of janna. NSR on tele. +pulses - edema. Lungs clear, diminished on room air. L pleural tube to wall suction, no air leak, tidaling or
crepitus noted. belly soft. voiding adequate amounts in urinal. R IJ cordis and PIV patent. All surgical sites CDI. pt assisted to bed, resting comfortably with call clarke within reach .
[2023-12-22] VITALS (8 sets, daily range): BP systolic 95–123; BP diastolic 55–62; BMI 23.6
--- NOTE | 2023-12-22 00:16 | PTCARENOTE ---
pt resting comfortably in bed with call clarke within reach , no change in assessment
[2023-12-22] MEDS: TORADOL 15 MG IV (02:49)
--- NOTE | 2023-12-22 04:29 | PTCARENOTE ---
labs drawn, pt resting comfortably, no change in assessment .
[2023-12-22 04:46] LABS: Hematocrit 34.6 % (39.0-52.0); Hemoglobin 11.9 g/dL (13.0-18.0); Mean Corp Hgb Conc. 34.4 g/dL (33.0-37.0); Mean Corpuscular Hgb 30.7 pg (27.0-31.0); Mean Corpuscular Volume 89.2 fL (80.0-94.0); Mean Platelet Volume 8.9 fL (7.4-10.4); Platelet Count 134 10^3/uL (130-400); Red Blood Cell Count 3.88 10^6/uL (4.70-6.10); Red Cell Dist. Width 12.8 % (11.5-14.5); White Blood Cell Count 11.1 10^3/uL (4.8-10.8)
--- NOTE | 2023-12-22 05:06 | W.PN.CT ---
Today's Communication / Plan
-
-pod #2
-no significant issues overnight
-sinus alesha low 50s overnight (similar to preop)
-L pleural CT put out 35/145 in 12/24 hrs
-current meds (ASA, Brilinta, Crestor, Lopressor, Amio, Aciphex)
-BMP is pending
-stable Echo 12/20
-encourage IS, OOB
Assessment / Plan
-
- CAD with proximal LAD involvement - s/p Robotic assisted MIDCAB (single-vessel bypass HAWKINS in situ to LAD) on 12/20/23, pod #2
- Intraop RADHA: LVEF preop and post was 60 to 65% with no significant regional wall motion abnormalities.
- Recent NSTEMI requiring PCI and stents to OM1 and OM2 on 11/10/23- on ASA and Brilinta preop
- Hepatitis A [remote]
- HTN/Hyperlipidemia
- Beyer's esophagus
- Hiatal hernia
- Prediabetes (HgA1c 6.0)
- GERD
- BPH
- Former tobacco, quit 1979
- Headaches
- Acute postop pericarditis/ +rub- tx with Colchicine and Toradol- Echo 12/20 is unremarkable
- Acute postop atelectasis
- Acute postop hypovolemia with subsequent hypervolemia
Echo 12/21/23:
Left ventricular ejection fraction is 60-65%, by visual assessment. Normal regional wall motion.
Normal right ventricular size and function.
No significant valvular disease.
No pericardial effusion.
No significant change since the prior study of 11/11/2023.
Discussed patient care with: Nursing and Care Team
Subjective
Procedure
- s/p Robotic assisted MIDCAB (single-vessel bypass HAWKINS in situ to LAD) on 12/20/23
-
Date of Service: December 22, 2023
Objective Data
-
Lab Results
12/22/23 04:20
PT 16.4 Sec (11.4-14.6) H 12/20/23 16:12
INR 1.34 12/20/23 16:12
APTT 32.9 Sec (23.4-35.0) 12/20/23 16:12
Vital Signs
Vital Signs
Temp Pulse Resp BP Pulse Ox
97.8 F 57 14 100/55 95
12/22/23 04:00 12/22/23 04:16 12/22/23 04:00 12/22/23 04:16 12/22/23 04:00
CT Intake/Output/Weight
12/21/23 12/21/23 12/22/23
06:59 18:59 06:59
Intake Total 821.5 / 1304.8 373.1 / 473.1 100 / 473.1
Output Total 1260 / 1480 460 / 1295 835 / 1295
Balance -438.5 / -175.2 -86.9 / -821.9 -735 / -821.9
SaO2: 95
Physical Exam
-
General: Awake and AOx3
Cardiovascular: Regular rate & rhythm, No Murmurs and +Rub
Respiratory: Decreased Breath Sounds
Sternum: Stable
Incision: Clean, Dry and Dressing Intact
Abdomen: soft, nontender, nondistended, + decreased bowel sounds
Extremities: No Edema (2+ DPs b/l)
Data Reviewed
-
Lab Results: Results Reviewed
Medications: Active Meds Reviewed
Chest X-Ray: Report Reviewed and Image Reviewed
ECG: Report Reviewed and Image Reviewed
[2023-12-22 05:19] LABS: Blood Urea Nitrogen 25 mg/dl (9-20); Calcium 7.9 mg/dl (8.4-10.2); Carbon Dioxide 26 mmol/L (22-30); Chloride 102 mmol/L (98-107); Estimated Creatinine Clearance 77 ml/min; Glucose 104 mg/dl (70-99); Magnesium 2.2 mg/dl (1.6-2.3); Potassium 4.3 mmol/L (3.5-5.1); Sodium 134 mmol/L (135-145); eGFR > 60.00
--- NOTE | 2023-12-22 06:18 | PTCARENOTE ---
pt bathed, assisted to BR, brushed teeth, now resting comfortably in chair
[2023-12-22] MEDS: TYLENOL 1000 MG PO ×3 (06:37→20:04)
[2023-12-22 06:42] LABS: B.E. - POC -1.1 mmol/L; Glucose - POC 150 mg/dl (70-99); HCO3 - POC 24 mmol/L (21-29); Hematocrit - POC 36 % PCV (42-52); Hemodilution- POC Yes; Hemoglobin Calculated - POC 12.4; Ionized Calcium - POC 1.09 mmol/L (1.12-1.27); O2 Saturation %Calculated-POC 99.9 5 (92-96); PCO2 - POC 39 mmHg (35-45); PO2 - POC 324 mmHg (80-100); POC Comment POST; Sodium - POC 140 mmol/L (135-145); pH - POC 7.39 (7.35-7.45)
[2023-12-22] MEDS: LOPRESSOR 12.5 MG PO ×2 (07:50→20:03)
[2023-12-22] MEDS: COLCHICINE 0.3 MG PO (07:50)
[2023-12-22] MEDS: MAGNESIUM OXIDE 500 MG PO ×2 (07:50→20:02)
[2023-12-22] MEDS: LOW STRENGTH ASPIRIN 81 MG PO (07:51)
[2023-12-22] MEDS: NON-FORMULARY ITEM 20 MG PO (07:51)
[2023-12-22] MEDS: NEURONTIN 100 MG PO ×3 (07:51→20:04)
[2023-12-22] MEDS: SENOKOT-S 1 TABLET PO ×2 (07:51→20:03)
[2023-12-22] MEDS: BRILINTA 90 MG TUBE ×2 (07:51→20:03)
[2023-12-22] MEDS: PACERONE 200 MG PO ×3 (07:51→20:04)
[2023-12-22] MEDS: BACTROBAN 2% OINTMENT 1 APPLIC NASAL ×2 (07:59→20:04)
--- NOTE | 2023-12-22 08:02 | PTCARENOTE ---
Received pt from night clerk RN; pt AAOx3 and resting comfortable in chair; Sinus Bradycardia on monitor and VSS; RIJ Cordis and PIV x1 patent; Lungs diminished; CT x1 to -20 wall suction, no air leak and no crepitus noted; positive bowel sounds; pt
voiding yellow urine; palpable pulses throughout; no edema noted; all surgical sites C/D/I; see nursing documentation for further details.
--- NOTE | 2023-12-22 08:13 | W.PN.CD ---
Today's Communication / Plan
-
CT coming out today
Looks great
continue current Rx.
Impression / Plan
-
Impression/Plan: 63M with HLD, pre-DM, Beyer's esophagus, and recent NSTEMI s/p PCIx2 to LCx with unrevascularized 80% proximal LAD, admitted for elective MIDCAB.
#CAD
-S/P [employer] [place] 2.0 x 18 ROCIO to culprit OM2, [employer] [place] 3.0 x 22 to OM1 for NSTEMI, 11/10/2023.
-S/P MIDCABG (HAWKINS-LAD) on 12/20/[address] Fink.
-Pre-LVEF 60-65% without regional wall motion abnormality, unchanged postoperatively.
-Continue aspirin, metoprolol, ticagrelor.
-Restart rosuvastatin 40 mg daily when taking PO.
-Encourage incentive spirometry/ambulation.
-ST/T wave changes with recent MID-CAB. ECHO 12-21 showed normal LV function
-Not significantly symptomatic and no rub heard on exam
- Telem OK- NSR . AF has not reared its ugly head
#HLD with statin intolerance (atorvastatin)
-Chronic, stable.
-Continue rosuvastatin, goal LDL < 55.
#Prediabetes, Hgba1c 6.0%
#Former smoker, continued cessation recommended
Primary Resource Protection Specialist: Dr. Robb
Subjective/Interval History:
Operative notes reviewed.
Weight down 0.6 kg (77.4 <-- 78 kg).
HR 40's to 60.
BP relatively stable.
SaO2 98% on 2LNC.
Chest pain managed with roxicodone.
EKG shows T wave peaking > QRS segment in anteroseptal precordium. There is somewhat diffuse ST elevation in most leads.
DATA:
Coronary angiography, 11/10/2023 (Dr. Mosquera):
1. Mildly elevated LV filling pressures with no aortic stenosis
2. Two-vessel obstructive coronary artery disease with culprit 100% thrombotic occlusion of a large OM1, as well as non-culprit 95% OM2 stenosis and 80% proximal LAD stenosis.
3. Successful IVUS-guided PCI to the OM2 with placement of a 2.0x18 mm [place] ROCIO post-dilated to high pressure with a 2.0 mm NC balloon and proximally with a 2.75 mm NC balloon.
4. Successful IVUS-guided PCI to the OM1 with placement of a 3.0x22 mm ROCIO
Transthoracic echocardiogram, 11/11/2023:
Normal left ventricular size, wall thickness and systolic function.
LV ejection fraction is 60-65% by Patel's method of discs. Normal diastolic
function.
Normal right ventricular size and function.
No significant valvular disease.
Estimated pulmonary artery pressure of 25 mmHg. Assuming a right atrial
pressure of 3 mmHg.
No prior study available for comparison.
Physical Exam
Vital Signs/Labs
Vital Signs
Temp Pulse Resp BP Pulse Ox
98.2 F 64 20 105/59 98
12/22/23 08:00 12/22/23 08:00 12/22/23 08:00 12/22/23 07:50 12/22/23 08:00
12/21/23 12/22/23 12/23/23
06:59 06:59 06:59
Actual Weight 170 lb 10.205 oz 173 lb 15.115 oz
12/22/23 04:20
12/22/23 04:20
PT 16.4 Sec (11.4-14.6) H 12/20/23 16:12
INR 1.34 12/20/23 16:12
APTT 32.9 Sec (23.4-35.0) 12/20/23 16:12
Magnesium 2.2 mg/dl (1.6-2.3) 12/22/23 04:20
Data Reviewed
-
Date of Service: December 22, 2023
--- NOTE | 2023-12-22 09:00 | PTCARENOTE ---
Left Chest tube removed per order without difficulties.
--- NOTE | 2023-12-22 11:21 | CM ---
Chart reviewed. Patient is independent of ADLS, lives with his in a 2 STH, 0 MARIAJOSE, 0 DME. Patient OOB ambulating the halls. Plan is for the patient to return home with CT Transitional RN. CM to follow
--- NOTE | 2023-12-22 12:14 | PTCARENOTE ---
received patient as transfer from CVICU into room 2252. Pt AAOX3. pt ambulating in room without difficulty. pt denies pain. SB on telemetry heart rate in 50s. pulses palpable no edema. pt on room air, sat 99%. lung sounds diminished in bases.
active bowel sounds. voiding in bathroom. surgical sites CDI. right IJ cordis infusing KVO. see worklist for full nursing assessment and interventions. pt updated on plan of care.
[2023-12-22] MEDS: NSS 500 IV (15:46)
--- NOTE | 2023-12-22 16:00 | PTCARENOTE ---
pt resting comfortably, denies pain. ambulating in hallways without difficulty. left old chest tube site with moderate amount of drainage- dressing changed. no further changes in assessment noted.
[2023-12-22] MEDS: CRESTOR 40 MG PO (16:57)
--- NOTE | 2023-12-23 01:10 | PTCARENOTE ---
POD #3- pt ambulating in the room as a self. Plan of care discussed pt verbalized understanding. Cordis in place with KVO fluids running. SB on the monitor. CT PA aware of bradycardia prior to Lopressor administration. pt states pain managed well
with Tylenol.
[2023-12-23 02:47] VITALS: BP 105/62
[2023-12-23 03:13] LABS: Hematocrit 36.5 % (39.0-52.0); Hemoglobin 12.8 g/dL (13.0-18.0); Mean Corp Hgb Conc. 35.1 g/dL (33.0-37.0); Mean Corpuscular Volume 85.5 fL (80.0-94.0); Mean Platelet Volume 9.2 fL (7.4-10.4); Platelet Count 153 10^3/uL (130-400); Red Blood Cell Count 4.27 10^6/uL (4.70-6.10); Red Cell Dist. Width 12.9 % (11.5-14.5); White Blood Cell Count 8.3 10^3/uL (4.8-10.8)
[2023-12-23 03:36] LABS: Blood Urea Nitrogen 21 mg/dl (9-20); Calcium 8.8 mg/dl (8.4-10.2); Carbon Dioxide 25 mmol/L (22-30); Chloride 106 mmol/L (98-107); Estimated Creatinine Clearance 85 ml/min; Glucose 110 mg/dl (70-99); Magnesium 2.2 mg/dl (1.6-2.3); Potassium 4.5 mmol/L (3.5-5.1); Sodium 142 mmol/L (135-145); eGFR > 60.00
[2023-12-23 04:08] VITALS: BMI 22.8
[2023-12-23] MEDS: TYLENOL 1000 MG PO (05:49)
--- NOTE | 2023-12-23 06:31 | W.PN.CT ---
Today's Communication / Plan
-
-pod #3
-doing well, no issues overnight, wants to go home
-labs are stable
-UO 2000 overnight
-possible d/c today
Assessment / Plan
-
- CAD with proximal LAD involvement - s/p Robotic assisted MIDCAB (single-vessel bypass HAWKINS in situ to LAD) on 12/20/23, pod #3
- Intraop RADHA: LVEF preop and post was 60 to 65% with no significant regional wall motion abnormalities.
- Recent NSTEMI requiring PCI and stents to OM1 and OM2 on 11/10/23- on ASA and Brilinta preop
- Hepatitis A [remote]
- HTN/Hyperlipidemia
- Beyer's esophagus
- Hiatal hernia
- Prediabetes (HgA1c 6.0)
- GERD
- BPH
- Former tobacco, quit 1979
- Headaches
- Acute postop pericarditis/ +rub- tx with Colchicine and Toradol- Echo 12/20 is unremarkable
- Acute postop atelectasis
- Acute postop hypovolemia with subsequent hypervolemia
Echo 12/21/23:
Left ventricular ejection fraction is 60-65%, by visual assessment. Normal regional wall motion.
Normal right ventricular size and function.
No significant valvular disease.
No pericardial effusion.
No significant change since the prior study of 11/11/2023.
Discussed patient care with: Nursing and Care Team
Subjective
Procedure
- s/p Robotic assisted MIDCAB (single-vessel bypass HAWKINS in situ to LAD) on 12/20/23
-
Date of Service: December 23, 2023
Objective Data
-
Lab Results
12/23/23 02:54
12/23/23 02:54
PT 16.4 Sec (11.4-14.6) H 12/20/23 16:12
INR 1.34 12/20/23 16:12
APTT 32.9 Sec (23.4-35.0) 12/20/23 16:12
Vital Signs
Vital Signs
Temp Pulse Resp BP Pulse Ox
98.3 F 56 18 105/62 97
12/23/23 02:49 12/23/23 05:00 12/23/23 02:49 12/23/23 02:47 12/23/23 02:[address]
CT Intake/Output/Weight
12/22/23 12/22/23 12/23/23
06:59 18:59 06:59
Intake Total 100 / 473.1 1560 / 2040 480 / 2040
Output Total 835 / 1295 1999 / 1999
Balance -735 / -821.9 1560 / 40 -1520 / 40
SaO2: 97
Physical Exam
-
General: Awake and AOx3
Cardiovascular: Regular rate & rhythm, No Murmurs and No Rub
Respiratory: Decreased Breath Sounds
Sternum: Stable
Incision: Clean, Dry and Dressing Intact
Extremities: No Edema (2+ DPs b/l)
Data Reviewed
-
Lab Results: Results Reviewed
Medications: Active Meds Reviewed
Chest X-Ray: Report Reviewed and Image Reviewed
ECG: Report Reviewed and Image Reviewed
[2023-12-23] MEDS: BACTROBAN 2% OINTMENT 1 APPLIC NASAL (08:06)
[2023-12-23] MEDS: NEURONTIN 100 MG PO (08:06)
[2023-12-23] MEDS: LOW STRENGTH ASPIRIN 81 MG PO (08:07)
[2023-12-23] MEDS: COLCHICINE 0.3 MG PO (08:07)
[2023-12-23] MEDS: MAGNESIUM OXIDE 500 MG PO (08:07)
[2023-12-23] MEDS: BRILINTA 90 MG TUBE (08:07)
[2023-12-23] MEDS: PACERONE 200 MG PO (08:07)
[2023-12-23] MEDS: SENOKOT-S 1 TABLET PO (08:07)
[2023-12-23] MEDS: LOPRESSOR 12.5 MG PO (08:07)
--- NOTE | 2023-12-23 08:07 | W.DCSUMMARY ---
Discharge Summary
Discharge Data
Date of Admission: 12/20/23
Date of Discharge: 12/23/23
Total time spent discharging patient (in min): 35
-
Pending Results: No
Hospital Course
Primary care physician:
Dr. Claude Argueta MD.
Outpatient heat and frost insulator helper:
Dr. Geremias Avilez MD.
Inpatient consultants:
[facility] cardiology
Procedures:
1. Robotic assisted minimally invasive direct coronary artery bypass grafting (single-vessel bypass left internal mammary artery to left anterior descending coronary artery)
Primary Diagnosis:
1. Coronary artery disease with proximal left anterior descending involvement and recent non-ST elevated myocardial infarction requiring percutaneous intervention and stenting to circumflex/OM1 and OM2
2. Hypertension
3. Hyperlipidemia
4. Benign prostatic hypertrophy
5. Gastroesophageal reflux disease
6. Beyer's esophagus
7. Remote history of hepatitis A
8. History of headaches
9. Qcn-ahfphsr-aakeapdub diabetes mellitus type 2 based on hemoglobin A1c of 6.0
10. Postoperative acute blood loss anemia
11. Postoperative pericarditis
Secondary Diagnoses:
1. Coronary artery disease with proximal left anterior descending involvement and recent non-ST elevated myocardial infarction requiring percutaneous intervention and stenting to circumflex/OM1 and OM2
2. Hypertension
3. Hyperlipidemia
4. Benign prostatic hypertrophy
5. Gastroesophageal reflux disease
6. Beyer's esophagus
7. Remote history of hepatitis A
8. History of headaches
9. Vbs-ujvlryd-rnlenihwy diabetes mellitus type 2 based on hemoglobin A1c of 6.0
10. Postoperative acute blood loss anemia
11. Postoperative pericarditis
HPI:
Patient is an extremely pleasant 63-year-old male who suffered a non-ST elevated myocardial infarction back in October requiring percutaneous intervention and drug-eluting stent to OM1 and OM 2. He was found to have residual proximal LAD disease and
was referred for a left internal mammary artery to left anterior descending coronary artery bypass grafting. Patient was seen as an outpatient in consultation and was deemed an appropriate candidate to undergo minimally invasive direct coronary
artery bypass grafting using robotic assisted harvesting of his left internal mammary artery.
Hospital course:
Patient presented as an outpatient electively on the date described above for the procedure described above. Patient tolerated procedure well. Patient was extubated in the operating room. He was transferred to the cardiovascular intensive care
unit where he underwent his postoperative recovery. Initially he was found to be in respiratory acidosis and was placed on BiPAP. This shortly corrected. He resumed Brilinta that evening for his drug-eluting stents. On postoperative day #1
patient was given multiple fluid challenges for low urinary output. Morning EKG revealed sinus tachycardia with postoperative pericarditis and the patient was started on colchicine and Toradol. On postoperative day #2 his chest tubes were removed
and the patient was otherwise doing well. On postoperative day #3 he was ambulate without issues and his vital signs are stable. He was tolerating dual antiplatelet therapy with Brilinta and aspirin, as well as beta-blockade therapy. Patient was
seen by attending physician on morning rounds and medically cleared to be discharged to home.
Home medication changes:
Please pay attention to the following medication changes:
Take Colchicine 0.3 mg daily (1/2 tablet)-post op pericarditis
Take Gabapentin 100 mg TID PRN-post op pain
Take Toprol XL 25 mg daily-s/p Mid CAB, AFIB, HTN
Please stop taking the following medications:
Stop taking Lisinopril 5 mg daily-labile blood pressures, discuss restarting at follow up with Cardiology, Dr. Tushar MD.
Stop taking Metoprolol Tartrate 25 BID and replace with Toprol XL 25 mg daily.
Stop taking Nitroglycerin 0.4 mg PRN-therapy no longer required s/p Mid CAB.
Discharge Plan
-
Patient Disposition: Home (Routine Discharge)
Discharge Diagnosis/Procedures: MID-CAB (HAWKINS-LAD)
Condition: Good
Diet: Low Cholesterol
Activity: No strenuous activity
Driving Restrictions: Not until seen by your Dr
Bathing Restrictions: OK to Shower
Other Services: Cardiac Rehab
Specialty Instructions: Weigh Daily- Call MD for wt gain/loss 3 lbs overnight/5 lbs in 1 week
Activity Restrictions/Additional Instructions:
Please call [facility] Cardiac Rehab to get scheduled.
[phone]
ACTIVITY:
-No strenuous activity: no heavy lifting, pushing, pulling anything over 15 pounds for one month
-continue to use stairs as tolerated
DRIVING RESTRICTIONS:
-No driving for one month or until approved by your surgeon
WOUND CARE:
-Shower daily. Use soap & water.
-No lotions, creams or powders on incision area.
DIET:
-continue a low fat/low cholesterol diet.
-IF you are diabetic, continue carb controlled diet.
CARDIAC REHAB:
-Please make appointment to start in 5-6 weeks with your local hospital program. (See Cardiac Rehabilitation Discharge Booklet).
SPECIALTY INSTRUCTIONS:
-Weigh yourself daily. Call your physician for any weight gain/loss of 3 lbs overnight or 5 lbs in one week.
-REPORT any clicking noise or uneven appearance of your sternum to your surgeon immediately.
-If you smoke, you are instructed to quit. The [place] smoking hotline phone number is [phone]
Referrals:
CT Transitional Care Nurse [Outside] (The Cardiothoracic Transitional Care Nurse will call you to set up a visit in 1-2 days.)
[facility] Cardiac Re[facility] [Outside]
(Cardiac Rehab Orientation appointment is on Tuesday01/27/2024@ 1pm.
The Cardiac Rehab gym is located on the first floor of the Cardiovascular [facility]ilion.)
Fay Chavez NP [Specified Professional Personl] - 01/30/24 2:00 pm
Claude Argueta CRNP [Family Provider] -
Anthony Fink MD [Active] - 01/25/24 2:00 pm
Additional Discharge Medication Instructions: Please pay attention to the following medication changes?
Take Colchicine 0.3 mg daily (1/2 tablet)-post op pericarditis
Take Gabapentin 100 mg TID PRN-post op pain
Take Toprol XL 25 mg daily-s/p Mid CAB, AFIB, HTN
Please stop taking the following medications:
Stop taking Lisinopril 5 mg daily-labile blood pressures, discuss restarting at follow up with Cardiology, Dr. Tushar MD.
Stop taking Metoprolol Tartrate 25 BID and replace with Toprol XL 25 mg daily.
Stop taking Nitroglycerin 0.4 mg PRN-therapy no longer required s/p Mid CAB.
Prescriptions:
New
colchicine 0.6 mg Tablet
0.3 mg PO DAILY Qty: 30 0RF
metoprolol succinate [Toprol XL] 25 mg tablet extended release 24 hr
25 mg PO DAILY Qty: 30 0RF
gabapentin 100 mg Capsule
100 mg PO TID PRN (Reason: post-op pain) Qty: 30 0RF
Continued
Metamucil 3.4 gram/5.4 gram Powder
1 tsp PO HS
rabeprazole 20 mg Tablet,Delayed Release (Dr/Ec)
20 mg PO DAILY
rosuvastatin 40 mg Tablet
40 mg PO QPM Qty: 90 1RF
cyanocobalamin (vitamin B-12) [Vitamin B-12] 500 mcg Tablet
500 mcg PO BID
Patient Comments:
morning and lunch
magnesium glycinate 210 MG capsule
210 mg PO BID
Probiotic 10 billion cell Capsule
10,000 mmu cells PO DAILY
Patient Comments:
unknown mmu cell dose
aspirin 81 mg tablet,chewable
81 mg PO DAILY
Brilinta 90 mg tablet
90 mg PO BID
Discontinued
acetaminophen [Tylenol Extra Strength] 500 mg Tablet
500 mg PO BIDPRN PRN (Reason: mild pain)
nitroglycerin 0.4 mg Tablet, Sublingual
0.4 mg sublingual [id number] PRN (Reason: chest pain) Qty: 25 2RF
lisinopril 5 mg tablet
5 mg PO DAILY
metoprolol tartrate 25 mg tablet
25 mg PO BID
Discharge Orders:
Discharge Patient (As Directed); Ordered 12/23/23
Ordered By: Alethea Haynes
Care Plan Goals
Care Plan Goals:
Problem: Readiness for enhanced knowledge related to diagnosis and treatment plan
Goal: Understand your diagnosis and treatment plan needs, including medications if applicable.
Instructions: Know your diagnosis, underlying causes and treatment plan options, including medications if applicable. Consult with your health care team to learn about your diagnosis and treatment plan, including medications if applicable.
Discharge Date and Time
Print Language: VIETNAMESE
[2023-12-23] MEDS: NON-FORMULARY ITEM 20 MG PO (08:10)
[2023-12-23 08:15] VITALS: BP 110/57
--- NOTE | 2023-12-23 08:20 | PTCARENOTE ---
Assumed care of pt from prev nsg shift; pt AAOX3 w/no c/o CP or SOB. Pt c/o 'mild' 2/10 L incision site pain, but declined meds at this time. Pt states 'pain is so much better with the tube out'. Pt's VS stable w/HR 50's & BP this AM 110/57. Pt is
SB on telemetry monitoring. Pt w/R Cordis IV line w/NSS IVF infusing as ordered. Pt's L chest incision site [employer]GER w/sm amt of ecchymosis. Old chest tube site w/dressing C/D/I. CT surgery PA's in to see pt & pt anticipating D/C this AM. [employer]CRA[employer] MECH[employer]IC
notified to come remove Cordis line prior to D/C. Pt w/no addtl needs at this time.
--- NOTE | 2023-12-23 09:02 | W.PN.CD ---
Today's Communication / Plan
-
dsicharge
Impression / Plan
-
Impression/Plan: 63M with HLD, pre-DM, Beyer's esophagus, and recent NSTEMI s/p PCIx2 to LCx with unrevascularized 80% proximal LAD, s/p MIDCAB w/ Dr. Fink. Pending discharge.
#CAD
-S/P [employer]tronic [place] Elmo 2.0 x 18 ROCIO to culprit OM2, [employer]tr[employer] Reynold Elmo 3.0 x 22 to OM1 for NSTEMI, 11/10/2023.
-S/P MIDCABG (HAWKINS-LAD) on 12/20/[address] Fink.
-Pre-LVEF 60-65% without regional wall motion abnormality, unchanged postoperatively.
-Continue aspirin, metoprolol, ticagrelor.
-rosuvastatin 40 mg daily when taking PO.
-Encourage incentive spirometry/ambulation.
-ST/T wave changes with recent MID-CAB. ECHO 12-21 showed normal LV function
-Not significantly symptomatic and no rub heard on exam
-Telem OK- NSR
#HLD with statin intolerance (atorvastatin)
-Chronic, stable.
-Continue rosuvastatin, goal LDL < 55.
#Prediabetes, Hgba1c 6.0%
#Former smoker, continued cessation recommended
Primary Ctrs: Dr. Robb
Subjective/Interval History:
HR 40's to 60.
BP relatively stable.
off O2
colchicine for possible pericarditis
DATA:
Coronary angiography, 11/10/2023 (Dr. Mosquera):
1. Mildly elevated LV filling pressures with no aortic stenosis
2. Two-vessel obstructive coronary artery disease with culprit 100% thrombotic occlusion of a large OM1, as well as non-culprit 95% OM2 stenosis and 80% proximal LAD stenosis.
3. Successful IVUS-guided PCI to the OM2 with placement of a 2.0x18 mm [place] ROCIO post-dilated to high pressure with a 2.0 mm NC balloon and proximally with a 2.75 mm NC balloon.
4. Successful IVUS-guided PCI to the OM1 with placement of a 3.0x22 mm ROCIO
Transthoracic echocardiogram, 11/11/2023:
Normal left ventricular size, wall thickness and systolic function.
LV ejection fraction is 60-65% by Patel's method of discs. Normal diastolic
function.
Normal right ventricular size and function.
No significant valvular disease.
Estimated pulmonary artery pressure of 25 mmHg. Assuming a right atrial
pressure of 3 mmHg.
No prior study available for comparison.
Physical Exam
Vital Signs/Labs
Vital Signs
Temp Pulse Resp BP Pulse Ox
36.6 C 56 20 110/57 97
12/23/23 08:18 12/23/23 08:15 12/23/23 08:18 12/23/23 08:15 12/23/23 08:18
12/22/23 12/23/23 12/24/23
06:59 06:59 06:59
Actual Weight 78.9 kg 76.3 kg
12/23/23 02:54
12/23/23 02:54
PT 16.4 Sec (11.4-14.6) H 12/20/23 16:12
INR 1.34 12/20/23 16:12
APTT 32.9 Sec (23.4-35.0) 12/20/23 16:12
Magnesium 2.2 mg/dl (1.6-2.3) 12/23/23 02:54
Physical Exam
Constitutional: No acute distress and Comfortable
Cardiovascular: Rhythm & rate is regular, Pedal edema is absent, JVD pressure is normal, Systolic murmur absent and Diastolic murmur absent
Respiratory: Respiratory effort normal and Lungs clear to auscul.
Neuro/Psych: Alert, Oriented and AO x 3
Data Reviewed
-
Date of Service: December 23, 2023
Medical Decision Making: Reviewed Test Results
EKG: Tracing Personally Visualized and interpreted and Report Reviewed by me
Echo: Report Reviewed by me
X-Ray/CT/US/MRI/NUC/PET: Image Personally Visualized and interpreted and Report Reviewed by me
Labs: Labs Reviewed by me
--- NOTE | 2023-12-23 09:03 | PTCARENOTE ---
cordis removed without incident.
[2023-12-23 10:13] VITALS: BP 108/69
[2023-12-23 10:20] VITALS: BP 125/70
--- NOTE | 2023-12-23 10:52 | CM ---
CM following for DC planning needs.
Pt. for DC to home today, POD#[address]
Met w/ patient at bedside. He feels well and is prepared for DC to home.
Reviewed DC plan for home w/ CT Transitional Care RN. Reviewed post op MD appointments + Cardiac Rehab.
No further needs noted.
Plan: HOME
[2023-12-23 11:46] VITALS: BP 105/69; BP 125/70; PULSE 62; O2SAT 98
[2023-12-23 12:03] VITALS: BP 99/60
--- NOTE | 2023-12-23 13:55 | PTCARENOTE ---
Pt's IV line & telemetry discontinued. Discussed D/C instructions w/pt & his spouse. 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 Pt escorted out via wheelchair w/spouse providing transportation home.
== END 2023-12-23 13:57 | disposition home or self-care (01) | DRG 235 ==
LOC: IVU 07:34
PROVIDERS: Anesthesiology; Clinical Nurse Specialist Acute Care; Physician Assistant Medical; Physician Assistant Surgical; ADMITTING PHYSICIAN Thoracic Surgery (Cardiothoracic Vascular Surgery); CONSULT PHYSICIAN Internal Medicine Critical Care Medicine; FAMILY PHYSICIAN Registered Nurse
PROC: 8E0W0CZ Robotic Assisted Procedure of Trunk Region, Open Approach (ICD-10-PCS; 2023-12-20)
PROC: B24BZZ4 Ultrasonography of Heart with Aorta, Transesophageal (ICD-10-PCS; 2023-12-20)
PROC: 02100A9 Bypass Coronary Artery, One Artery from Left Internal Mammary with Autologous Arterial Tissue, Open Approach (ICD-10-PCS; 2023-12-20)
PROC: 03B10ZZ Excision of Left Internal Mammary Artery, Open Approach (ICD-10-PCS; 2023-12-20)
DX: I25.10 Atherosclerotic heart disease of native coronary artery without angina pectoris (principal); J96.02 Acute respiratory failure with hypercapnia; D62 Acute posthemorrhagic anemia; I31.9 Disease of pericardium, unspecified; I10 Essential (primary) hypertension; E78.5 Hyperlipidemia, unspecified; N40.0 Benign prostatic hyperplasia without lower urinary tract symptoms; K21.9 Gastro-esophageal reflux disease without esophagitis; K22.70 Barrett's esophagus without dysplasia; E11.9 Type 2 diabetes mellitus without complications; Z79.84 Long term (current) use of oral hypoglycemic drugs; Z87.891 Personal history of nicotine dependence; I25.2 Old myocardial infarction
CPT/HCPCS: 93308; 36415; 71045; 80048; 80053; 81003; 81015; 82248; 82330; 82565; 82805; 82947; 82962; 83036; 83735; 84132; 84302; 84520; 85014; 85018; 85025; 85027; 85049; 85610; 85730; 86850; 86900; 86901; 86920; 87070; 93005; 93312; 93320; 93321; 93325; 93880; 94660; Q9950

== ENCOUNTER 2024-01-27 16:11 | Outpatient (RCR) | payer BC, SELFPAY | END 2024-01-27 23:59 | disposition home or self-care (01) | LOC: CRHB 16:11 | PROVIDERS: ATTENDING PHYSICIAN Internal Medicine Cardiovascular Disease | DX: I25.10 Atherosclerotic heart disease of native coronary artery without angina pectoris (principal); Z95.1 Presence of aortocoronary bypass graft; Z95.5 Presence of coronary angioplasty implant and graft | CPT/HCPCS: 93798 ==

== ENCOUNTER 2024-08-20 17:14 | Emergency (ER) | payer BC, SELFPAY ==
[2024-08-20 17:25] VITALS: BP 131/78
[2024-08-20 18:12] VITALS: BMI 24.4
[2024-08-20 18:43] LABS: ALT (SGPT) 44 U/L (0-50); AST (SGOT) 42 U/L (17-59); Albumin 4.8 g/dl (3.5-5.0); Alkaline Phosphatase 44 U/L (38-126); Blood Urea Nitrogen 21 mg/dl (9-20); Calcium 9.1 mg/dl (8.4-10.2); Carbon Dioxide 29 mmol/L (22-30); Chloride 104 mmol/L (98-107); Estimated Creatinine Clearance 93 ml/min; Glucose 108 mg/dl (70-99); Potassium 4.4 mmol/L (3.5-5.1); Sodium 140 mmol/L (135-145); Total Bilirubin 0.7 mg/dl (0.2-1.3); Total Protein 7.2 g/dl (6.3-8.2); eGFR > 60.00
[2024-08-20 18:52] LABS: Absolute Neutrophils -Man Diff 3.1 10^3/uL (1.4-6.5); Band Neutrophils 7 % (0-3); Eosinophils 3 % (0-6); Hematocrit 49.1 % (39.0-52.0); Hemoglobin 16.7 g/dL (13.0-18.0); Lymphocytes 12 % (20-51); Mean Corpuscular Hgb 29.8 pg (27.0-31.0); Mean Corpuscular Volume 87.7 fL (80.0-94.0); Mean Platelet Volume 8.5 fL (7.4-10.4); Monocytes 20 % (2-9); Platelet Count 167 10^3/uL (130-400); Red Cell Dist. Width 13.2 % (11.5-14.5); Segmented Neutrophils 49 % (42-75); Troponin I < 0.012 ng/ml; White Blood Cell Count 5.6 10^3/uL (4.8-10.8)
[2024-08-20 18:53] LABS: Anisocytosis 1+; Atypical Lymphocytes 8 %; Normal RBC Morphology No; Platelets Checked Yes
[2024-08-20 18:54] LABS: Total Cells Counted 100
--- NOTE | 2024-08-20 19:56 | ED.GENMED ---
History of Present Illness
General
Chief Complaint: Cough
Source: patient
Exam Limitations: none
Time Seen by Provider: 08/20/24 18:11
Nursing documentation reviewed up to this point in time: agreed with
History of Present Illness
History of Present Illness:
Patient presents to ED secondary to intermittent cough over the past 2 days, associated with bulging of the anterior chest wall with cough. Patient denies pain. Denies fever or chills. Denies trauma. Patient does have history of bypass surgery
last year and bulging is noted to be above the incision site and patient is concerned that there may be some complication. Patient unsure if he has seen these findings prior to 2 days ago.
Past History
Past History
ED Past Medical History: None; Negative HTN, Hypercholesterolemia or NIDDM
ED Past Surgical History: Urological (Kidney stone)
Social History
Tobacco: Former smoker
Alcohol: None
Personal:
Living: with family
Review of Systems
Review of Systems
Allergies reviewed?: Yes
Constitutional: Reports no symptoms
Respiratory: Reports cough; Denies trouble breathing
Cardiac: Reports no symptoms
ABD/GI: Reports no symptoms
Musculoskeletal: Reports no symptoms
Skin: Reports no symptoms
Neurological: Reports no symptoms
Phy Exam
Physical Exam
Physical Exam:
Physical Exam
General: no apparent distress, not acutely ill. afebrile
Head: nc/at. eomi
Neck: supple. no meningeal signs.
Heart: s1/s2 regular rate and rhythm.
Lungs: no acute respiratory distress. clear bilaterally. chest wall nontender to palpation
Abdomen: normal bowel sounds. not tender.
Neuro: alert and oriented x 3. no focal neurological deficits
Skin: no rash
Psychiatric: well kept. interactive and cooperative
Extremities: no edema. no calf tenderness.
Course
Orders/Labs/Results
Orders:
Orders
08/20/24 17:32
EKG [Electrocardiogram (*1)] Urgent
Reason for Study: Chest Pain
EKG- Treatment ONCE
08/20/24 18:11
CXR2 [CR Chest - 2 Views ] Urgent
Comment:
Reason For Exam: cough
08/20/24 18:15
CMP [Comprehensive Metabolic Panel] Urgent
Complete Blood Count/With Diff Urgent
Manual Differential Urgent
Troponin I Urgent
08/20/24 20:05
CT Chest W/o Iv Contrast Urgent
Comment:
Reason For Exam: left anterior chest wall protrusion, s/p CABG
Abnormal Lab Results
08/20/24
18:15
Band Neutrophils 7 H %
(0-3)
Lymphocytes (Manual) 12 L %
(20-51)
Monocytes (Manual) 20 H %
(2-9)
BUN 21 H mg/dl
(9-20)
Glucose 108 H mg/dl
(70-99)
08/20/24 18:15
08/20/24 18:15
Vital Signs
Initial and Last Documented VS:
Initial Vital Signs
Temp Pulse Resp BP Pulse Ox
98.3 F 71 18 131/78 97
08/20/24 17:25 08/20/24 17:25 08/20/24 17:25 08/20/24 17:25 08/20/24 17:25
Last Documented Vital Signs
Temp Pulse Resp BP Pulse Ox
98.3 F 71 18 131/78 97
08/20/24 17:25 08/20/24 17:25 08/20/24 17:25 08/20/24 17:25 08/20/24 18:16
MDM/Problems Addressed
MDM/Problems Addressed:
CXR: no acute findings.
Discussed with oncall CT surgeon, . Feels that soft tissue defect can be seen post-op. Does recommend obtaining CT chest without contrast, to evaluate for potential lung tissue entrapment. Afterwards, recommends following up with his CT
surgeon, , as outpatient.
CT chest report reviewed and discussed with patient and Dr. Arce, who feels that patient can be followed up as an outpatient.
*Critical Care Note
Total Time (30-74mins, 75-104mins- exclusive of procedures): Not Applicable
ED Attending Note
-
Portions of this chart may have been created with voice recognition software.� Occasional wrong word or��sound alike� substitutions may have occurred due to the inherent limitations of voice recognition software.
Discharge Plan
Departure
Patient Disposition: Home (Routine Discharge)
Date of Disposition: 08/20/24
Time of Disposition: 21:16
Patient with high blood pressure during this ER visit?: Yes
Condition: Good
Discharge Problem:
Hernia
Prescriptions:
No Action
Metamucil 3.4 gram/5.4 gram Powder
1 tsp PO HS
rabeprazole 20 mg Tablet,Delayed Release (Dr/Ec)
20 mg PO DAILY
rosuvastatin 40 mg Tablet
40 mg PO QPM Qty: 90 1RF
cyanocobalamin (vitamin B-12) [Vitamin B-12] 500 mcg Tablet
500 mcg PO BID
Patient Comments:
morning and lunch
magnesium glycinate 210 MG capsule
210 mg PO BID
Probiotic 10 billion cell Capsule
10,000 mmu cells PO DAILY
Patient Comments:
unknown mmu cell dose
aspirin 81 mg tablet,chewable
81 mg PO DAILY
Brilinta 90 mg tablet
90 mg PO BID
colchicine 0.6 mg Tablet
0.3 mg PO DAILY Qty: 30 0RF
metoprolol succinate [Toprol XL] 25 mg tablet extended release 24 hr
25 mg PO DAILY Qty: 30 0RF
gabapentin 100 mg Capsule
100 mg PO TID PRN (Reason: post-op pain) Qty: 30 0RF
Referrals:
Claude Argueta CRNP [Family Provider] -
Anthony Fink MD [Active] -
Activity Restrictions/Additional Instructions:
As discussed, please follow-up with your CT surgeon for further evaluation and treatment.
Interventions
Interventions:
*Risk Screen - Suicide Last Done: 08/20/24 17:25
*General Assessment Last Done: 08/20/24 17:25
*Neglect/Abuse Screening Last Done: 08/20/24 17:25
*ED- Fall Risk Assessment Last Done: 08/20/24 21:40
*ED COVID-19 Vaccine History Last Done: 08/20/24 21:40
*Nursing Disposition Last Done: 08/20/24 21:40
ED- Pulmonary Assessment Last Done: 08/20/24 18:44
Discharge Date and Time
Discharge Date/Time: 08/20/24 21:41
Print Language: UKRAINIAN
== END 2024-08-20 21:41 | disposition home or self-care (01) ==
LOC: EMR 17:14
PROVIDERS: EMERGENCY PHYSICIAN Emergency Medicine; FAMILY PHYSICIAN Registered Nurse
DX: K44.9 Diaphragmatic hernia without obstruction or gangrene (principal); R05.9 Cough, unspecified; R03.0 Elevated blood-pressure reading, without diagnosis of hypertension; Z95.1 Presence of aortocoronary bypass graft; Z87.442 Personal history of urinary calculi; Z87.891 Personal history of nicotine dependence; Z79.82 Long term (current) use of aspirin; Z88.1 Allergy status to other antibiotic agents; Z88.5 Allergy status to narcotic agent; Z88.8 Allergy status to other drugs, medicaments and biological substances
CPT/HCPCS: 99284; 71046; 71250; 80053; 84484; 85025; 93005

== ENCOUNTER 2024-10-09 09:16 | Emergency (ER) | payer BC, SELFPAY ==
[2024-10-09] VITALS (8 sets, daily range): BP systolic 118–130; BP diastolic 72–78; BMI 25.1
--- NOTE | 2024-10-09 10:10 | ED.GENMED ---
History of Present Illness
<Erickson Mac PA-C - Last Filed: 10/09/24 14:45>
General
Chief Complaint: Chest Pain
Source: patient
Exam Limitations: none
Time Seen by Provider: 10/09/24 09:54
History of Present Illness
History of Present Illness:
64-year-old male with history of coronary artery disease requiring bypass surgery and stents x 2 presents with exertional chest pressure over the past couple days. The pain goes away with rest. He denies shortness of breath. He is on aspirin and
prasugrel. He also is on statins. No leg swelling. No recent travel. No pain with deep breathing. At the time of my exam currently he has no chest discomfort
Past History
<Erickson Mac PA-C - Last Filed: 10/09/24 14:45>
Past History
ED Past Medical History: None; Negative HTN, Hypercholesterolemia or NIDDM
ED Past Surgical History: Urological (Kidney stone)
Social History
Tobacco: Former smoker
Alcohol: None
Personal:
Living: with family
Phy Exam
<Erickson Mac PA-C - Last Filed: 10/09/24 14:45>
Physical Exam
Physical Exam:
General: Well-appearing male no acute respiratory distress
HEENT: Normocephalic atraumatic
Heart: Regular rate and rhythm
Lungs: Clear no wheeze
Extremities: No cyanosis
Abdomen is soft nontender
Scores
<Erickson Mac PA-C - Last Filed: 10/09/24 14:45>
Heart Score for Chest Pain Patients
STEMI patient?: No
History: Moderately Suspicious
ECG: Normal
Age: >45 - <65 years
Risk Factors: >/= 3 Risk Factors or History of CAD
Troponin: </= Normal Limit
Heart Score for Chest Pain Patients: 4
Heart Score Risk: 20.3% MACE over next 6 weeks
Course
Kilt;Erickson Mac PA-C - Last Filed: 10/09/24 14:45>
Orders/Labs/Results
Orders:
Orders
10/09/24 09:18
Electrocardiogram (*1) Urgent
Reason for Study: Chest Pain
EKG- Treatment ONCE
10/09/24 10:02
CXR2 [CR Chest - 2 Views ] Urgent
Comment:
Reason For Exam: chest tightness with shortness of breath
10/09/24 10:04
Complete Blood Count/With Diff Urgent
Comprehensive Metabolic Panel Urgent
Magnesium Urgent
NT-proBNP Urgent
PTT Urgent
Prothrombin Time Urgent
Troponin I Urgent
10/09/24 13:49
Troponin I Urgent
Abnormal Lab Results
10/09/24
10:04
Absolute Monos (auto) 1.0 H 10^3/uL
(0.1-0.6)
Monocytes % 15.8 H %
(1.7-9.3)
Chloride 108 H mmol/L
(98-107)
Glucose 112 H mg/dl
(70-99)
Total Protein 6.2 L g/dl
(6.3-8.2)
10/09/24 10:04
10/09/24 10:04
Vital Signs
Initial and Last Documented VS:
Initial Vital Signs
Temp Pulse Resp BP Pulse Ox
98.1 F 63 16 127/76 98
10/09/24 09:26 10/09/24 09:26 10/09/24 09:26 10/09/24 09:26 10/09/24 09:26
Last Documented Vital Signs
Temp Pulse Resp BP Pulse Ox
98.1 F 53 20 118/75 98
10/09/24 09:26 10/09/24 11:12 10/09/24 11:12 10/09/24 11:12 10/09/24 11:12
<Ivan Yuen MD - Last Filed: 10/09/24 13:37>
Orders/Labs/Results
Orders:
Orders
10/09/24 09:18
Electrocardiogram (*1) Urgent
Reason for Study: Chest Pain
EKG- Treatment ONCE
10/09/24 10:02
CXR2 [CR Chest - 2 Views ] Urgent
Comment:
Reason For Exam: chest tightness with shortness of breath
10/09/24 10:04
Complete Blood Count/With Diff Urgent
Comprehensive Metabolic Panel Urgent
Magnesium Urgent
NT-proBNP Urgent
PTT Urgent
Prothrombin Time Urgent
Troponin I Urgent
10/09/24 13:49
Troponin I Urgent
Abnormal Lab Results
10/09/24
10:04
Absolute Monos (auto) 1.0 H 10^3/uL
(0.1-0.6)
Monocytes % 15.8 H %
(1.7-9.3)
Chloride 108 H mmol/L
(98-107)
Glucose 112 H mg/dl
(70-99)
Total Protein 6.2 L g/dl
(6.3-8.2)
10/09/24 10:04
10/09/24 10:04
Vital Signs
Initial and Last Documented VS:
Initial Vital Signs
Temp Pulse Resp BP Pulse Ox
98.1 F 63 16 127/76 98
10/09/24 09:26 10/09/24 09:26 10/09/24 09:26 10/09/24 09:26 10/09/24 09:26
Last Documented Vital Signs
Temp Pulse Resp BP Pulse Ox
98.1 F 53 20 118/75 98
10/09/24 09:26 10/09/24 11:12 10/09/24 11:12 10/09/24 11:12 10/09/24 11:12
<Erickson Mac PA-C - Last Filed: 10/09/24 14:45>
MDM/Problems Addressed
Differential Diagnosis Includes:
Chest pressure with exertion. Patient does have a history of coronary artery disease. His story is somewhat concerning. No chest pressure currently. Vital signs are stable. Consider ACS versus angina. Unlikely to be PE given intermittent
symptoms.
Will check labs. EKG shows sinus rhythm without ischemic changes.
Chest x-ray and troponin
<Erickson Mac PA-C - Last Filed: 10/09/24 14:45>
*Pulse Oximetry
SaO2: 96
Oxygen Mode of Delivery: Room air
Patient hypoxic: no
*Critical Care Note
Total Time (30-74mins, 75-104mins- exclusive of procedures): Not Applicable
<Erickson Mac PA-C - Last Filed: 10/09/24 14:45>
Update Note
Update Note:
Initial troponin undetectable. Discussed with cardiology who saw the patient. Repeat troponin ordered. Repeat troponin 0.013 which is normal. Patient remains pain-free. Patient will follow-up on an expedited basis with cardiology for stress
test in the near future. He was advised to refrain from physical activity at this time and return for worsening
ED Attending Note
<Erickson Mac PA-C - Last Filed: 10/09/24 14:45>
-
Portions of this chart may have been created with voice recognition software.� Occasional wrong word or��sound alike� substitutions may have occurred due to the inherent limitations of voice recognition software.
<Ivan Yuen MD - Last Filed: 10/09/24 13:37>
ED Attending Note
Patient seen and examined by attending physician: Yes
ED Attending Note:
I have seen and evaluated the patient with a [id number] encounter. I have spoken to the advance practicer provider and involved in the medical history, the physical exam, medical decision making.
Evaluation and management service: agree unless noted differently below.
Results interpretation: agree unless noted differently below.
Focused HPI: 64-year-old male presents for evaluation of chest pain. Of note patient has history of CAD status post stents and CABG in October/November 2023. His primary philatelic consultant is Dr. Robb. He says that he has been eating well and
exercising regularly�he typically exercises for 15 to 30 minutes a day. He says that over the past week he noticed that when he exerts himself he gets chest tightness. He describes a vague tightness in the chest no associated shortness of breath,
palpitations, nausea, vomiting, diaphoresis. Symptoms have been rather consistent for a week when exerting himself. He says that he did not have any kind of chest tightness prior to his heart attack in October�he says that his symptoms were mainly
'feeling off' and headache�but given the exertional component to his symptoms decided to come to the emergency room to be evaluated. Currently he is chest pain-free.
Physical exam: Awake alert no distress. Vital signs normal. No cardiac rubs gallops or murmurs. Lungs clear to auscultation bilaterally. No edema in the legs. Good pulses throughout.
Medical Decision Makin-year-old male presents for evaluation of exertional chest pain; he does have significant cardiac history including CABG in November. Vitals and exam as above. Labs sent including CBC and CMP were unremarkable.
Troponin undetectable. Chest x-ray shows no acute disease. EKG no acute ischemia. Given his significant cardiac history and exertional component case discussed with cardiology for consultation.
Discharge Plan
Departure
Patient Disposition: Home (Routine Discharge)
Date of Disposition: 10/09/24
Time of Disposition: 14:43
Patient with high blood pressure during this ER visit?: No
Discharge Problem:
Chest pain
Instructions: Chest Pain CBC Follow Up
Prescriptions:
No Action
Metamucil 3.4 gram/5.4 gram Powder
1 tsp PO HS
rabeprazole 20 mg Tablet,Delayed Release (Dr/Ec)
20 mg PO DAILY
rosuvastatin 40 mg Tablet
40 mg PO QPM Qty: 90 1RF
cyanocobalamin (vitamin B-12) [Vitamin B-12] 500 mcg Tablet
500 mcg PO BID
Patient Comments:
morning and lunch
magnesium glycinate 210 MG capsule
210 mg PO BID
Probiotic 10 billion cell Capsule
10,000 mmu cells PO DAILY
Patient Comments:
unknown mmu cell dose
aspirin 81 mg tablet,chewable
81 mg PO DAILY
Brilinta 90 mg tablet
90 mg PO BID
colchicine 0.6 mg Tablet
0.3 mg PO DAILY Qty: 30 0RF
metoprolol succinate [Toprol XL] 25 mg tablet extended release 24 hr
25 mg PO DAILY Qty: 30 0RF
gabapentin 100 mg Capsule
100 mg PO TID PRN (Reason: post-op pain) Qty: 30 0RF
Referrals:
Claude Argeuta CRNP [Family Provider, Internal Medicine]
Activity Restrictions/Additional Instructions:
Refrain from physical activity. Please return here for worsening symptoms. Follow-up with cardiology otherwise
Interventions
Interventions:
*Risk Screen - Suicide Last Done: 10/09/24 09:26
*General Assessment Last Done: 10/09/24 10:03
*Neglect/Abuse Screening Last Done: 10/09/24 09:26
*ED- Fall Risk Assessment Last Done: 10/09/24 10:03
*ED COVID-19 Vaccine History Last Done: 10/09/24 10:03
ED- Cardiac Assessment Last Done: 10/09/24 10:03
Discharge Date and Time
Print Language: SYRIAC
[2024-10-09 10:15] LABS: Hematocrit 44.3 % (39.0-52.0); Hemoglobin 15.1 g/dL (13.0-18.0); Mean Corp Hgb Conc. 34.1 g/dL (33.0-37.0); Mean Corpuscular Volume 88.1 fL (80.0-94.0); Nucleated Red Blood Cells % 0 % (-); Platelet Count 169 10^3/uL (130-400); Red Cell Dist. Width 13.1 % (11.5-14.5)
[2024-10-09 10:26] LABS: INR 0.96; PT 13.1 Sec (11.4-14.6)
[2024-10-09 10:27] LABS: APTT 27.7 Sec (23.4-35.0)
[2024-10-09 10:49] LABS: ALT (SGPT) 29 U/L (0-50); AST (SGOT) 26 U/L (17-59); Albumin 4.1 g/dl (3.5-5.0); Alkaline Phosphatase 39 U/L (38-126); Blood Urea Nitrogen 18 mg/dl (9-20); Calcium 8.9 mg/dl (8.4-10.2); Carbon Dioxide 25 mmol/L (22-30); Chloride 108 mmol/L (98-107); Estimated Creatinine Clearance 93 ml/min; Glucose 112 mg/dl (70-99); Magnesium 2.1 mg/dl (1.6-2.3); Potassium 4.4 mmol/L (3.5-5.1); Sodium 136 mmol/L (135-145); Total Protein 6.2 g/dl (6.3-8.2); eGFR > 60.00
[2024-10-09 10:59] LABS: Troponin I < 0.012 ng/ml
--- NOTE | 2024-10-09 13:34 | CON.CAR ---
Addendum entered and electronically signed by Alejandro Garcia MD 10/09/24 15:19:
I saw and examined the patient.
The SECURITY DEVELOPER's note was reviewed and I agree with the note.
64-year-old male with a history of coronary artery disease stenting of OM1 and OM 2 10/2027 and MIDCAB HAWKINS to the LAD 11/2023. Patient presents with exertional chest discomfort. Patient states that prior to his coronary stenting he said he had a
hot sensations that did not feel like chest pain he had a sensation of in his neck and he had some headaches he has not had those symptoms since his surgery. He is usually active and exercises regularly this includes lifting weights and then going
on the exercise bike over the past week he sometimes noticed some left upper chest discomfort near the site of his incision when he is on the bike. It is nonlimiting he still able to complete the ride he will have the symptoms for about 10 minutes
while on the bike and then they will resolve in recovery. Sometimes he will have a sensation up towards the shoulder or towards the ear. No symptoms at rest no symptoms with low-level activity. No difference in symptoms today it is just that it
is kept recurring so we opted to come to the ER. Currently chest pain-free troponins are negative ECG shows sinus rhythm with nonspecific T wave abnormality. With exertional symptoms it is possible he has exertional angina although components of
his symptoms are different than his previous angina. We discussed treatment options. Based on the stability of his symptoms over the past week and only with more intense exertion with negative cardiac enzymes we have we will plan on expedited
outpatient evaluation. This will include a nuclear perfusion stress test. However if the patient has any rest symptoms or if he is having symptoms with lower level activity he will return to the ER.
Original Note:
Consultation
Consultation Request
Date/Time Consultation Requested: 10/09/2024 12:50
Date/Time Consultation Performed: 10/09/2024 13:00
Requesting Provider: CRISTA Mac
Performing Provider: CHARLES Grady for Dr. Garcia
Reason for Consultation: Chest pressure
Medical History
-
Chief Complaint: Chest pressure
History of Present Illness:
Magnus Nelson is a 64-year-old male (known to Dr. 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
department with chief complaint of chest pressure. This started approximately 5 days ago. His chest pressure is exertional. He continues to workout every morning. He has left sided anterior chest pressure. He has no associated shortness of
breath. He may be experiencing some more diaphoresis but nothing significant. He has had no chest discomfort at rest. His EKG shows lateral T wave inversion. Troponin <0.012.
Past Medical History
Past Medical History: CAD, GERD (With Beyer's esophagus & hiatal hernia), Hypercholesterolemia and Other (Prediabetes)
Past Surgical History: Cardiac (HAWKINS-LAD)
Social History
Tobacco: Non-Smoker
Alcohol: None
Drug: None
Personal:
Living: With Family
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
Family History
Family History: Reviewed & Not Pertinent
Allergies / Home Medications
Allergy/AdvReac Type Severity Reaction Status Date / Time
atorvastatin Allergy Mild Leg pain Verified 08/20/24 17:31
amoxicillin Allergy Shortness Verified 08/20/24 17:31
of Breath
codeine AdvReac Nausea, Verified 08/20/24 17:31
anxiety
�Medication �Instructions �Recorded �Confirmed �Type
psyllium husk 3.4 gram/5.4 gram 1 tsp PO HS 04/25/23 12/20/23 History
oral powder (Metamucil)
rabeprazole 20 mg tablet,delayed 20 mg PO DAILY Gastrointestinal 11/10/23 12/20/23 History
release Issue
rosuvastatin 40 mg tablet 40 mg PO QPM #90 tabs 11/11/23 12/20/23 Rx
cyanocobalamin (vitamin B-12) 500 500 mcg PO BID Supplement 12/09/23 12/20/23 History
mcg tablet (Vitamin B-12)
magnesium glycinate 210 mg PO BID 12/09/23 12/20/23 History
Lactobacillus acidophilus 10 10,000 mmu cells PO DAILY 12/20/23 12/20/23 History
billion cell capsule (Probiotic) Gastrointestinal Issue
aspirin 81 mg chewable tablet 81 mg PO DAILY Blood Clot 12/21/23 12/20/23 History
Prevention/Tx
ticagrelor 90 mg tablet (Brilinta) 90 mg PO BID Blood Clot 12/21/23 12/20/23 History
Prevention/Tx
colchicine 0.6 mg tablet 0.3 mg (1/2 x 0.6 mg) PO DAILY #30 12/23/23 Rx
tabs
gabapentin 100 mg capsule 100 mg PO TID PRN post-op pain #30 12/23/23 Rx
caps
metoprolol succinate 25 mg 25 mg PO DAILY heart rate/blood 12/23/23 Rx
tablet,extended release 24 hr pressure #30 tabs
(Toprol XL)
Review of Systems
-
History Source: Patient
All other systems: Negative unless noted
Constitutional: No Symptoms
EENT: No Symptoms
Respiratory: No Symptoms
Cardiac: No Symptoms
Abdomen/GI: No Symptoms
: No Symptoms
Musculoskeletal: No Symptoms
Skin: No Symptoms
Neurological: No Symptoms
Endocrine: No Symptoms
Hematologic/Lymphatic: No Symptoms
Physical Exam
Vital Signs
Temp Pulse Resp BP Pulse Ox
98.1 F 53 20 118/75 98
10/09/24 09:26 10/09/24 11:12 10/09/24 11:12 10/09/24 11:12 10/09/24 11:12
Lab Results
10/09/24 10:04
10/09/24 10:04
Troponin I < 0.012 ng/ml 10/09/24 10:04
Sbu-W-Albujreogzr Pept 155 pg/ml 10/09/24 10:04
Physical Exam
General: Well Developed, Well Nourished, No Apparent Distress and Comfortable
HEENT: Normocephalic and Moist Mucous Membranes
Respiratory: Clear and Non Labored Respirations
Cardiac: S1/S2 and Regular Rhythm (Sinus bradycardia); Negative Peripheral Edema
Breast: Deferred by me
GI: Soft, Non Tender, Non Distended and Normal Bowel Sounds
Rectal: Deferred by Provider
Genito-urinary: No Costovertebral Tender
Musculoskeletal: No Clubbing, No Cyanosis and No Edema
Skin: Warm and Dry
Neuro: AO x 3
Hematologic/Lymphatic: No Lymphadenopathy
Psych: Calm
Impression / Plan
-
I/P: 64M with CAD (PCI to OM1 and OM 2 10/2023, MIDCAB HAWKINS�LAD 11/2023), dyslipidemia, prediabetes, GERD, Beyer's esophagus, and hiatal hernia who presented to the emergency department with chief complaint of chest pressure.
Chest pressure
- None at rest, exertional only
- EKG with T wave inversion, troponin <0.012, repeat
- Hold beta-girish prior to testing
Coronary artery disease
- PCI to OM1 and OM 2 10/2023, MIDCAB HAWKINS�LAD 11/2023
- Continue DAPT with aspirin and ticagrelor
Dyslipidemia, LDL at goal on rosuvastatin and Zetia, continue
Prediabetes, care per primary
Data Reviewed
-
EKG: Report Reviewed by me
Labs: Labs Reviewed by me
Old Records: Reviewed
[2024-10-09 14:32] LABS: Troponin I 0.013 ng/ml
== END 2024-10-09 14:56 | disposition home or self-care (01) ==
LOC: EMR 09:16
PROVIDERS: Nurse Practitioner Gerontology; Physician Assistant; EMERGENCY PHYSICIAN Emergency Medicine; FAMILY PHYSICIAN Registered Nurse; OTHER PHYSICIAN Internal Medicine Cardiovascular Disease
DX: R07.89 Other chest pain (principal); I25.10 Atherosclerotic heart disease of native coronary artery without angina pectoris; E78.5 Hyperlipidemia, unspecified; Z87.891 Personal history of nicotine dependence; Z95.5 Presence of coronary angioplasty implant and graft; Z95.1 Presence of aortocoronary bypass graft; Z79.02 Long term (current) use of antithrombotics/antiplatelets; Z79.82 Long term (current) use of aspirin
CPT/HCPCS: 99285; 71046; 80053; 83735; 83880; 84484; 85025; 85610; 85730; 93005

== ENCOUNTER → 2024-10-10 11:25 | Outpatient (REF) | payer BC, SELFPAY | LOC: RCS 11:25 | PROVIDERS: ATTENDING PHYSICIAN Internal Medicine Cardiovascular Disease; FAMILY PHYSICIAN Registered Nurse | DX: I25.10 Atherosclerotic heart disease of native coronary artery without angina pectoris (principal); R07.89 Other chest pain | CPT/HCPCS: 78452; 93017; A9500 ==